=== PATIENT | male | born 1960 | race Caucasian/White ===

== ENCOUNTER 2017-12-05 09:55 | Observation (INO) | payer MEDICARE, OTHER ==
[~2017-12-05] VITALS: Ht 185.4 cm; Wt 103.1 kg
[2017-12-05] VITALS (13 sets, daily range): BP systolic 114–177; BP diastolic 70–93; PULSE 75–93; RESP 16–22; TEMP 97.1–98.8; O2SAT 94–100
[~2017-12-05 09:55] MED LIST: ALL220TA PO; AMLO5 PO; ASCO500C PO; ATOR40TA49 PO; AZAT50 PO; CALC600T34 PO; COMMODE 3:1; COPAXONE; ESZO3 PO; LISI-360 PO; LOSA50TA PO; MAGN400 PO; METF500 PO; OXYB5 PO
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
[2017-12-05] MEDS ORDERED: SODIUM CHLORIDE 0.9% FLUSH 10 ML FLUSH IVF PRN (10:45)
[2017-12-05 10:48] LABS: BASOPHIL # 0.1 TH/MM3 (0-0.2); BASOPHIL % 1.5 % (0.0-2.0); EOSINOPHIL # 0.1 TH/MM3 (0-0.4); EOSINOPHIL % 2.1 % (0.0-4.0); HEMOGLOBIN 7.5 GM/DL (13.0-17.0); LYMPH % 12.7 % (9.0-44.0); LYMPHOCYTE # 0.8 TH/MM3 (1.0-4.8); MEAN CELL VOLUME 61.2 FL (80.0-100.0); MEAN CORPUSCULAR HEMOGLOBIN 18.4 PG (27.0-34.0); MEAN PLATELET VOLUME 6.7 FL (7.0-11.0); MONO % 6.6 % (0.0-8.0); MONOCYTE # 0.4 TH/MM3 (0-0.9); NEUT % 77.1 % (16.0-70.0); PLATELET COUNT 438 TH/MM3 (150-450); RED BLOOD COUNT 4.08 MIL/MM3 (4.50-5.90); RED CELL DISTRIBUTION WIDTH 15.6 % (11.6-17.2); WHITE BLOOD COUNT 6.4 TH/MM3 (4.0-11.0)
[2017-12-05 11:04] LABS: CALCIUM 8.5 MG/DL (8.5-10.1)
[2017-12-05 11:05] LABS: BICARBONATE 26.1 MEQ/L (21.0-32.0)
[2017-12-05 11:08] LABS: CREATININE 1.2 MG/DL (0.60-1.30)
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
[2017-12-05 11:51] LABS: BILIRUBIN, URINE NEG (NEG); BLOOD, URINE NEG (NEG); GLUCOSE,URINE 500 mg/dL (NEG); KETONE, URINE TRACE mg/dL (NEG); NITRITE,URINE NEG (NEG); PH, URINE 5.5 (5.0-8.5); URINE COLOR YELLOW (YELLW/STRAW); URINE LEUKOCYTE ESTERASE NEG (NEG)
[2017-12-05 11:57] LABS: AMORPHOUS SEDIMENT, URINE FEW; RBC, URINE 0-3 /hpf (0-3); SQUAMOUS EPITHELIAL CELL URINE 0-5 /hpf (0-5)
[2017-12-05] MEDS ORDERED: SODIUM CHLOR 0.9% 250 ML INJ 250 ML IV ONE (12:30)
[2017-12-05] MEDS ORDERED: methylPREDNISolone SOD SUCC 125 MG/2 ML VIAL IV PUSH ONE (12:30)
[2017-12-05] MEDS ORDERED: INSULIN HUMAN REGULAR 1,000 UNITS/10 ML VIAL SQ ONE (12:45)
[2017-12-05 13:09] LABS: PROTHROMBIN TIME - PATIENT 9.9 SEC (9.8-11.6)
[2017-12-05] MEDS ORDERED: SODIUM CHLORIDE 0.9% FLUSH 10 ML FLUSH IV FLUSH PRN (13:15)
[2017-12-05] MEDS ORDERED: NALOXONE HCL 0.4 MG/ML AMP IV PUSH PRN (13:15)
[2017-12-05] MEDS ORDERED: MAGNESIUM HYDROXIDE SUSP 30 ML CUP PO PRN (14:00)
[2017-12-05] MEDS: methylPREDNISolone SOD SUCC 125 MG/2 ML VIAL IV SCH (18:03)
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
[2017-12-06] VITALS: BP 153/81; PULSE 88; RESP 20; TEMP 96.4; O2SAT 96
[2017-12-06] MEDS: SODIUM CHLORIDE 0.9% FLUSH 10 ML FLUSH IV FLUSH SCH ×3 (00:57→21:00)
[2017-12-06] MEDS: methylPREDNISolone SOD SUCC 125 MG/2 ML VIAL IV SCH ×4 (00:57→18:50)
[2017-12-06 06:42] LABS: HEMATOCRIT 30.3 % (39.0-51.0); HEMOGLOBIN 9.1 GM/DL (13.0-17.0); MEAN CELL VOLUME 66.1 FL (80.0-100.0); MEAN CORPUSCULAR HEMOGLOBIN 19.9 PG (27.0-34.0); MEAN CORPUSCULAR HGB CONC 30.1 % (32.0-36.0); NEUT % 91.7 % (16.0-70.0); PLATELET COUNT 394 TH/MM3 (150-450); RED BLOOD COUNT 4.59 MIL/MM3 (4.50-5.90); RED CELL DISTRIBUTION WIDTH 21.3 % (11.6-17.2); WHITE BLOOD COUNT 8.9 TH/MM3 (4.0-11.0)
[2017-12-06 06:43] LABS: AUTOMATED NEUTROPHIL # 8.1 TH/MM3 (1.8-7.7); BASOPHIL % 0.1 % (0.0-2.0); EOSINOPHIL % 0.1 % (0.0-4.0); LYMPH % 7.5 % (9.0-44.0); LYMPHOCYTE # 0.7 TH/MM3 (1.0-4.8); MONO % 0.6 % (0.0-8.0); MONOCYTE # 0.1 TH/MM3 (0-0.9)
[2017-12-06 06:46] LABS: CHLORIDE 106 MEQ/L (98-107); SODIUM (NA) 139 MEQ/L (136-145)
[2017-12-06 06:54] LABS: ALBUMIN 3.3 GM/DL (3.4-5.0); BICARBONATE 21.4 MEQ/L (21.0-32.0); BLOOD UREA NITROGEN 28 MG/DL (7-18); CALCIUM 8.5 MG/DL (8.5-10.1); GLUCOSE,RANDOM 317 MG/DL (74-106)
[2017-12-06 06:55] LABS: ALT (GPT) 36 U/L (12-78); AST (GOT) 15 U/L (15-37)
[2017-12-06 06:57] LABS: GLOMERULAR FILTRATION RATE 57 ML/MIN (>89); TOTAL BILIRUBIN ADULT 1.4 MG/DL (0.2-1.0); TOTAL PROTEIN 6.9 GM/DL (6.4-8.2)
[2017-12-06 06:58] LABS: ALKALINE PHOSPHATASE 106 U/L (45-117)
[2017-12-06 07:34] LABS: OVALOCYTES 1+ (NORMAL)
[2017-12-06 08:00] VITALS: BP 154/79; PULSE 88; RESP 18; TEMP 97.3; O2SAT 94
--- NOTE | 2017-12-06 08:34 | MB ---
cc: Noah Shafer MD, PhD DATE: 12/05/2017 REASON FOR CONSULTATION: Multiple sclerosis exacerbation. HISTORY OF PRESENT ILLNESS: Mr. 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 He takes Tecfidera for that. He now presents with urinary incontinence, increasing right leg weakness as well. He was also found to be very anemic in the ER with low hemoglobin of 7.5. He denies any blood loss. Denies any blood in the stool or dark tarry stools. PAST MEDICAL HISTORY: He has a history of multiple sclerosis as noted above. PHYSICAL EXAMINATION: NEUROLOGIC: He is alert and oriented. Speech is normal. Cranial nerves, he has got bilateral Is and Os with dissociated nystagmus. Motor exam, 5/5 in all groups in both upper extremities. He is weak in the right leg at 4/5 proximally and distally. Normal strength left leg. Reflexes are 2+ symmetric. IMAGING: CT of the brain, no acute change. LABORATORY DATA: White count 6400, hemoglobin 7.5, hematocrit 25%, platelet count 438,000. The PT is 9.9, INR 1.0. Sodium is 141, potassium 4.6, chloride 108, CO2 is 26.1, the BUN is 23, creatinine 1.2, GFR 62, glucose 260. Urinalysis, the pH is 5.5, specific gravity is 1.030. IMPRESSION AND PLAN: 1. Multiple sclerosis exacerbation. Recommend Solu-Medrol 250 mg IV every 6 hours for 3-5 days. 2. Anemia, rule out gastrointestinal blood loss, rule out other cause of anemia. Rule out effect of Tecfidera. Noah Shafer MD, PhD SELENE/JONATHON , 08:17 PM , 08:44 PM
--- NOTE | 2017-12-06 11:50 | HHI.PR ---
Subjective Remarks MS exacerbation appears improved. Patient is continent overnight. Anemia improved status post transfusion. Either a bowel movement for stool study of blood versus documentation of stable or improve in hemoglobin will be needed prior to consideration for discharge. In regards to his MS exacerbation he may be ready for discharge soon, neurology evaluation pending. Objective Vital Signs Date Time Temp Pulse Resp B/P (MAP) Pulse Ox O2 Delivery O2 Flow Rate FiO2 12/06/17 08:00 97.3 88 18 154/79 (104) 94 12/06/17 00:00 96.4 88 20 153/81 (105) 96 12/05/17 20:26 98.5 85 16 158/87 (110) 98 12/05/17 20:00 97.1 90 22 158/77 (104) 94 12/05/17 18:44 98.8 88 18 164/87 98 12/05/17 18:31 98.4 90 18 177/87 98 12/05/17 18:26 89 18 168/93 (118) 99 Room Air 12/05/17 17:51 98.1 87 19 158/87 100 12/05/17 16:46 98.2 89 18 161/87 99 12/05/17 16:31 98.0 93 18 157/80 98 12/05/17 15:00 Room Air 12/05/17 15:00 99 Room Air 12/05/17 13:10 75 18 146/78 (100) 100 Room Air I/O 12/05/17 12/05/17 12/05/17 12/06/17 12/06/17 12/06/17 07:00 15:00 23:00 07:00 15:00 23:00 Intake Total 240 ml 1600 ml 420 ml Output Total 350 ml 250 ml Balance -110 ml 1350 ml 420 ml Intake Oral 240 ml 400 ml 420 ml Packed Cells 800 ml Blood Product IV Normal Saline Flush 400 ml Output Urine Total 350 ml 250 ml # Voids 2 1 3 1 # Bowel Movements 0 Result Diagram: 12/06/1755412/06/17 0555 Objective Remarks GENERAL: NAD, A&Ox3, chronic slurred speech. HEAD: Normocephalic. NECK: Supple, trachea midline. No lymphadenopathy. EYES: No scleral icterus. No injection or drainage. CARDIOVASCULAR: Regular rate and rhythm without murmurs, gallops, or rubs. RESPIRATORY: Breath sounds equal bilaterally. No accessory muscle use. GASTROINTESTINAL: Abdomen soft, non-tender, nondistended. MUSCULOSKELETAL: No cyanosis, or edema. SKIN: Warm and dry. NEURO: No focal neurological deficitis. Chronic slurred speech and motor neuro deficits due to MS. A/P Problem List: (1) Multiple sclerosis exacerbation ICD Code: G35 - Multiple sclerosis Status: Acute (2) Multiple sclerosis ICD Code: G35 - Multiple sclerosis Status: Acute (3) Symptomatic anemia ICD Code: D64.9 - Anemia, unspecified Status: Acute (4) Anemia ICD Code: D64.9 - Anemia, unspecified Assessment and Plan 57-year-old male admitted secondary to multiple sclerosis exacerbation with finding of symptomatic anemia Multiple sclerosis exacerbation Improving on present treatment Continue steroids Neurology following Solu-Medrol 250 mg IV every 6 hours for total 3-5 days, per neurology Monitor for improvement in symptoms Symptomatic anemia Transfuse 1 unit packed red blood cells today Test stool for blood GI workup if stool testing is positive for blood Hematology workup if stool testing is negative for blood Follow hemoglobin levels Continue workup Diabetes mellitus type 2 Follow blood sugars Insulin sliding scale Diabetic diet DVT prophylaxis Live Ba MD Dec 06, 2017 11:50
[2017-12-06 12:00] VITALS: BP 138/71; PULSE 103; RESP 18; TEMP 98; O2SAT 95
[2017-12-06 15:28] LABS: HEMATOCRIT 33.5 % (39.0-51.0); HEMOGLOBIN 9.9 GM/DL (13.0-17.0)
[2017-12-06 16:00] VITALS: BP 144/70; PULSE 72; RESP 16; TEMP 97.6; O2SAT 95
[2017-12-06 20:00] VITALS: BP 163/98; PULSE 98; RESP 20; TEMP 99.4; O2SAT 93
[2017-12-07] VITALS: BP 166/93; PULSE 109; RESP 20; TEMP 97.6; O2SAT 92
[2017-12-07] MEDS: methylPREDNISolone SOD SUCC 125 MG/2 ML VIAL IV SCH ×3 (00:04→12:24)
[2017-12-07] MEDS: ONDANSETRON HCL 4 MG/2 ML VIAL IVP PRN ×2 (06:13→12:21)
[2017-12-07] MEDS ORDERED: ENALAPRILAT 1.25 MG/ML VIAL IV PUSH PRN (07:30)
[2017-12-07] MEDS ORDERED: cloNIDine HCL 0.1 MG TAB PO PRN (07:30)
[2017-12-07] MEDS ORDERED: DEXTROSE 50% IN WATER 50 ML VIAL(D50) IV PUSH PRN (07:30)
[2017-12-07] MEDS ORDERED: GLUCAGON 1 MG/ML VIAL OTHER PRN (07:30)
[2017-12-07 08:00] VITALS: BP 185/95; PULSE 99; RESP 18; TEMP 98.4; O2SAT 96
[2017-12-07] MEDS: INSULIN ASPART SUPPLEMENTAL SCALE SQ SCH ×2 (08:08→11:47)
[2017-12-07] MEDS: SODIUM CHLORIDE 0.9% FLUSH 10 ML FLUSH IV FLUSH SCH (08:09)
[2017-12-07 08:52] LABS: AUTOMATED NEUTROPHIL # 13.8 TH/MM3 (1.8-7.7); BASOPHIL % 0.2 % (0.0-2.0); EOSINOPHIL % 0.1 % (0.0-4.0); HEMATOCRIT 34.4 % (39.0-51.0); HEMOGLOBIN 10.6 GM/DL (13.0-17.0); LYMPHOCYTE # 0.6 TH/MM3 (1.0-4.8); MEAN CORPUSCULAR HEMOGLOBIN 20.6 PG (27.0-34.0); MEAN CORPUSCULAR HGB CONC 30.7 % (32.0-36.0); MONO % 1.6 % (0.0-8.0); MONOCYTE # 0.2 TH/MM3 (0-0.9); NEUT % 94.1 % (16.0-70.0); PLATELET COUNT 449 TH/MM3 (150-450); RED BLOOD COUNT 5.13 MIL/MM3 (4.50-5.90); RED CELL DISTRIBUTION WIDTH 21.7 % (11.6-17.2); WHITE BLOOD COUNT 14.6 TH/MM3 (4.0-11.0)
[2017-12-07 09:10] LABS: CHLORIDE 104 MEQ/L (98-107); SODIUM (NA) 140 MEQ/L (136-145)
[2017-12-07 09:14] LABS: CALCIUM 8.8 MG/DL (8.5-10.1)
[2017-12-07 09:15] LABS: ALBUMIN 3.6 GM/DL (3.4-5.0); BICARBONATE 24.6 MEQ/L (21.0-32.0)
[2017-12-07 09:41] LABS: OVALOCYTES 1+ (NORMAL)
[2017-12-07 09:46] LABS: ALKALINE PHOSPHATASE 112 U/L (45-117); ALT (GPT) 53 U/L (12-78); AST (GOT) 23 U/L (15-37); BLOOD UREA NITROGEN 49 MG/DL (7-18); GLOMERULAR FILTRATION RATE 45 ML/MIN (>89); TOTAL BILIRUBIN ADULT 0.7 MG/DL (0.2-1.0); TOTAL PROTEIN 7.4 GM/DL (6.4-8.2)
[2017-12-07 10:19] LABS: GLUCOSE,RANDOM 485 MG/DL (74-106)
[2017-12-07 11:02] LABS: % SATURATION IRON PROFILE 4.9 % (20-50); FERRITIN 62 NG/ML (26-388); IRON (FE) 24 MCG/DL (65-175); TOTAL IRON BINDING CAPACITY 487 MCG/DL (250-450)
[2017-12-07 12:00] VITALS: BP 149/76; PULSE 103; RESP 18; TEMP 97.3; O2SAT 96
[2017-12-07] MEDS ORDERED: SOLU1INJ IV (13:57)
--- NOTE | 2017-12-07 13:59 | HHI.FF ---
Face to Face Verification Diagnosis: (1) Multiple sclerosis exacerbation (2) Symptomatic anemia Home Health Nursing Order: Medical education Signs/symptoms of disease process IV medication administration Instructions: One time IV solumedrol dosing, on 12/08/17. Stool collection, to be sent to lab. Hgb&Hct blood draw in 3-5 days. Follow for MS exacerbation symptoms ( neurological decline from baseline). I have seen patient Chris Wilkes on 12/07/17. My clinical findings support the need for the requested home health care services because: Ltd mobility - disease progression Deconditioned w/ increased weakness Limited ability to care for self High risk of falls Injectable med education/admin I certify that my clinical findings support that this patient is homebound because: Unsteady gait/balance Unsafe to leave home unassisted [id number] bed/chair Unable to use public transportation Live Melissa MD Dec 07, 2017 13:59
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
--- NOTE | 2017-12-07 19:37 | HHI.PR ---
Review/Management Diagnosis multiple sclerosis exacerbation Plan ok to dc home with outpatient solumedrol one more day, then prednisone taper-- 60 ,g daily to reduce by 10 mg every two days until off RTO my office 1 week Diagnosis/Plan: Subjective Subjective Comments No acute events reported No headache reports some improvement but still very weak Allergies Allergies Coded Allergies No Known Allergies (Verified Allergy, Unknown, 12/05/17) Exam I&O / VS 12/07/17 12/07/17 12/08/17 15:00 23:00 07:00 Intake Total 480 ml Balance 480 ml Intake Oral 480 ml # Voids 4 Vital Signs Date Time Temp Pulse Resp B/P (MAP) Pulse Ox O2 Delivery O2 Flow Rate FiO2 12/07/17 12:00 97.3 103 18 149/76 (100) 96 12/07/17 08:00 98.4 99 18 185/95 (125) 96 12/07/17 00:00 97.6 109 20 166/93 (117) 92 12/06/17 20:00 99.4 98 20 163/98 (119) 93 Respiratory: Lungs CTA, Non-labored respirations, BS equal, Symmetrical expansion Cardiology: Normal rate Musculoskeletal: ROM Exam Comments alert, speech normal CN intact MOTOR 4/5 BUE and BLE Objective Micro and Labs Laboratory Tests Test 12/07/17 08:13 White Blood Count 14.6 Red Blood Count 5.13 Hemoglobin 10.6 Hematocrit 34.4 Mean Corpuscular Volume 67.0 Mean Corpuscular Hemoglobin 20.6 Mean Corpuscular Hemoglobin Concent 30.7 Red Cell Distribution Width 21.7 Platelet Count 449 Mean Platelet Volume 7.0 Neutrophils (%) (Auto) 94.1 Lymphocytes (%) (Auto) 4.0 Monocytes (%) (Auto) 1.6 Eosinophils (%) (Auto) 0.1 Basophils (%) (Auto) 0.2 Neutrophils # (Auto) 13.8 Lymphocytes # (Auto) 0.6 Monocytes # (Auto) 0.2 Eosinophils # (Auto) 0.0 Basophils # (Auto) 0.0 CBC Comment AUTO DIFF Differential Comment AUTO DIFF CONFIRMED Ovalocytes 1+ Blood Urea Nitrogen 49 Creatinine 1.60 Random Glucose 485 Total Protein 7.4 Albumin 3.6 Calcium Level 8.8 Alkaline Phosphatase 112 Aspartate Amino Transf (AST/SGOT) 23 Alanine Aminotransferase (ALT/SGPT) 53 Total Bilirubin 0.7 Sodium Level 140 Potassium Level 4.5 Chloride Level 104 Carbon Dioxide Level 24.6 Anion Gap 11 Estimat Glomerular Filtration Rate 45 Iron Level 24 Total Iron Binding Capacity 487 Percent Iron Saturation 4.9 Ferritin 62 Vitamin B12 Level 273 Noah Shafer MD PhD Dec 07, 2017 19:37
== END 2017-12-07 17:34 | disposition home or self-care (01) ==
LOC: PHED 09:55 → PHEDA 12:51 → INTOOBSV 12:51 → PH3B 20:20
PROVIDERS: ADMIT Hospitalist; ATTEND Hospitalist
DX: G35 Multiple sclerosis (principal); E11.65 Type 2 diabetes mellitus with hyperglycemia; D64.9 Anemia, unspecified; R32 Unspecified urinary incontinence; R81 Glycosuria; I10 Essential (primary) hypertension; E78.00 Pure hypercholesterolemia, unspecified; Z79.899 Other long term (current) drug therapy; Z82.49 Family history of ischemic heart disease and other diseases of the circulatory system
CPT/HCPCS: 36430; 70450; 80048; 80053; 81001; 82607; 82728; 82948; 83036; 83540; 83550; 85014; 85018; 85025; 85610; 86850; 86900; 86901; 86920; 96361; 96372; 96374; 96376; 99291; G0378; J1815; J2405; J2930; J7050; P9016

== ENCOUNTER 2017-12-17 14:27 | Inpatient (IN) | payer MEDICARE, OTHER ==
[~2017-12-17] VITALS: Ht 185.4 cm; Wt 116.7 kg
[~2017-12-17 14:27] MED LIST changes: -ALL220TA PO; -COMMODE 3:1; +SOLU1INJ IV
[2017-12-17 15:23] VITALS: BP 121/79; PULSE 66; RESP 20; TEMP 98.3; O2SAT 100
[2017-12-17 15:24] VITALS: O2SAT 99
[2017-12-17] MEDS ORDERED: PANTOPRAZOLE SODIUM 40 MG VIAL IV PUSH ONE (15:30)
[2017-12-17] MEDS ORDERED: SODIUM CHLORIDE 0.9% FLUSH 10 ML FLUSH IVF PRN (15:30)
[2017-12-17] MEDS ORDERED: SODIUM CHLORID 0.9% 500 ML INJ 500 ML IV ONE (15:30)
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
[2017-12-17 15:45] LABS: AUTOMATED NEUTROPHIL # 16.3 TH/MM3 (1.8-7.7); BASOPHIL # 0.1 TH/MM3 (0-0.2); BASOPHIL % 0.3 % (0.0-2.0); EOSINOPHIL # 0.1 TH/MM3 (0-0.4); EOSINOPHIL % 0.5 % (0.0-4.0); HEMATOCRIT 31.8 % (39.0-51.0); HEMOGLOBIN 9.7 GM/DL (13.0-17.0); LYMPH % 7.7 % (9.0-44.0); LYMPHOCYTE # 1.5 TH/MM3 (1.0-4.8); MEAN CELL VOLUME 68.7 FL (80.0-100.0); MEAN CORPUSCULAR HEMOGLOBIN 20.9 PG (27.0-34.0); MEAN CORPUSCULAR HGB CONC 30.5 % (32.0-36.0); MEAN PLATELET VOLUME 7.2 FL (7.0-11.0); MONO % 4.5 % (0.0-8.0); MONOCYTE # 0.8 TH/MM3 (0-0.9); PLATELET COUNT 407 TH/MM3 (150-450); RED BLOOD COUNT 4.63 MIL/MM3 (4.50-5.90); RED CELL DISTRIBUTION WIDTH 26.5 % (11.6-17.2); WHITE BLOOD COUNT 18.7 TH/MM3 (4.0-11.0)
[2017-12-17 15:55] LABS: BILIRUBIN, URINE NEG (NEG); BLOOD, URINE NEG (NEG); GLUCOSE,URINE 1000 mg/dL (NEG); KETONE, URINE NEG (NEG); MUCUS URINE FEW /lpf (OCC); NITRITE,URINE NEG (NEG); SQUAMOUS EPITHELIAL CELL URINE <1 /hpf (0-5); URIC ACID CRYSTALS, URINE OCC /hpf; URINE COLOR YELLOW (YELLW/STRAW); URINE LEUKOCYTE ESTERASE NEG (NEG)
[2017-12-17 16:14] LABS: AST (GOT) 19 U/L (15-37); BICARBONATE 25.1 MEQ/L (21.0-32.0); BLOOD UREA NITROGEN 30 MG/DL (7-18); CALCIUM 8.5 MG/DL (8.5-10.1); CHLORIDE 100 MEQ/L (98-107); CREATININE 1.21 MG/DL (0.60-1.30); GLOMERULAR FILTRATION RATE 62 ML/MIN (>89); GLUCOSE,RANDOM 301 MG/DL (74-106); MAGNESIUM 2.3 MG/DL (1.5-2.5); SODIUM (NA) 136 MEQ/L (136-145)
[2017-12-17 16:15] LABS: ALT (GPT) 53 U/L (12-78)
[2017-12-17 16:17] LABS: OVALOCYTES 2+ (NORMAL)
[2017-12-17 16:19] LABS: ALKALINE PHOSPHATASE 93 U/L (45-117); TOTAL BILIRUBIN ADULT 0.4 MG/DL (0.2-1.0); TOTAL PROTEIN 6.3 GM/DL (6.4-8.2); TROPONIN I LESS THAN 0.02 NG/ML (0.02-0.05)
[2017-12-17 16:30] VITALS: BP 137/87; PULSE 64; RESP 18; O2SAT 100
[2017-12-17] MEDS ORDERED: INSULIN HUMAN REGULAR 1,000 UNITS/10 ML VIAL IV PUSH ONE (16:30)
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
[2017-12-17 17:30] VITALS: BP 139/84; PULSE 72; RESP 18; O2SAT 100
[2017-12-17] MEDS ORDERED: GLIP5TAB8 PO (17:49)
[2017-12-17] MEDS ORDERED: DIME240C PO (17:49)
[2017-12-17] MEDS ORDERED: PROP40TA3 PO (17:49)
[2017-12-17] MEDS ORDERED: CHOL10008 PO (17:49)
[2017-12-17] MEDS ORDERED: LOSA50TA PO (17:49)
[2017-12-17] MEDS ORDERED: CALCTAB98 PO (17:49)
[2017-12-17] MEDS ORDERED: MAGN500T2 PO (17:49)
[2017-12-17] MEDS ORDERED: OXYB5TAB8 PO ×2 (17:49)
[2017-12-17] MEDS ORDERED: VITA250T3 PO (17:49)
[2017-12-17] MEDS ORDERED: METF1000 PO (17:49)
[2017-12-17] MEDS ORDERED: ATOR40TA16 PO (17:49)
[2017-12-17 17:52] VITALS: BP 145/87; PULSE 83; RESP 14; O2SAT 100
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
[2017-12-17] MEDS ORDERED: SODIUM CHLORIDE 0.9% FLUSH 10 ML FLUSH IV FLUSH PRN (18:30)
[2017-12-17] MEDS ORDERED: GLUCAGON 1 MG/ML VIAL OTHER PRN (18:30)
[2017-12-17] MEDS ORDERED: NALOXONE HCL 0.4 MG/ML AMP IV PUSH PRN (18:30)
[2017-12-17] MEDS ORDERED: DEXTROSE 50% IN WATER 50 ML VIAL(D50) IV PUSH PRN (18:30)
[2017-12-17] MEDS ORDERED: ACETAMINOPHEN 325 MG TAB PO PRN (18:30)
[2017-12-17] MEDS ORDERED: BISACODYL 10 MG SUPP RECTAL PRN (18:30)
[2017-12-17 19:50] VITALS: BP 116/65; PULSE 77; RESP 17; TEMP 98.4; O2SAT 99
[2017-12-17] MEDS: SODIUM CHLOR 0.45% 1000 ML INJ 1,000 ML IV SCH (19:52)
[2017-12-17] MEDS: SODIUM CHLORIDE 0.9% FLUSH 10 ML FLUSH IV FLUSH SCH (19:53)
[2017-12-17] MEDS: PANTOPRAZOLE SODIUM 40 MG VIAL IV PUSH SCH (19:53)
[2017-12-17] MEDS ORDERED: ATORVASTATIN 40 MG TAB PO SCH (21:00)
[2017-12-17] MEDS ORDERED: DOCUSATE SODIUM 50 MG/SENNA 8.6 MG TAB PO SCH (21:00)
[2017-12-17] MEDS: INSULIN ASPART SUPPLEMENTAL SCALE SQ SCH (21:00)
[2017-12-17] MEDS ORDERED: PROPRANOLOL HCL 40 MG TAB PO SCH (21:00)
[2017-12-17] MEDS ORDERED: OXYBUTYNIN CHLORIDE 5 MG TAB PO SCH (21:00)
[2017-12-17] MEDS ORDERED: MAGNESIUM OXIDE 400 MG TAB PO SCH (21:00)
[2017-12-17] MEDS: ATORVASTATIN 40 MG PO SCH (22:56)
[2017-12-17] MEDS: ASCORBIC ACID 500 MG TAB PO SCH (22:57)
[2017-12-17] MEDS: OXYBUTYNIN 5 MG PO SCH (22:57)
[2017-12-17] MEDS: DIMETHYL FUMARATE 240 MG PO SCH (22:57)
[2017-12-18] VITALS: BP 121/78; PULSE 81; RESP 17; TEMP 97.4; O2SAT 98
[2017-12-18 00:46] LABS: HEMATOCRIT 29.2 % (39.0-51.0); HEMOGLOBIN 9.1 GM/DL (13.0-17.0)
[2017-12-18 04:00] VITALS: BP 140/80; PULSE 85; RESP 17; TEMP 97.8; O2SAT 98
[2017-12-18] MEDS: PROPRANOLOL 20 MG PO SCH ×4 (05:36→18:20)
[2017-12-18] MEDS ORDERED: PROPRANOLOL HCL 40 MG TAB PO SCH (06:00)
[2017-12-18 07:03] LABS: BASOPHIL % 0.4 % (0.0-2.0); EOSINOPHIL # 0.2 TH/MM3 (0-0.4); HEMOGLOBIN 9.3 GM/DL (13.0-17.0); LYMPH % 9.9 % (9.0-44.0); LYMPHOCYTE # 1.1 TH/MM3 (1.0-4.8); MEAN CELL VOLUME 67.9 FL (80.0-100.0); MEAN PLATELET VOLUME 8.1 FL (7.0-11.0); MONO % 4.4 % (0.0-8.0); MONOCYTE # 0.5 TH/MM3 (0-0.9); NEUT % 83.3 % (16.0-70.0); PLATELET COUNT 318 TH/MM3 (150-450); RED BLOOD COUNT 4.42 MIL/MM3 (4.50-5.90); RED CELL DISTRIBUTION WIDTH 26.2 % (11.6-17.2); WHITE BLOOD COUNT 10.8 TH/MM3 (4.0-11.0)
[2017-12-18 07:45] LABS: BLOOD UREA NITROGEN 22 MG/DL (7-18); CALCIUM 7.9 MG/DL (8.5-10.1); CHLORIDE 102 MEQ/L (98-107); CREATININE 1.01 MG/DL (0.60-1.30); GLOMERULAR FILTRATION RATE 76 ML/MIN (>89); GLUCOSE,RANDOM 273 MG/DL (74-106); SODIUM (NA) 135 MEQ/L (136-145)
[2017-12-18 07:47] LABS: IRON (FE) 28 MCG/DL (65-175)
[2017-12-18 07:50] LABS: % SATURATION IRON PROFILE 9.3 % (20-50); FERRITIN 26 NG/ML (26-388); TOTAL IRON BINDING CAPACITY 301 MCG/DL (250-450)
[2017-12-18 08:00] VITALS: BP 118/73; PULSE 74; RESP 17; TEMP 98.2; O2SAT 97
[2017-12-18] MEDS ORDERED: glipiZIDE 5 MG TAB PO SCH (08:00)
[2017-12-18] MEDS: SODIUM CHLOR 0.45% 1000 ML INJ 1,000 ML IV SCH (08:14)
[2017-12-18] MEDS: INSULIN ASPART SUPPLEMENTAL SCALE SQ SCH ×4 (08:14→21:00)
[2017-12-18] MEDS: MAGNESIUM OXIDE 400 MG PO SCH (08:17)
[2017-12-18 08:21] LABS: OVALOCYTES 1+ (NORMAL)
[2017-12-18] MEDS: OXYBUTYNIN 5 MG PO SCH ×2 (08:21→21:35)
[2017-12-18] MEDS: DIMETHYL FUMARATE 240 MG PO SCH ×2 (08:22→21:35)
[2017-12-18] MEDS: LOSARTAN POTASSIUM 50 MG PO SCH (08:23)
[2017-12-18] MEDS: PANTOPRAZOLE SODIUM 40 MG VIAL IV PUSH SCH ×2 (08:24→21:34)
[2017-12-18] MEDS: CHOLECALCIFEROL (VIT D3) 1000 UNIT TAB PO SCH (08:24)
[2017-12-18] MEDS: SODIUM CHLORIDE 0.9% FLUSH 10 ML FLUSH IV FLUSH SCH ×2 (08:28→21:00)
--- NOTE | 2017-12-18 08:44 | HHI.PR ---
Subjective Remarks 57 year old male with primary progressive multiple sclerosis presenting with increasing weakness, confusion, and inability to care for himself. He is accompanied by his who provides most of the history. He was hospitalized from 12/05-12/07 for MS exacerbation and treated with IV Solumedrol and sent home on a tapering course of prednisone that he is still taking. His is very concerned because before he was able to at least help transfer himself (i.e. to and from his wheelchair) but now he is completely dependent and she has been having an increasingly difficult time taking care of him. Currently he is getting three hours a day of [facility] which is all they can afford. She describes him as " weight." He was having lower extremity weakness prior to his last hospitalization and states he had mild improvement on the steroids but feels that it is worsening once more. He also endorses bilateral leg pain. Prior to the last hospitalization he was taking Aleve regularly; he was found to have a hemoglobin around 7 and was transfused a unit but had negative Hemoccult. He was told to discontinue the Aleve. He has been on Zantac while on the tapering prednisone but today he had a large, black, liquid bowel movement. He had no associated nausea, vomiting, fever, chills, chest pain, or abdominal pain. He has never had a colonoscopy. 12/18: Seen in his bedroom discussed with nurse Miss Gomez patient stable, already consulted by GI specialist, the patient is Wheelchair bound, Hemoglobin 9.3 recommended for EGD and Colonoscopy he is DNR, continue PPIs, continue Vitamin D, Seen by Neurology specialist with diagnosis of Multiple sclerosis, thinking in IV plasma exchange , the patient has uncontrolled Diabetes Mellitus type II. asked for hemoglobin A1C. no nausea, vomit or diarrhea. Objective Vital Signs Date Time Temp Pulse Resp B/P (MAP) Pulse Ox O2 Delivery O2 Flow Rate FiO2 12/18/17 08:00 98.2 74 17 118/73 (88) 97 12/18/17 04:00 97.8 85 17 140/80 (100) 98 12/18/17 00:00 97.4 81 17 121/78 (92) 98 12/17/17 19:50 98.4 77 17 116/65 (82) 99 12/17/17 19:39 4/7/18 19:01 12/17/17 17:52 83 14 145/87 (106) 100 Room Air 12/17/17 17:30 72 18 139/84 (102) 100 Room Air 12/17/17 16:30 64 18 137/87 (104) 100 Room Air 12/17/17 15:24 99 Room Air 12/17/17 15:23 98.3 66 20 121/79 (93) 100 Room Air I/O 12/17/17 12/17/17 12/17/17 12/18/17 12/18/17 12/18/17 07:00 15:00 23:00 07:00 15:00 23:00 Intake Total 500 ml 965 ml Output Total 100 ml 250 ml Balance 400 ml 715 ml Intake Oral 360 ml IV Total 500 ml 605 ml Output Urine Total 100 ml 250 ml # Voids 1 # Bowel Movements 0 Result Diagram: 12/18/17 0515 12/18/17 0515 Imaging Last Impressions Chest X-Ray 12/17/17 1519 Signed Impressions: Service Date/Time: Sunday, December 17, 2017 15:23 - CONCLUSION: Cardiomegaly. Daren Escamilla MD Procedures None Other Results Laboratory Tests Test 12/17/17 15:20 12/17/17 18:28 12/18/17 05:15 Platelet Estimate HIGH Platelet Morphology Comment NORMAL Urine Color YELLOW Urine Turbidity CLEAR Urine pH 5.0 Urine Specific [place] 1.030 Urine Protein TRACE mg/dL Urine Glucose (UA) 1000 mg/dL Urine Ketones NEG mg/dL Urine Occult Blood NEG Urine Nitrite NEG Urine Bilirubin NEG Urine Urobilinogen LESS THAN 2.0 MG/DL Urine Leukocyte Esterase NEG Urine RBC LESS THAN 1 /hpf Urine WBC 1 /hpf Urine Squamous Epithelial Cells <1 /hpf Urine Uric Acid Crystals OCC /hpf Urine Mucus FEW /lpf Microscopic Urinalysis Comment CULT NOT INDICATED Blood Urea Nitrogen 30 MG/DL 22 MG/DL Creatinine 1.21 MG/DL 1.01 MG/DL Random Glucose 301 MG/DL 273 MG/DL Total Protein 6.3 GM/DL Albumin 3.0 GM/DL Calcium Level 8.5 MG/DL 7.9 MG/DL Magnesium Level 2.3 MG/DL Alkaline Phosphatase 93 U/L Aspartate Amino Transf (AST/SGOT) 19 U/L Alanine Aminotransferase (ALT/SGPT) 53 U/L Total Bilirubin 0.4 MG/DL Sodium Level 136 MEQ/L 135 MEQ/L Potassium Level 4.3 MEQ/L 3.5 MEQ/L Chloride Level 100 MEQ/L 102 MEQ/L Carbon Dioxide Level 25.1 MEQ/L 23.0 MEQ/L Total Creatine Kinase 39 U/L Troponin I LESS THAN 0.02 NG/ML B-Hydroxybutyrate 0.13 MMOL/L Prothrombin Time 10.0 SEC Prothromb Time International Ratio 1.0 RATIO Activated Partial Thromboplast Time 18.2 SEC White Blood Count 10.8 TH/MM3 Red Blood Count 4.42 MIL/MM3 Hemoglobin 9.3 GM/DL Hematocrit 30.0 % Mean Corpuscular Volume 67.9 FL Mean Corpuscular Hemoglobin 21.0 PG Mean Corpuscular Hemoglobin Concent 31.0 % Red Cell Distribution Width 26.2 % Platelet Count 318 TH/MM3 Mean Platelet Volume 8.1 FL Neutrophils (%) (Auto) 83.3 % Lymphocytes (%) (Auto) 9.9 % Monocytes (%) (Auto) 4.4 % Eosinophils (%) (Auto) 2.0 % Basophils (%) (Auto) 0.4 % Neutrophils # (Auto) 9.0 TH/MM3 Lymphocytes # (Auto) 1.1 TH/MM3 Monocytes # (Auto) 0.5 TH/MM3 Eosinophils # (Auto) 0.2 TH/MM3 Basophils # (Auto) 0.0 TH/MM3 CBC Comment AUTO DIFF Differential Comment AUTO DIFF CONFIRMED Ovalocytes 1+ Anion Gap 10 MEQ/L Estimat Glomerular Filtration Rate 76 ML/MIN Iron Level 28 MCG/DL Total Iron Binding Capacity 301 MCG/DL Percent Iron Saturation 9.3 % Ferritin 26 NG/ML Objective Remarks GENERAL: Well-nourished, no acute distress. SKIN: No rashes, ecchymoses or lesions. Cool and dry. HEENT: Atraumatic. Normocephalic. NECK: Trachea midline. No JVD or lymphadenopathy. Supple. CARDIOVASCULAR: Regular rate and rhythm without murmurs. RESPIRATORY: Clear to auscultation. Breath sounds equal bilaterally. No wheezes , rales, or rhonchi. GASTROINTESTINAL: Abdomen soft, nontender, nondistended. No hepatosplenomegaly or palpable masses. No guarding. MUSCULOSKELETAL: Extremities without clubbing, cyanosis, or edema. NEUROLOGICAL: Awake and alert. Medications and IVs Current Medications Medications (Trade) Dose Ordered Sig/Karina Route Start Time Stop Time Status Last Admin (D50w (Vial) Inj) 50 ml UNSCH PRN IV PUSH 12/17/17 18:30 (Glucagon Inj) 1 mg UNSCH PRN OTHER 12/17/17 18:30 (NovoLOG SUPPLEMENTAL SCALE) 1 ACHS SLIDING SCALE SQ 12/17/17 21:00 12/18/17 08:14 Sodium Chloride 1,000 ml @ 75 mls/hr [id number] IV 12/17/17 18:23 12/18/17 08:14 (NS Flush) 2 ml UNSCH PRN IV FLUSH 12/17/17 18:30 (NS Flush) 2 ml BID IV FLUSH 12/17/17 21:00 (Tylenol) 650 mg Q4H PRN PO 12/17/17 18:30 (Zofran Inj) 4 mg Q6H PRN IVP 12/17/17 18:30 (Narcan Inj) 0.4 mg UNSCH PRN IV PUSH 12/17/17 18:30 (Milk Of Magnesia Liq) 30 ml Q12H PRN PO 12/17/17 18:30 (Senokot) 17.2 mg Q12H PRN PO 12/17/17 18:30 (Dulcolax Supp) 10 mg DAILY PRN RECTAL 12/17/17 18:30 (Lactulose Liq) 30 ml DAILY PRN PO 12/17/17 18:30 (Protonix Inj) 40 mg Q12H IV PUSH 12/17/17 20:00 12/18/17 08:24 (Vitamin D3) 500 units DAILY PO 12/18/17 09:00 12/18/17 08:24 (Vitamin C) 500 mg HS PO 12/17/17 21:00 12/17/17 22:57 Patient Own Medication PT OWN MED:(Dimethyl Fumar... BID PO 12/17/17 21:00 12/18/17 08:22 Patient Own Medication PT OWN MED: OXYBUTY... HS PO 12/17/17 21:00 12/17/17 22:57 Patient Own Medication PT OWN MED: OXYBUTY... DAILY PO 12/18/17 09:00 12/18/17 08:21 Patient Own Medication PT OWN MED: PROPRANO... BID@0600,1200 PO 12/18/17 06:00 12/18/17 05:36 Patient Own Medication PT OWN MED: PROPRANO... DAILY@1800 PO 12/18/17 18:00 Patient Own Medication PT OWN MED: LOSAR... DAILY PO 12/18/17 09:00 12/18/17 08:23 Patient Own Medication PT OWN MED: MAGNES... DAILY PO 12/18/17 09:00 12/18/17 08:17 Patient Own Medication PT OWN MED: ATORVASTATIN 40 MG PO HS HS PO 12/17/17 22:00 12/17/17 22:56 (Glucophage) 1,000 mg BIDPC PO 12/18/17 09:00 Future Hold (Glucotrol) 2.5 mg DAILY@0800,1700 PO 12/18/17 08:00 Future Hold A/P Assessment and Plan 57 YOWM with primary progressive MS, DM, and HLD presenting with increasing lower extremity weakness and dependence on his who feels she can no longer provide for him. He had an episode of melena today and was found to have a positive Hemoccult in the ED with associated anemia. 1. GI bleed, recommended by GI specialist to get EGD, and Colonoscopy for tomorrow, continue PPIs 2. Generalized Weakness, asked for PT, as per Neurology specialist, the patient is wheelchair bound he is DNR and with diagnosis of Multiple Sclerosis thinking in Plasma exchange will follow Neurology specialist further recommendations 3. Anemia Microcytosis suggestive of chronic anemia, Hemoglobin 9.3. blood transfusion as needed for Hemoglobin less than 7 4. Leukocytosis likely secondary to Steroid use. 5. Multiple Sclerosis as per Neurology for possible Plasma exchange 6. DM II following Hemoglobin A1C, continue sliding scale, hold Metformin and Glipizide, Sliding scale to Medium dose. Hemoglobin 8.3 7. Hyperlipidemia to continue Statins 8. Hypertension to continue Losartan and Propranolol. 9. Hypokalemia replaced DVT prophylaxis: hold chemical anticoagulation for possible bleed, b/l SCDs Code Status FULL Discussed Condition With Patient and Nurse Miss Gomez. Discharge Planning Once cleared by Specialists Endy Rocha MD Dec 18, 2017 08:44
[2017-12-18] MEDS ORDERED: OXYBUTYNIN CHLORIDE 5 MG TAB PO SCH (09:00)
[2017-12-18] MEDS ORDERED: INSULIN DETEMIR 100 UNITS/ML VIAL SQ ONE (09:00)
[2017-12-18] MEDS ORDERED: MAGNESIUM OXIDE 400 MG PO SCH (09:00)
[2017-12-18] MEDS ORDERED: metFORMIN HCL 500 MG TAB PO SCH (09:00)
[2017-12-18] MEDS ORDERED: LOSARTAN 50 MG TAB PO SCH (09:00)
[2017-12-18] MEDS ORDERED: POTASSIUM CHLORIDE 20 MEQ CONTROLLED RELEASE TAB PO ONE (10:00)
[2017-12-18 10:15] VITALS: O2SAT 96
--- NOTE | 2017-12-18 10:33 | MB ---
cc: Ishan Abraham MD DATE: 12/18/2017 HISTORY OF PRESENT ILLNESS: The patient is a 57-year-old right-handed man with hypertension, hypercholesterolemia and about 7 years of MS. He sees Dr. Shafer. He has been on Tecfidera. Dr. Shafer last saw him on 12/05/2017 here. He has a history of secondary progressive MS mainly ataxia. Had some history of urinary incontinence, increased right leg weakness as well. He was very anemic. He was found to be about a 4/5 weak in the right leg proximally and distally, normal in the left leg. He gave Solu-Medrol high dose. He gave the steroids for several days, then he gave an oral steroid. He thought he was still very weak, but had some slight improvement. I am now asked to see him for MS. The patient was readmitted on the having some dark diarrhea. MEDICATIONS AT HOME: Tecfidera 240 b.i.d., losartan, Propranolol, Ditropan, metformin, glipizide, magnesium, vitamin D, atorvastatin. ALLERGIES: HE HAS NO KNOWN DRUG ALLERGIES. PAST MEDICAL HISTORY: He notes hypertension, hypercholesterolemia and the MS. REVIEW OF SYSTEMS: He denied any diabetes, OR, stent, angioplasty, AFib, Coumadin, renal, hepatic or pulmonary disease, thyroid disease, lupus, ulcer, cancer, seizure or stroke. He denied any headache. SOCIAL HISTORY: Not a smoker or drinker, lives with his . FAMILY HISTORY: Negative for cancer, seizure. Positive for stroke in his mother. EKG: Shows sinus rhythm. He was still anemic. His sugar was 400, though he denied any diabetes. Evidently, he has continued to get weaker in that right leg and thus brought him to the hospital and admitted along with the dark stools. PHYSICAL EXAMINATION: VITAL SIGNS: He is afebrile, 74, 17, 118/73. NECK: No carotid bruits. HEART: Regular rhythm. I did not detect a murmur. NEUROLOGIC: Pupils are equal. Visual am are full. Extraocular movements intact without nystagmus. Face is symmetric with normal sensation. Tongue was midline. There is no drift. He has normal strength in bilateral triceps and finger extensors. The left iliopsoas was a 5-/5, tibialis anterior 5/5. The right iliopsoas is about a 3/5 and tibialis anterior a 2/5. Toes were downgoing bilaterally. DTRs are trace throughout. Pinprick was intact in all 4 extremities and face. LABORATORY DATA: His CBC shows hematocrit of 30. His hemoglobin is 9.3, platelet count is normal. Sedimentation rate was normal back in 2005. ISH, RPR, Lyme titer, FTA-ABS all been negative. His UA is negative here except for glucose. Basic metabolic profile shows a glucose of 273. LFTs were normal. Troponins negative. B12 is 273, LDL cholesterol in 2001 was elevated. Coags are normal. Sats are normal, blood gasses in the past. He had a CAT scan of his brain on 12/05/2017 and was negative. ASSESSMENT AND PLAN: MS with an exacerbation, although Dr. Shafer has noticed it more of a secondary progressive. Certainly, this looks like an exacerbation with increased right lower extremity weakness evidently worse than it was before. We could try IV plasma exchange. In addition, I will check an MRI of his brain and his spine. He has significant ataxia that appears to be his main problem, but now the right lower extremity is a lot weaker than it was before. He tells me he is mainly in a wheelchair. He also has some cognitive deficiencies with some memory problems. Certainly his sugars need to be treated. He is not currently aware that he may have diabetes. MD MIYA Phillips/WILLIAN , 09:52 AM , 10:32 AM
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
[2017-12-18 11:40] VITALS: BP 122/66; PULSE 68; RESP 18; TEMP 98; O2SAT 99
[2017-12-18] MEDS: MAGNESIUM CITRATE SOLN 300 ML BTL PO SCH ×2 (11:40→18:19)
[2017-12-18] MEDS: INSULIN ASPART 1,000 UNITS/10 ML VIAL SQ SCH ×2 (12:21→17:17)
[2017-12-18 13:23] LABS: HEMOGLOBIN A1C 8.3 % (4.3-6.0)
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
[2017-12-18] MEDS ORDERED: IRON SUCROSE INJ 100 MG in SODIUM CHLORIDE 0.9% INJ 100 ML IV ONE (14:00)
[2017-12-18] MEDS ORDERED: diphenhydrAMINE HCL 50 MG/ML VIAL IV PUSH PRN (15:30)
[2017-12-18] MEDS ORDERED: HEPARIN SODIUM - 1000 UNITS/ML 10 ML VIAL IV FLUSH PRN (15:30)
[2017-12-18] MEDS ORDERED: GADODIAMIDE PF 287 MG/ML 20 ML VIAL (for RAD MRI) IVCONTRAST ONE (16:08)
--- NOTE | 2017-12-18 16:28 | RADRPT ---
EXAM DATE/TIME: 12/18/2017 15:16 [facility] COMPARISON: No previous studies available for comparison. INDICATIONS : Inability to ambulate. CONTRAST: 20 cc Omniscan (gadodiamide) IV MEDICAL HISTORY : Multiple sclerosis. Hypertension. Diabetes mellitus type 2. Anemia. SURGICAL HISTORY : Inguinal hernia repair. ENCOUNTER: Initial ACUITY: 1 day PAIN SCORE: 0/10 LOCATION: [facility] TECHNIQUE: Multiplanar multisequence MRI of the thoracic spine was performed. FINDINGS: VERTEBRA: 2.1 cm hemangioma seen of T9. There is mild loss of height of the superior endplates of T3, T12 and L 1 that appears chronic. No acute fracture is demonstrated. There is no retropulsion or fracture-assoc iated foraminal or spinal stenosis. ALIGNMENT: Normal. CORD: Normal position and configuration. POST CONTRAST: No abnormal areas of contrast enhancement seen. There is mild bilateral costovertebral and facet osteoarthritis at essentially all levels. T1-T2: Normal. T2-T3: The thecal sac has a normal diameter. No evidence of disc bulge or protrusion. T3-T4: The thecal sac has a normal diameter. No evidence of disc bulge or protrusion. T4-T5: The thecal sac has a normal diameter. No evidence of disc bulge or protrusion. T5-T6: The thecal sac has a normal diameter. No evidence of disc bulge or protrusion. T6-T7: The thecal sac has a normal diameter. No evidence of disc bulge or protrusion. T7-T8: The thecal sac has a normal diameter. No evidence of disc bulge or protrusion. T8-T9: The thecal sac has a normal diameter. No evidence of disc bulge or protrusion. T9-T10: The thecal sac has a normal diameter. No evidence of disc bulge or protrusion. T10-T11: The thecal sac has a normal diameter. No evidence of disc bulge or protrusion. T11-T12: The thecal sac has a normal diameter. No evidence of disc bulge or protrusion. T12-L1: The thecal sac has a normal diameter. No evidence of disc bulge or protrusion. CONCLUSION: 1. The thoracic cord has normal signal and morphology throughout. 2. Mild, nonacute appearing superior endplate compression fractures of T3, T12 and L1. 3. No foraminal or spinal stenosis. 4. T9 vertebral body hemangioma. Daren Farr MD on December 18, 2017 at 16:22 Board Certified Radiologist. This report was verified electronically.
--- NOTE | 2017-12-18 16:44 | RADRPT ---
EXAM DATE/TIME: 12/18/2017 15:16 [facility] COMPARISON: No previous studies available for comparison. INDICATIONS : Inability to ambulate. CONTRAST: 20 cc Omniscan (gadodiamide) IV MEDICAL HISTORY : Multiple sclerosis. Hypertension. Diabetes mellitus type 2. Anemia. SURGICAL HISTORY : Inguinal hernia repair. ENCOUNTER: Initial ACUITY: 1 day PAIN SCORE: 0/10 LOCATION: Paraspinal TECHNIQUE: Multiplanar, multisequence MRI examination of the cervical spine was performed. FINDINGS: VERTEBRAE: Normal vertebral body height. Homogeneous marrow signal. ALIGNMENT: No evidence of subluxation. CORD: Faint T2 signal abnormality seen within the central portions of the thoracic cord from the medulla to C5/C6. There is no associated abnormal enhancement. POST FOSSA: The cerebellar tonsils are normal in position. POST-CONTRAST: No abnormal areas of enhancement are seen. Incidentally seen 1.9 cm sebaceous cyst posterior to C5. C2-C3: The disc is desiccated but otherwise normal. No foraminal or spinal stenosis. C3-C4: The disc is desiccated but otherwise normal. No foraminal or spinal stenosis. C4-C5: The disc is desiccated but otherwise normal. There is mild bilateral uncovertebral and facet osteoart hritis. Slight foraminal encroachment, mostly on the right. C5-C6: The disc is desiccated and has slight loss of height. There is bulging of the disc annulus and mild r ight, mild to moderate left uncovertebral and facet osteoarthritis. There is mild right and mild-to-m oderate left foraminal stenosis. No significant spinal stenosis. C6-C7: Mild annular bulging and mild bilateral uncovertebral and facet osteoarthritis. No associated foramin al or spinal stenosis. C7-T1: Normal appearing disc. Very mild bilateral facet osteoarthritis. No foraminal or spinal stenosis. CONCLUSION: 1. Faint, chronic appearing T2 signal abnormality throughout most of the central cervical cord. No ab normal enhancement or other evidence of an active/acute lesion. 2. Mild degenerative changes as above. There is no foraminal or spinal stenosis. Daren Farr MD on December 18, 2017 at 16:38 Board Certified Radiologist. This report was verified electronically.
--- NOTE | 2017-12-18 17:03 | RADRPT ---
EXAM DATE/TIME: 12/18/2017 15:16 [facility] COMPARISON: No previous studies available for comparison. INDICATIONS : Inability to ambulate. CONTRAST: 20 cc Omniscan (gadodiamide) IV MEDICAL HISTORY : Hypertension. Diabetes mellitus type 2. Multiple sclerosis. Anemia. SURGICAL HISTORY : Inguinal hernia repair. ENCOUNTER: Initial ACUITY: 1 day PAIN SCORE: 0/10 LOCATION: cranial TECHNIQUE: Multiplanar, multisequence MRI of the brain was performed both prior to and following the administrat ion of paramagnetic contrast. FINDINGS: CEREBRUM: The ventricles are normal for age. No evidence of midline shift, mass lesion, hemorrhage or acute in farction. No extraaxial fluid collections are seen. The pituitary gland and suprasellar cistern are normal in configuration. WHITE MATTER: Moderate signal abnormalities are seen in the white matter. POSTERIOR FOSSA: The cerebellum and brainstem are intact. The 4th ventricle is midline. The cerebellopontine angle is unremarkable. The cerebellar tonsils are normal in position. DIFFUSION IMAGING: No focal areas of restricted diffusion are seen. No evidence of acute infarction. EXTRACRANIAL: The visualized portions of the orbits and paranasal sinuses are unremarkable. POST-CONTRAST: No abnormal areas of parenchymal or dural enhancement. No evidence of blood-brain barrier breakdown. CONCLUSION: Moderate signal abnormality in the periventricular white matter with involvement of the corpus callos um in a pattern characteristic of multiple sclerosis. No recent infarct. No abnormal enhancement. Gilbert Turcios MD on December 18, 2017 at 16:48 Board Certified Radiologist. This report was verified electronically.
[2017-12-18 20:00] VITALS: BP 124/72; PULSE 70; RESP 17; TEMP 97.7; O2SAT 100
[2017-12-18] MEDS: ASCORBIC ACID 500 MG TAB PO SCH (21:33)
[2017-12-18] MEDS: ATORVASTATIN 40 MG PO SCH (21:35)
[2017-12-19] VITALS: BP 126/66; PULSE 65; RESP 16; TEMP 97.9; O2SAT 96
[2017-12-19 04:00] VITALS: BP 125/97; PULSE 69; RESP 16; TEMP 97.8; O2SAT 96
[2017-12-19] MEDS: PROPRANOLOL 20 MG PO SCH ×3 (05:23→17:58)
[2017-12-19] MEDS: MAGNESIUM CITRATE SOLN 300 ML BTL PO SCH (05:24)
[2017-12-19 07:20] VITALS: BP 114/67; PULSE 80; RESP 18; TEMP 97.5; O2SAT 96
--- NOTE | 2017-12-19 07:50 | HHI.PR ---
Objective Vital Signs Date Time Temp Pulse Resp B/P (MAP) Pulse Ox O2 Delivery O2 Flow Rate FiO2 12/19/17 07:38 Room Air 12/19/17 07:20 97.5 80 18 114/67 (83) 96 12/19/17 04:00 97.8 69 16 125/97 (106) 96 12/19/17 00:00 97.9 65 16 126/66 (86) 96 12/18/17 20:00 97.7 70 17 124/72 (89) 100 12/18/17 19:35 21 12/18/17 11:40 98.0 68 18 122/66 (84) 99 12/18/17 10:15 96 12/18/17 08:00 98.2 74 17 118/73 (88) 97 I/O 12/18/17 12/18/17 12/18/17 12/19/17 12/19/17 12/19/17 07:00 15:00 23:00 07:00 15:00 23:00 Intake Total 965 ml 450 ml Output Total 250 ml Balance 715 ml 450 ml Intake Oral 360 ml 450 ml IV Total 605 ml Output Urine Total 250 ml # Voids 3 # Bowel Movements 0 0 Result Diagram: 12/18/17 0515 12/18/17 0515 Procedures None Objective Remarks r ip 4+-5- today r foot drop 3- some inc tone there Assessment and Plan Assessment and Plan imp pex egd some steroids with pex i reviewed films brain chronic cw ms c5 faint change in cord t spine neg DM i think med team on case Ishan Abraham MD Dec 19, 2017 07:50
[2017-12-19] MEDS: INSULIN ASPART 1,000 UNITS/10 ML VIAL SQ SCH ×3 (08:00→17:00)
--- NOTE | 2017-12-19 08:42 | HHI.PR ---
Subjective Remarks Pt seen and examined this morning. AFVSS no acute events overnight. Reports he is feeling well. He states he cannot tell if his weakness is better or worse since he's been laying in bed. Denies any current pain in his legs. Denies CP, SOB, abdominal pain, N/V, dizziness, or headache. NPO for EGD/colonoscopy this morning. Objective Vital Signs Date Time Temp Pulse Resp B/P (MAP) Pulse Ox O2 Delivery O2 Flow Rate FiO2 12/19/17 07:38 Room Air 12/19/17 07:20 97.5 80 18 114/67 (83) 96 12/19/17 04:00 97.8 69 16 125/97 (106) 96 12/19/17 00:00 97.9 65 16 126/66 (86) 96 12/18/17 20:00 97.7 70 17 124/72 (89) 100 12/18/17 19:35 21 12/18/17 11:40 98.0 68 18 122/66 (84) 99 12/18/17 10:15 96 I/O 12/18/17 12/18/17 12/18/17 12/19/17 12/19/17 12/19/17 07:00 15:00 23:00 07:00 15:00 23:00 Intake Total 965 ml 450 ml 1500 ml Output Total 250 ml 5 ml Balance 715 ml 450 ml 1495 ml Intake Oral 360 ml 450 ml 1500 ml IV Total 605 ml Output Urine Total 250 ml 5 ml # Voids 3 # Bowel Movements 0 0 12 Result Diagram: 12/18/17 0515 12/18/17 0515 Imaging Thoracic Spine MRI 12/18/17 0950 Signed Impressions: Service Date/Time: Monday, December 18, 2017 15:16 - CONCLUSION: 1. The thoracic cord has normal signal and morphology throughout. 2. Mild, nonacute appearing superior endplate compression fractures of T3, T12 and L1. 3. No foraminal or spinal stenosis. 4. T9 vertebral body hemangioma. Daren Farr MD Cervical Spine MRI 12/18/17 0914 Signed Impressions: Service Date/Time: Monday, December 18, 2017 15:16 - CONCLUSION: 1. Faint, chronic appearing T2 signal abnormality throughout most of the central cervical cord. No abnormal enhancement or other evidence of an active/acute lesion. 2. Mild degenerative changes as above. There is no foraminal or spinal stenosis. Daren Farr MD Brain MRI 12/18/17 0950 Signed Impressions: Service Date/Time: Monday, December 18, 2017 15:16 - CONCLUSION: Moderate signal abnormality in the periventricular white matter with involvement of the corpus callosum in a pattern characteristic of multiple sclerosis. No recent infarct. No abnormal enhancement. Gilbert Turcios MD Chest X-Ray 12/17/17 1519 Signed Impressions: Service Date/Time: Sunday, December 17, 2017 15:23 - CONCLUSION: Cardiomegaly. Daren Escamilla MD Objective Remarks GENERAL: WN, WD male sitting up comfortably in bed in NAD. SKIN: Warm and dry. HEENT: Pupils equal and round. MMM. NECK: Supple no tender LAD or JVD. HEART: RRR with 2/6 DINAH heard best over RSB. LUNGS: CTAB without wheezes or crackles. ABDOMEN: Soft, NT, ND. EXTREMITIES: No LE edema or calf tenderness. RLE weaker than LLE especially with dorsiflexion of the foot. NEURO: Awake and alert. A/P Problem List: (1) Multiple sclerosis exacerbation ICD Code: G35 - Multiple sclerosis Status: Acute (2) GI bleed ICD Code: K92.2 - Gastrointestinal hemorrhage, unspecified Status: Acute (3) Anemia ICD Code: D64.9 - Anemia, unspecified Status: Acute (4) Impaired mobility and activities of daily living ICD Code: Z74.09 - Other reduced mobility Status: Chronic (5) DM (diabetes mellitus) ICD Code: E11.9 - Type 2 diabetes mellitus without complications Status: Chronic (6) Hypertension ICD Code: I10 - Essential (primary) hypertension Status: Chronic (7) Hyperlipidemia ICD Code: E78.5 - Hyperlipidemia, unspecified Status: Chronic Assessment and Plan 57 YOWM with MS, DM, and HLD presented with increasing lower extremity weakness and dependence on his who feels she can no longer provide for him. He also had episode of melena and was found to have a positive Hemoccult in the ED with associated anemia. 1. Melena - + bedside Hemoccult performed in the ED - Hemoglobin remains stable - Hemodynamically stable - Possible gastritis vs. ulcer secondary to steroid use - Protonix IV BID - GI consulted and planning for EGD/colonoscopy this AM 2. MS exacerbation - Pt recently completed a course of IV steroids within the last couple weeks - Neuro consulted, appreciate reccs - MRI brain with chronic enhancement consistent with MS - T spine negative and cervical spine with faint enhancement - Heme was consulted for plasmapheresis which is tentatively planned for tomorrow - IR consulted for Vas-Cath placement 3. Generalized weakness and debility - PT consulted - Case management consulted for d/c needs 4. Anemia - Microcytosis suggestive of chronic anemia with a possible acute component given melena - Iron studies c/w iron deficiency - Transfuse if Hb <7 - EGD/colonoscopy today 5. DM - Pt's states he has never formally been diagnosed with DM yet he is on metformin and glipizide - A1c elevated at 8.3 - Expect difficulty controlling blood sugars with steroids - Novolog 5 units TID AC and SSI per protocol - Accuchecks improving, can always add a long-acting insulin if needed 6. HLD - Continue home statin 7. HTN - BPs stable - Continue home Losartan and propranolol DVT prophylaxis: hold chemical anticoagulation for possible bleed, b/l SCDs Marti Petty MD Dec 19, 2017 08:42
[2017-12-19] MEDS: PANTOPRAZOLE SODIUM 40 MG VIAL IV PUSH SCH ×2 (08:49→20:48)
[2017-12-19] MEDS: INSULIN ASPART SUPPLEMENTAL SCALE SQ SCH ×4 (08:49→20:58)
[2017-12-19] MEDS ORDERED: SODIUM CHLOR 0.9% 1000 ML IV ONE (09:00)
[2017-12-19] MEDS: ANTICOAGULANT CITRATE DEXTROSE SOLN-A 1L OTHER SCH (09:00)
[2017-12-19] MEDS ORDERED: CALCIUM GLUCONATE INJ 1 GM in SODIUM CHLORIDE 0.9% INJ 50 ML IV SCH (09:00)
[2017-12-19] MEDS: LOSARTAN POTASSIUM 50 MG PO SCH (09:00)
[2017-12-19] MEDS: FAMOTIDINE 20 MG/2 ML VIAL IV PUSH SCH (09:00)
[2017-12-19] MEDS: DIMETHYL FUMARATE 240 MG PO SCH ×2 (09:00→20:48)
[2017-12-19] MEDS ORDERED: CALCIUM CARBONATE 1.25 GM (CA 500 MG) TAB PO PRN (09:00)
[2017-12-19] MEDS: ALBUMIN 5% INJ 3,500 ML IV SCH (09:00)
[2017-12-19] MEDS: OXYBUTYNIN 5 MG PO SCH ×2 (09:00→20:49)
[2017-12-19] MEDS: CHOLECALCIFEROL (VIT D3) 1000 UNIT TAB PO SCH (09:00)
[2017-12-19] MEDS: MAGNESIUM OXIDE 400 MG PO SCH (09:00)
--- NOTE | 2017-12-19 09:37 | EKG ---
Date Performed: 12/17/2017 Time Performed: 15:31:02 PTAGE: 57 years EKG: Sinus rhythm NONSPECIFIC T-WAVE ABNORMALITY BORDERLINE ECG PREVIOUS TRACING 09/10/15 Since previous tracing, no significant change. DOCTOR: Zeke Talley Interpretating Date/Time 12/19/2017 09:37:02
[2017-12-19] MEDS: SODIUM CHLOR 0.45% 1000 ML INJ 1,000 ML IV SCH ×2 (10:23→23:43)
[2017-12-19] MEDS ORDERED: LIDOCAINE HCL 1% PF 5 ML SYRINGE OTHER ONE (12:00)
[2017-12-19] MEDS ORDERED: PROPOFOL 200 MG/20 ML AMP IV ONE (12:00)
[2017-12-19] MEDS ORDERED: DO NOT ADM ANY ANTICOAGULANT DRUGS PRN (12:10)
--- NOTE | 2017-12-19 12:17 | PD.PROCEDR ---
GI Procedure PROCEDURE PERFORMED Upper endoscopy with biopsy, colonoscopy with biopsy and snare polypectomy INDICATION FOR PROCEDURE Anemia PROCEDURE: The procedure, risks and benefits were discussed with Mr. Wilkes and informed consent was obtained. Anesthesia sedated him with Diprivan. He was placed in the left lateral decubitus position. EGD: The Pentax videoscope was introduced through the oropharynx and advanced to the second portion of the duodenum under direct visualization. Retroflexion was performed in the stomach. Biopsy from the distal esophagus, biopsy from the antrum Colonoscopy: The Pentax videoscope was introduced through the rectum and advanced to junction of cecum and ascending colon. Retroflexion was performed in the rectum. Colonic prep was fair Polyp removed in the transverse colon, biopsy from the mass in the junction of the cecum and ascending colon ESTIMATED BLOOD LOSS: None SPECIMENS REMOVED: Distal esophagus, antrum, colon mass in the ascending colon COMPLICATIONS: None IMPRESSION: Significant esophagitis grade D with small ulcer in the EG junction biopsy was done Gastritis biopsy was done to rule out H. pylori Duodenal ulcer in the bulb Large circumferential mass in the junction of the cecum to the ascending colon consistent with cancer biopsy was done Polyp in the transverse colon removed by snare Internal hemorrhoids No active bleeding PLAN: Await biopsy results CEA CT of the abdomen and pelvis with IV and by mouth contrast No NSAIDs Protonix 40 mg daily Colonoscopy in 1 year Surgical consult for colon resection Heidi Harding MD Dec 19, 2017 12:17
--- NOTE | 2017-12-19 12:19 | HHI.GIFU ---
Subjective Remarks Patient laying in bed comfortably, tolerated prep, no sign of active bleeding Objective Vitals I&O Vital Signs Date Time Temp Pulse Resp B/P (MAP) Pulse Ox O2 Delivery O2 Flow Rate FiO2 12/19/17 07:38 Room Air 12/19/17 07:20 97.5 80 18 114/67 (83) 96 12/19/17 04:00 97.8 69 16 125/97 (106) 96 12/19/17 00:00 97.9 65 16 126/66 (86) 96 12/18/17 20:00 97.7 70 17 124/72 (89) 100 12/18/17 19:35 21 I/O 12/18/17 12/18/17 12/18/17 12/19/17 12/19/17 12/19/17 07:00 15:00 23:00 07:00 15:00 23:00 Intake Total 965 ml 450 ml 1500 ml 300 ml Output Total 250 ml 5 ml Balance 715 ml 450 ml 1495 ml 300 ml Intake Oral 360 ml 450 ml 1500 ml IV Total 605 ml Other 300 ml Output Urine Total 250 ml 5 ml # Voids 3 # Bowel Movements 0 0 12 Physical Exam HEENT: Pupils round and reactive to light; normocephalic; atraumatic; no jaundice. Throat is clear. NECK: Neck is supple, no JVD, no lymphadenopathy. CHEST: Chest is clear to auscultation and percussion. CARDIAC: Regular rate and rhythm with no murmur gallop or rubs. ABDOMEN: Soft, nondistended, nontender; no hepatosplenomegaly; bowel sounds are present in all four quadrants. EXTREMITIES: No clubbing, cyanosis, or edema. SKIN: Normal; no rash; no jaundice. FISHER TROLL LINE: No focal deficits; alert and oriented times three. Assessment and Plan Assessment: (1) GI bleed ICD Codes: K92.2 - Gastrointestinal hemorrhage, unspecified Status: Acute (2) Anemia ICD Codes: D64.9 - Anemia, unspecified Status: Acute Plan Weakness and malaise approximately 2 weeks worsened to the point that he is total care for his . Hemoccult-positive this admission. Last hospitalization noted hemoglobin at 7 transfused 1 unit/, negative Hemoccult.. History of NSAID use. Current hemoglobin 9.3, labs show iron deficiency anemia. She denies any dizziness, no nausea, vomiting, diarrhea, or constipation. No history of EGD or colonoscopy in the past MS diagnosed 7 years ago, according to the record patient is no code DO NOT RESUSCITATE secondary to this diagnosis. 12/19/2017 patient is 57-year-old presented with anemia, colonoscopy and endoscopy was done IMPRESSION: Significant esophagitis grade D with small ulcer in the EG junction biopsy was done Gastritis biopsy was done to rule out H. pylori Duodenal ulcer in the bulb Large circumferential mass in the junction of the cecum to the ascending colon consistent with cancer biopsy was done Polyp in the transverse colon removed by snare Internal hemorrhoids No active bleeding PLAN: Await biopsy results CEA CT of the abdomen and pelvis with IV and by mouth contrast No NSAIDs Protonix 40 mg daily Colonoscopy in 1 year Surgical consult for colon resection Heidi Harding MD Dec 19, 2017 12:19
[2017-12-19] MEDS ORDERED: DIATRIZOATE MEGLUM/DIATRIZOATE SOD 9 ML CUP PO ONE (13:15)
--- NOTE | 2017-12-19 14:12 | PD.RAD ---
Post Procedure Progress Note Pre Procedure Diagnosis: (1) Multiple sclerosis exacerbation Post Procedure Diagnosis: (1) Multiple sclerosis exacerbation Procedure Date: Dec 19, 2017 Supervising Radiologist: Natanael Pino Proceduralist/Assist: Damari Heller RT(R), RT Bryan(R)(CV) Anesthesia: Local Plan of Activity Patient to Unit: Nursing Unit Patient Condition: Good See PACS Report for procedural detail/treatment Natanael Pino MD Dec 19, 2017 14:12
--- NOTE | 2017-12-19 14:19 | PD.ONC.PN ---
Subjective Subjective Remarks Afebrile overnight. patient on stretcher waiting to go downstairs for vas-cath placement. he complains of continued weakness in his legs and persistent dysphagia. otherwise without complaints. states he has had plasma exchange previously for similar symptoms, and the symptoms improved after just one treatment. Objective Data Date Time Temp Pulse Resp B/P (MAP) Pulse Ox O2 Delivery O2 Flow Rate FiO2 12/19/17 12:40 68 15 99 Room Air 12/19/17 12:30 97.8 69 15 111/66 (81) 99 Room Air 12/19/17 12:21 21 12/19/17 12:15 75 15 118/72 (87) 98 Room Air 12/19/17 12:10 97.8 74 14 121/73 (89) 98 Room Air 12/19/17 07:38 Room Air 12/19/17 07:20 97.5 80 18 114/67 (83) 96 12/19/17 04:00 97.8 69 16 125/97 (106) 96 12/19/17 00:00 97.9 65 16 126/66 (86) 96 12/18/17 20:00 97.7 70 17 124/72 (89) 100 12/18/17 19:35 21 12/19/17 12/19/17 12/19/17 07:00 15:00 23:00 Intake Total 1500 ml 300 ml Output Total 5 ml Balance 1495 ml 300 ml Result Diagram: 12/18/17 0515 12/18/17 0515 Administered Medications Medications (Trade) Dose Ordered Sig/Karina Route PRN Reason Start Time Stop Time Status Last Admin Dose Admin Sodium Chloride 1,000 ml @ 75 mls/hr [id number] IV 12/17/17 18:23 12/18/17 08:14 Sodium Chloride (NS Flush) 2 ml BID IV FLUSH 12/17/17 21:00 12/18/17 21:00 Pantoprazole Sodium (Protonix Inj) 40 mg Q12H IV PUSH 12/17/17 20:00 12/19/17 08:49 Cholecalciferol (Vitamin D3) 500 units DAILY PO 12/18/17 09:00 12/18/17 08:24 Ascorbic Acid (Vitamin C) 500 mg HS PO 12/17/17 21:00 12/18/17 21:33 Patient Own Medication PT OWN MED:(Dimethyl Fumar... BID PO 12/17/17 21:00 12/18/17 21:35 Patient Own Medication PT OWN MED: OXYBUTY... HS PO 12/17/17 21:00 12/18/17 21:35 Patient Own Medication PT OWN MED: OXYBUTY... DAILY PO 12/18/17 09:00 12/18/17 08:21 Patient Own Medication PT OWN MED: PROPRANO... BID@0600,1200 PO 12/18/17 06:00 12/19/17 05:23 Patient Own Medication PT OWN MED: PROPRANO... DAILY@1800 PO 12/18/17 18:00 12/18/17 18:00 Patient Own Medication PT OWN MED: LOSAR... DAILY PO 12/18/17 09:00 12/18/17 08:23 Patient Own Medication PT OWN MED: MAGNES... DAILY PO 12/18/17 09:00 12/18/17 08:17 Patient Own Medication PT OWN MED: ATORVASTATIN 40 MG PO HS HS PO 12/17/17 22:00 12/18/17 21:35 Insulin Aspart (NovoLOG SUPPLEMENTAL SCALE) 1 ACHS SLIDING SCALE SQ 12/18/17 12:00 12/19/17 08:49 Insulin Aspart (NovoLOG INJ) 5 units TIDAC SQ 12/18/17 12:00 12/18/17 17:17 Objective Remarks GENERAL: Middle aged male, lying on stretcher in [facility]. SKIN: Warm and dry. HEAD: Normocephalic. EYES: No injection or drainage. NECK: Supple, trachea midline. CARDIOVASCULAR: Regular rate and rhythm RESPIRATORY: Breath sounds equal bilaterally. No accessory muscle use. GASTROINTESTINAL: Abdomen soft, non-tender, nondistended. EXTREMITIES: No cyanosis NEUROLOGICAL: awake and alert. normal speech. Assessment/Plan Problem List: (1) Colonic mass ICD Codes: K63.9 - Disease of intestine, unspecified Plan: --colon mass seen during colonoscopy on 12/19, biopsy pathology is pending. ==Large circumferential mass in the junction of the cecum to the ascending colon consistent with cancer biopsy was done (2) Multiple sclerosis exacerbation ICD Codes: G35 - Multiple sclerosis Status: Acute Plan: --hematology consulted to coordinate plasma exchange. will place on hold until decision is made in terms of colectomy, now with new colon mass. Assessment 57y/o male with MS exacerbation. Hematology consulted for plasma exchange. h/o Hyperglycemia/borderline diabetes. Hypertension. Hyperlipidemia. Iron deficiency anemia. Suspected gastrointestinal bleed. Plan 1. monitor CBC, coags 2. continue supportive care 3. await general surgery consult. Hamida Cueva Dec 19, 2017 14:19
--- NOTE | 2017-12-19 14:57 | RADRPT ---
EXAM DATE/TIME: 12/19/2017 13:50 [place] [facility] September 10, 2015, 15:08. INDICATIONS : Patient with hx of MS. Inneed of phoresis. MEDICAL HISTORY : 1. HTN 2. DM 3. MS 4. hyperlipidemia SURGICAL HISTORY : 1. Hernia repair ENCOUNTER: Initial ACUITY: 3 days PAIN SCORE: 0/10 FLUORO TIME: 0.2 minutes IMAGE SERIES: 1 ACCESS: Right internal jugular vein DEVICE(S): 1.) 14 Swazi dual lumen 15 cm Schon catheter PROCEDURE : 1. Ultrasound guided venipuncture. 2. Fluoroscopic guidance. 3. Central line placement. The risks, benefits and alternatives to the procedure were explained and verbal and written consent w as obtained. The site was prepped in sterile fashion. Full sterile technique was used, including ca p, mask, sterile gloves and gown and a large sterile sheet. Hand hygiene and 2% chlorhexidine prep w as utilized per protocol for cutaneous antisepsis with appropriate dry time for site. Sterile gel an d sterile probe cover were utilized for ultrasound guidance. The skin and subcutaneous tissues were infiltrated with local anesthetic solution. A suitable site a melissa the vein was selected with ultrasound and fluoroscopic guidance. A small incision was made. Th e vein was accessed under direct ultrasound visualization using the micropuncture technique. The henri ropuncture set was exchanged for a 0.035 wire. The tract was dilated. The catheter was advanced int o position under direct fluoroscopic visualization. The catheter was fixed in place with suture and a sterile dressing was applied. The patient tolerated the procedure well and there were no complications. CONCLUSION: Uncomplicated line placement as above. Natanael Pino MD on December 19, 2017 at 14:54 Board Certified Radiologist. This report was verified electronically.
[2017-12-19] MEDS: SODIUM CHLOR 0.9% IV SCH (15:00)
[2017-12-19] MEDS: CALCIUM GLUCONATE IV SCH (15:00)
[2017-12-19 15:34] VITALS: BP 151/75; PULSE 85; RESP 18; TEMP 97.8; O2SAT 100
--- NOTE | 2017-12-19 16:20 | PD.CONS ---
cc: Wu Lamb MD [facility] Service General Surgery Consult Requested By Dr. Egan Reason for Consult s/p colonoscopy ---large circumferential mass in the junction of the cecum to the ascending colon Primary Care Physician Cinthia Meade MD History of Present Illness This is a 57 year old male with a past medical history of multiple sclerosis and dyslipidemia. He came to the ED with complaints of increased weakness, confusion and dysphagia. Of note, the patient was recently admitted to [facility] with anemia. He was transfused and sent home. He has never had an EGD or colonoscopy. The patient's hemoglobin on admission was 9.3. He does report dark stools at home. A colonoscopy was done today where a large circumferential mass in the junction of the cecum to the ascending colon was biopsied and the results are currently pending. The patient is scheduled to go for a CT of the abdomen/pelvis today. Of note, the patient has a VasCath placed today in preparation of plasma exchange. A General Surgery consultation has been requested. Review of Systems Constitutional: DENIES: Fatigue, Weight loss, Chills, Change in appetite Endocrine: DENIES: Polydipsia, Polyuria, Polyphagia Eyes: DENIES: Diplopia Ears, nose, mouth, throat: DENIES: Hearing loss Respiratory: DENIES: Apneas Cardiovascular: DENIES: Chest pain Gastrointestinal: COMPLAINS OF: Black stools, DENIES: Abdominal pain, Nausea, Vomiting Genitourinary: DENIES: Urinary frequency Musculoskeletal: DENIES: Joint pain Integumentary: DENIES: Abnormal pigmentation Hematologic/lymphatic: DENIES: Bruising Immunologic/allergic: DENIES: Eczema Neurologic: COMPLAINS OF: Localized weakness, DENIES: Headache Psychiatric: DENIES: Mood changes, Depression, Hallucinations Past Family Social History Past Medical History Multiple sclerosis Dyslipidemia Past Surgical History Umbilical hernia repair Reported Medications Atorvastatin Propranolol Losartan Magnesium oxide Metformin Glipizide Ditropan Vitamin C Vitamin D Tecfidera Calcium Allergies: Coded Allergies: No Known Allergies (Verified Allergy, Unknown, 12/17/17) Active Ordered Medications Current Medications Medications (Trade) Dose Ordered Sig/Karina Route Start Time Stop Time Status Last Admin (D50w (Vial) Inj) 50 ml UNSCH PRN IV PUSH 12/17/17 18:30 (Glucagon Inj) 1 mg UNSCH PRN OTHER 12/17/17 18:30 Sodium Chloride 1,000 ml @ 75 mls/hr [id number] IV 12/17/17 18:23 12/18/17 08:14 (NS Flush) 2 ml UNSCH PRN IV FLUSH 12/17/17 18:30 (NS Flush) 2 ml BID IV FLUSH 12/17/17 21:00 12/18/17 21:00 (Tylenol) 650 mg Q4H PRN PO 12/17/17 18:30 (Zofran Inj) 4 mg Q6H PRN IVP 12/17/17 18:30 (Narcan Inj) 0.4 mg UNSCH PRN IV PUSH 12/17/17 18:30 (Milk Of Magnesia Liq) 30 ml Q12H PRN PO 12/17/17 18:30 (Senokot) 17.2 mg Q12H PRN PO 12/17/17 18:30 (Dulcolax Supp) 10 mg DAILY PRN RECTAL 12/17/17 18:30 (Lactulose Liq) 30 ml DAILY PRN PO 12/17/17 18:30 (Protonix Inj) 40 mg Q12H IV PUSH 12/17/17 20:00 12/19/17 08:49 (Vitamin D3) 500 units DAILY PO 12/18/17 09:00 12/18/17 08:24 (Vitamin C) 500 mg HS PO 12/17/17 21:00 12/18/17 21:33 Patient Own Medication PT OWN MED:(Dimethyl Fumar... BID PO 12/17/17 21:00 12/18/17 21:35 Patient Own Medication PT OWN MED: OXYBUTY... HS PO 12/17/17 21:00 12/18/17 21:35 Patient Own Medication PT OWN MED: OXYBUTY... DAILY PO 12/18/17 09:00 12/18/17 08:21 Patient Own Medication PT OWN MED: PROPRANO... BID@0600,1200 PO 12/18/17 06:00 12/19/17 05:23 Patient Own Medication PT OWN MED: PROPRANO... DAILY@1800 PO 12/18/17 18:00 12/18/17 18:00 Patient Own Medication PT OWN MED: LOSAR... DAILY PO 12/18/17 09:00 12/18/17 08:23 Patient Own Medication PT OWN MED: MAGNES... DAILY PO 12/18/17 09:00 12/18/17 08:17 Patient Own Medication PT OWN MED: ATORVASTATIN 40 MG PO HS HS PO 12/17/17 22:00 12/18/17 21:35 (Glucotrol) 2.5 mg DAILY@0800,1700 PO 12/18/17 08:00 Future Hold (NovoLOG SUPPLEMENTAL SCALE) 1 ACHS SLIDING SCALE SQ 12/18/17 12:00 12/19/17 08:49 (NovoLOG INJ) 5 units TIDAC SQ 12/18/17 12:00 12/18/17 17:17 Albumin Human 3,500 ml @ 250 mls/hr EVERY OTHER DAY IV 12/19/17 09:00 12/31/17 22:59 (SoluMEDROL INJ) 125 mg EVERY OTHER DAY IV PUSH 12/19/17 09:00 12/31/17 09:01 (Pepcid Inj) 20 mg EVERY OTHER DAY IV PUSH 12/19/17 09:00 12/31/17 09:01 (Benadryl Inj) 25 mg UNSCH PRN IV PUSH 12/18/17 15:30 12/31/17 23:59 (Acd Formula Inj) 1,000 ml EVERY OTHER DAY OTHER 12/19/17 09:00 12/31/17 09:01 (Heparin Inj) 1,000 units UNSCH PRN IV FLUSH 12/18/17 15:30 12/31/17 23:59 (Oscal) 500 mg UNSCH PRN PO 12/19/17 09:00 12/31/17 23:59 Miscellaneous Information ALL NURSING DEPARTME... UNSCH PRN .XX 12/19/17 12:10 12/20/17 12:09 Calcium Gluconate 3.5 gm/Sodium Chloride 235 ml @ 235 mls/hr EVERY OTHER DAY IV 12/19/17 15:00 12/31/17 09:59 Family History Father of heart disease Mother is 89 and alive and healthy No family history of esophagus, stomach, colon or rectal cancers. Social History Denies tobacco use Denies ETOH use Denies illicit drug use Lives with at home in [place]. Physical Exam Vital Signs Vital Signs Date Time Temp Pulse Resp B/P (MAP) Pulse Ox O2 Delivery O2 Flow Rate FiO2 12/19/17 15:34 97.8 85 18 151/75 (100) 100 12/19/17 12:40 68 15 99 Room Air 12/19/17 12:30 97.8 69 15 111/66 (81) 99 Room Air 12/19/17 12:21 21 12/19/17 12:15 75 15 118/72 (87) 98 Room Air 12/19/17 12:10 97.8 74 14 121/73 (89) 98 Room Air 12/19/17 07:38 Room Air 12/19/17 07:20 97.5 80 18 114/67 (83) 96 12/19/17 04:00 97.8 69 16 125/97 (106) 96 12/19/17 00:00 97.9 65 16 126/66 (86) 96 12/18/17 20:00 97.7 70 17 124/72 (89) 100 12/18/17 19:35 21 Physical Exam GENERAL: Very pleasant 57 year old male resting in bed who is hungry. SKIN: Warm and dry. HEAD: Atraumatic. Normocephalic. EYES: Pupils equal and round. No scleral icterus. No injection or drainage. ENT: No nasal bleeding or discharge. Mucous membranes pink and moist. NECK: Trachea midline. CARDIOVASCULAR: Regular rate and rhythm. RESPIRATORY: No accessory muscle use. Clear to auscultation. Breath sounds equal bilaterally. GASTROINTESTINAL: Abdomen soft, non-tender, nondistended. MUSCULOSKELETAL: Extremities without clubbing, cyanosis, or edema. No obvious deformities. NEUROLOGICAL: Awake and alert. No obvious cranial nerve deficits. Normal speech. PSYCHIATRIC: Appropriate mood and affect; insight and judgment normal. Result Diagram: 12/18/17 0515 12/18/17 0515 Imaging Last 48 hours Impressions Catheter Placement X-Ray 12/19/17 1302 Signed Impressions: Service Date/Time: Tuesday, December 19, 2017 13:50 - CONCLUSION: Uncomplicated line placement as above. Natanael Pino MD Thoracic Spine MRI [id number] Signed Impressions: Service Date/Time: Monday, December 18, 2017 15:16 - CONCLUSION: 1. The thoracic cord has normal signal and morphology throughout. 2. Mild, nonacute appearing superior endplate compression fractures of T3, T12 and L1. 3. No foraminal or spinal stenosis. 4. T9 vertebral body hemangioma. Daren Farr MD Cervical Spine MRI 12/18/17949 Signed Impressions: Service Date/Time: Monday, December 18, 2017 15:16 - CONCLUSION: 1. Faint, chronic appearing T2 signal abnormality throughout most of the central cervical cord. No abnormal enhancement or other evidence of an active/acute lesion. 2. Mild degenerative changes as above. There is no foraminal or spinal stenosis. Daren Farr MD Brain MRI 12/18/17949 Signed Impressions: Service Date/Time: Monday, December 18, 2017 15:16 - CONCLUSION: Moderate signal abnormality in the periventricular white matter with involvement of the corpus callosum in a pattern characteristic of multiple sclerosis. No recent infarct. No abnormal enhancement. Gilbert Turcios MD Assessment and Plan Assessment and Plan 57 year old male with anemia; weakness; new finding of a large circumferential mass in the junction of the cecum to the ascending colon on colonoscopy -Will follow up on biopsy results -Will follow up on CT abdomen/pelvis results -Monitor Hmg -Will likely need laparoscopic assisted colectomy ---will plan for this week -Okay for regular diet from GS standpoint -Continue to hold anticoagulation -Thank you for this consult; We will continue to follow Discussed Condition With Dr. Lamb Mr. and Mrs. Chung Castro RN Attending Statement The exam, history, and the medical decision-making described in the above note were completed with the assistance of the mid-level provider. I reviewed and agree with the findings presented. I attest that I had a [id number] encounter with the patient on the same day, and personally performed and documented my assessment and findings in the medical record. Patient with multiple medical comorbidities, MS exacerbation has lower GI bleed 2/2 right colonic mass, likely carcinoma recommend lap assisted right hemicolectomy, possible open long discussion with at bedside about surgery, R/B/A discussed, all questions answered to her satisfaction, surgery possibly later this week Jolene PelayoP/Juvenile Detention Officer PERFORATOR Dec 19, 2017 16:20 Wu Lamb MD Dec 27, 2017 10:48
[2017-12-19] MEDS: SODIUM CHLORIDE 0.9% FLUSH 10 ML FLUSH IV FLUSH SCH ×2 (17:58→20:47)
[2017-12-19 19:40] VITALS: BP 133/73; PULSE 91; RESP 18; TEMP 98.2; O2SAT 100
[2017-12-19] MEDS: ASCORBIC ACID 500 MG TAB PO SCH (20:47)
[2017-12-19] MEDS: ATORVASTATIN 40 MG PO SCH (20:50)
[2017-12-19 21:38] LABS: AUTOMATED NEUTROPHIL # 8.2 TH/MM3 (1.8-7.7); BASOPHIL % 0.4 % (0.0-2.0); EOSINOPHIL # 0.2 TH/MM3 (0-0.4); EOSINOPHIL % 1.6 % (0.0-4.0); HEMATOCRIT 32.3 % (39.0-51.0); HEMOGLOBIN 10.1 GM/DL (13.0-17.0); MEAN CELL VOLUME 68.2 FL (80.0-100.0); MEAN CORPUSCULAR HEMOGLOBIN 21.3 PG (27.0-34.0); MEAN CORPUSCULAR HGB CONC 31.2 % (32.0-36.0); MEAN PLATELET VOLUME 7.5 FL (7.0-11.0); MONOCYTE # 0.5 TH/MM3 (0-0.9); PLATELET COUNT 372 TH/MM3 (150-450); RED BLOOD COUNT 4.74 MIL/MM3 (4.50-5.90); RED CELL DISTRIBUTION WIDTH 26.7 % (11.6-17.2); WHITE BLOOD COUNT 9.9 TH/MM3 (4.0-11.0)
[2017-12-19] MEDS ORDERED: IOHEXOL 350 MG/ML 10 ML VIAL (for RAD DIAG) IVCONTRAST ONE ×2 (21:52→21:57)
[2017-12-19 22:03] LABS: PROTHROMBIN TIME - PATIENT 9.7 SEC (9.8-11.6)
[2017-12-19 22:13] LABS: OVALOCYTES 2+ (NORMAL)
--- NOTE | 2017-12-19 22:30 | RADRPT ---
EXAM DATE/TIME: 12/19/2017 21:45 [place] COMPARISON: No previous studies available for comparison. INDICATIONS : Abdominal pain, evaluate for mass. IV CONTRAST: 95 cc Omnipaque 350 (iohexol) IV ORAL CONTRAST: Prescribed oral contrast ingested. RADIATION DOSE: 25.67 CTDIvol (mGy) MEDICAL HISTORY : Cardiovascular disease. Hypertension. Hernia, hiatal.MS SURGICAL HISTORY : None. ENCOUNTER: Initial ACUITY: 1 day PAIN SCALE: 4/10 LOCATION: abdomen TECHNIQUE: Volumetric scanning of the abdomen and pelvis was performed. Using automated exposure control and ad justment of the mA and/or kV according to patient size, radiation dose was kept as low as reasonably achievable to obtain optimal diagnostic quality images. DICOM format image data is available electro nically for review and comparison. FINDINGS: Lung bases are clear except for minimal scarring. There is fatty infiltration of the liver. Spleen, adrenals, kidneys and pancreas are unremarkable, ex cept small right sided renal cysts.. No calcified gallstones or biliary ductal dilatation. There is no free fluid. No bowel obstruction. No adenopathy. Small hiatal hernia. CONCLUSION: 1. No acute findings on abdomen and pelvic CT. The bladder is mildly this ended with mild bladder wal l thickening. Fatty liver. Small hiatal hernia. Gilbert Turcios MD on December 19, 2017 at 22:21 Board Certified Radiologist. This report was verified electronically.
[2017-12-19 23:00] VITALS: BP 115/72; PULSE 108; RESP 18; TEMP 98.2; O2SAT 95
[2017-12-20 03:00] VITALS: BP 113/72; PULSE 115; RESP 18; TEMP 97.9; O2SAT 94
[2017-12-20] MEDS: PROPRANOLOL 20 MG PO SCH ×3 (04:12→17:29)
[2017-12-20 05:08] LABS: AUTOMATED NEUTROPHIL # 9.3 TH/MM3 (1.8-7.7); BASOPHIL % 0.4 % (0.0-2.0); EOSINOPHIL # 0.1 TH/MM3 (0-0.4); EOSINOPHIL % 0.9 % (0.0-4.0); HEMATOCRIT 30.9 % (39.0-51.0); HEMOGLOBIN 9.6 GM/DL (13.0-17.0); MEAN CORPUSCULAR HEMOGLOBIN 20.9 PG (27.0-34.0); MEAN CORPUSCULAR HGB CONC 31.2 % (32.0-36.0); MEAN PLATELET VOLUME 7.3 FL (7.0-11.0); MONO % 4.9 % (0.0-8.0); MONOCYTE # 0.5 TH/MM3 (0-0.9); NEUT % 84.8 % (16.0-70.0); PLATELET COUNT 372 TH/MM3 (150-450); RED BLOOD COUNT 4.61 MIL/MM3 (4.50-5.90); RED CELL DISTRIBUTION WIDTH 26.7 % (11.6-17.2)
[2017-12-20 05:29] LABS: BICARBONATE 24.2 MEQ/L (21.0-32.0); CALCIUM 7.9 MG/DL (8.5-10.1); CREATININE 1.06 MG/DL (0.60-1.30)
[2017-12-20 06:58] LABS: OVALOCYTES 1+ (NORMAL); TEARDROP RBCS 1+ (NORMAL)
[2017-12-20 07:38] VITALS: BP 111/67; PULSE 88; RESP 19; TEMP 98.3; O2SAT 96
[2017-12-20] MEDS: INSULIN ASPART SUPPLEMENTAL SCALE SQ SCH ×4 (08:00→20:41)
[2017-12-20] MEDS: INSULIN ASPART 1,000 UNITS/10 ML VIAL SQ SCH ×3 (08:00→17:29)
[2017-12-20] MEDS: PANTOPRAZOLE SODIUM 40 MG VIAL IV PUSH SCH ×2 (08:14→20:25)
[2017-12-20] MEDS: CHOLECALCIFEROL (VIT D3) 1000 UNIT TAB PO SCH (08:14)
[2017-12-20] MEDS: SODIUM CHLORIDE 0.9% FLUSH 10 ML FLUSH IV FLUSH SCH ×2 (08:14→20:26)
[2017-12-20] MEDS: OXYBUTYNIN 5 MG PO SCH ×2 (08:15→20:33)
[2017-12-20] MEDS: MAGNESIUM OXIDE 400 MG PO SCH (08:15)
[2017-12-20] MEDS: LOSARTAN POTASSIUM 50 MG PO SCH (08:15)
--- NOTE | 2017-12-20 08:36 | HHI.PR ---
Subjective Remarks Follow-up for colonic mass No abdominal pain, no melena. No nausea or vomiting. Objective Vitals Vital Signs Date Time Temp Pulse Resp B/P (MAP) Pulse Ox O2 Delivery O2 Flow Rate FiO2 12/20/17 07:38 98.3 88 19 111/67 (82) 96 12/20/17 07:16 Room Air 12/20/17 03:00 97.9 115 18 113/72 (86) 94 12/19/17 23:00 98.2 108 18 115/72 (86) 95 12/19/17 19:40 98.2 91 18 133/73 (93) 100 12/19/17 15:34 97.8 85 18 151/75 (100) 100 12/19/17 12:40 68 15 99 Room Air 12/19/17 12:30 97.8 69 15 111/66 (81) 99 Room Air 12/19/17 12:21 21 12/19/17 12:15 75 15 118/72 (87) 98 Room Air 12/19/17 12:10 97.8 74 14 121/73 (89) 98 Room Air I/O 12/19/17 12/19/17 12/19/17 12/20/17 12/20/17 12/20/17 07:00 15:00 23:00 07:00 15:00 23:00 Intake Total 1500 ml 300 ml 480 ml Output Total 5 ml Balance 1495 ml 300 ml 480 ml Intake Oral 1500 ml 480 ml Other 300 ml Output Urine Total 5 ml # Voids 5 # Bowel Movements 12 1 Result Diagram: 12/20/17 0325 12/20/17 0325 Objective Remarks None distress Regular rate and rhythm Clear breath sounds Abdomen soft, nontender No edema Alert awake and oriented, no focal deficits. Bilateral lower extremity weakness , upper extremities about 4/5 bilaterally. A/P Assessment and Plan 57 YOWM with MS, DM, and HLD presented with increasing lower extremity weakness and dependence on his who feels she can no longer provide for him. He also had episode of melena and was found to have a positive Hemoccult in the ED with associated anemia. Microcytic anemia secondary to likely GI bleed from cecal mass - Status post GI and hematology consultation, status post EGD and colonoscopy 12/19/2017. Showed significant esophagitis with small ulcer in the e.g. junction , duodenal ulcer , secondary to steroid use. Also found to have a large circumferential mass in the cecum to the ascending colon, follow-up biopsy results. No active bleeding, f/u CEA, no NSAIDS, continue protonix Colonic mass-status post colonoscopy, showed large circumferential mass in the cecum to the ascending colon, CT scan of the abdomen reviewed, benign. General surgery consulted, for endoscopic resection on Tuesday. Multiple sclerosis exacerbation - Pt recently completed a course of IV steroids within the last couple weeks, neurology following, MRI brain with chronic enhancement consistent with MS, T spine negative and cervical spine with faint enhancement, Heme was consulted for plasmapheresis which is tentatively planned after surgery, IR consulted for Vas-Cath placement Generalized weakness and debility - PT consulted - Case management consulted for d/c needs DM - Pt's states he has never formally been diagnosed with DM yet he is on metformin and glipizide - A1c elevated at 8.3, on steroids, continue NovoLog 5 units 3 times daily before meals and SSI, BG's 160s-220s. Add long-acting insulin if needed. HLD - Continue home statin HTN - BPs stable - Continue home Losartan and propranolol DVT prophylaxis: hold chemical anticoagulation for possible bleed, b/l SCDs Discharge Planning Discharge to [place] once cleared by hematology and general surgery Renato Beltran MD Dec 20, 2017 08:35
[2017-12-20] MEDS: DIMETHYL FUMARATE 240 MG PO SCH ×2 (09:00→20:33)
--- NOTE | 2017-12-20 11:45 | PD.ONC.PN ---
Subjective Subjective Remarks Afebrile overnight. patient resting in bed in nad. worried about his recent finding of colon mass. still having leg weakness. Objective Data Date Time Temp Pulse Resp B/P (MAP) Pulse Ox O2 Delivery O2 Flow Rate FiO2 12/20/17 07:38 98.3 88 19 111/67 (82) 96 12/20/17 07:16 Room Air 12/20/17 03:00 97.9 115 18 113/72 (86) 94 12/19/17 23:00 98.2 108 18 115/72 (86) 95 12/19/17 19:40 98.2 91 18 133/73 (93) 100 12/19/17 15:34 97.8 85 18 151/75 (100) 100 12/19/17 12:40 68 15 99 Room Air 12/19/17 12:30 97.8 69 15 111/66 (81) 99 Room Air 12/19/17 12:21 21 12/19/17 12:15 75 15 118/72 (87) 98 Room Air 12/19/17 12:10 97.8 74 14 121/73 (89) 98 Room Air 12/20/17 12/20/17 12/20/17 07:00 15:00 23:00 Intake Total 480 ml Balance 480 ml Result Diagram: 12/20/17 0325 12/20/17 0325 Laboratory Results Laboratory Tests Test 12/19/17 19:58 12/20/17 03:25 White Blood Count 9.9 TH/MM3 11.0 TH/MM3 Red Blood Count 4.74 MIL/MM3 4.61 MIL/MM3 Hemoglobin 10.1 GM/DL 9.6 GM/DL Hematocrit 32.3 % 30.9 % Mean Corpuscular Volume 68.2 FL 67.0 FL Mean Corpuscular Hemoglobin 21.3 PG 20.9 PG Mean Corpuscular Hemoglobin Concent 31.2 % 31.2 % Red Cell Distribution Width 26.7 % 26.7 % Platelet Count 372 TH/MM3 372 TH/MM3 Mean Platelet Volume 7.5 FL 7.3 FL Neutrophils (%) (Auto) 83.0 % 84.8 % Lymphocytes (%) (Auto) 10.0 % 9.0 % Monocytes (%) (Auto) 5.0 % 4.9 % Eosinophils (%) (Auto) 1.6 % 0.9 % Basophils (%) (Auto) 0.4 % 0.4 % Neutrophils # (Auto) 8.2 TH/MM3 9.3 TH/MM3 Lymphocytes # (Auto) 1.0 TH/MM3 1.0 TH/MM3 Monocytes # (Auto) 0.5 TH/MM3 0.5 TH/MM3 Eosinophils # (Auto) 0.2 TH/MM3 0.1 TH/MM3 Basophils # (Auto) 0.0 TH/MM3 0.0 TH/MM3 CBC Comment AUTO DIFF AUTO DIFF Differential Comment AUTO DIFF CONFIRMED AUTO DIFF CONFIRMED Ovalocytes 2+ 1+ Prothrombin Time 9.7 SEC Prothromb Time International Ratio 1.0 RATIO Activated Partial Thromboplast Time 21.0 SEC Fibrinogen 361 mg/dL Carcinoembryonic Antigen 8.1 NG/ML Platelet Estimate NORMAL Platelet Morphology Comment NORMAL Tear Drop Cells 1+ Blood Urea Nitrogen 12 MG/DL Creatinine 1.06 MG/DL Random Glucose 176 MG/DL Calcium Level 7.9 MG/DL Sodium Level 139 MEQ/L Potassium Level 3.6 MEQ/L Chloride Level 105 MEQ/L Carbon Dioxide Level 24.2 MEQ/L Anion Gap 10 MEQ/L Estimat Glomerular Filtration Rate 72 ML/MIN Imaging Studies Last 24 hours Impressions Catheter Placement X-Ray 12/19/17 1302 Signed Impressions: Service Date/Time: Tuesday, December 19, 2017 13:50 - CONCLUSION: Uncomplicated line placement as above. Natanael Pino MD Administered Medications Medications (Trade) Dose Ordered Sig/Karina Route PRN Reason Start Time Stop Time Status Last Admin Dose Admin Sodium Chloride 1,000 ml @ 75 mls/hr [id number] IV 12/17/17 18:23 12/18/17 08:14 Sodium Chloride (NS Flush) 2 ml BID IV FLUSH 12/17/17 21:00 12/20/17 08:14 Pantoprazole Sodium (Protonix Inj) 40 mg Q12H IV PUSH 12/17/17 20:00 12/20/17 08:14 Cholecalciferol (Vitamin D3) 500 units DAILY PO 12/18/17 09:00 12/20/17 08:14 Ascorbic Acid (Vitamin C) 500 mg HS PO 12/17/17 21:00 12/19/17 20:47 Patient Own Medication PT OWN MED:(Dimethyl Fumar... BID PO 12/17/17 21:00 4/10/18 09:00 Patient Own Medication PT OWN MED: OXYBUTY... HS PO 12/17/17 21:00 12/19/17 20:49 Patient Own Medication PT OWN MED: OXYBUTY... DAILY PO 12/18/17 09:00 12/20/17 08:15 Patient Own Medication PT OWN MED: PROPRANO... BID@0600,1200 PO 12/18/17 06:00 12/20/17 04:12 Patient Own Medication PT OWN MED: PROPRANO... DAILY@1800 PO 12/18/17 18:00 12/19/17 17:58 Patient Own Medication PT OWN MED: LOSAR... DAILY PO 12/18/17 09:00 12/20/17 08:15 Patient Own Medication PT OWN MED: MAGNES... DAILY PO 12/18/17 09:00 12/20/17 08:15 Patient Own Medication PT OWN MED: ATORVASTATIN 40 MG PO HS HS PO 12/17/17 22:00 12/19/17 20:50 Insulin Aspart (NovoLOG SUPPLEMENTAL SCALE) 1 ACHS SLIDING SCALE SQ 12/18/17 12:00 12/20/17 08:00 Insulin Aspart (NovoLOG INJ) 5 units TIDAC SQ 12/18/17 12:00 12/20/17 08:00 Objective Remarks GENERAL: Middle aged male supine in bed SKIN: Warm and dry. HEAD: Normocephalic. EYES: No injection or drainage. NECK: Supple, trachea midline. CARDIOVASCULAR: Regular rate and rhythm RESPIRATORY: anterior ma clear GASTROINTESTINAL: Abdomen soft, non-tender, nondistended. EXTREMITIES: No cyanosis NEUROLOGICAL: awake, normal speech. Assessment/Plan Problem List: (1) Colonic mass ICD Codes: K63.9 - Disease of intestine, unspecified Plan: --colon mass seen during colonoscopy on 12/19, biopsy pathology is pending. --Large circumferential mass in the junction of the cecum to the ascending colon consistent with cancer biopsy was done (2) Multiple sclerosis exacerbation ICD Codes: G35 - Multiple sclerosis Status: Acute Plan: --hematology consulted to coordinate plasma exchange. --will place on hold until decision is made in terms of colectomy, now with new colon mass. Assessment 57y/o male with MS exacerbation. Hematology consulted for plasma exchange. h/o Hyperglycemia/borderline diabetes. Hypertension. Hyperlipidemia. Iron deficiency anemia. Suspected gastrointestinal bleed. Plan 1. monitor CBC, coags 2. discussed with patient that we will delay plasma exchange until after his surgery and after he is cleared by general surgery. Attending Statement The exam, history, and the medical decision-making described in the above note were completed with the assistance of the mid-level provider. I reviewed and agree with the findings presented. I attest that I had a [id number] encounter with the patient on the same day, and personally performed and documented my assessment and findings in the medical record. Hold further plasma exchange treatments Large colon mass concerning for colon carcinoma planned surgery for this tuesday further recs once biopsy results are available microcytic anemia obtain iron studies B12/folate likely iron deficient will consider iron infusions Hamida Cueva Dec 20, 2017 11:45 Santi Mitchell MD Dec 20, 2017 19:25
[2017-12-20 11:48] VITALS: BP 106/57; PULSE 76; RESP 19; TEMP 97.7; O2SAT 99
[2017-12-20] MEDS: SODIUM CHLOR 0.45% 1000 ML INJ 1,000 ML IV SCH (13:03)
--- NOTE | 2017-12-20 14:15 | HHI.PR ---
cc: Wu Lamb MD Subjective Subjective Notes Resting in bed So thankful to be able to eat lunch Visiting with and friends at bedside In good spirits Mr. Wilkes and very complementary of CRISPIN Castro Objective Vitals/I&O Vital Signs Date Time Temp Pulse Resp B/P (MAP) Pulse Ox O2 Delivery O2 Flow Rate FiO2 12/20/17 11:48 97.7 76 19 106/57 (73) 99 12/20/17 07:16 Room Air 12/19/17 12:21 21 Labs Laboratory Tests Test 12/19/17 19:58 12/20/17 03:25 White Blood Count 9.9 11.0 Red Blood Count 4.74 4.61 Hemoglobin 10.1 9.6 Hematocrit 32.3 30.9 Mean Corpuscular Volume 68.2 67.0 Mean Corpuscular Hemoglobin 21.3 20.9 Mean Corpuscular Hemoglobin Concent 31.2 31.2 Red Cell Distribution Width 26.7 26.7 Platelet Count 372 372 Mean Platelet Volume 7.5 7.3 Neutrophils (%) (Auto) 83.0 84.8 Lymphocytes (%) (Auto) 10.0 9.0 Monocytes (%) (Auto) 5.0 4.9 Eosinophils (%) (Auto) 1.6 0.9 Basophils (%) (Auto) 0.4 0.4 Neutrophils # (Auto) 8.2 9.3 Lymphocytes # (Auto) 1.0 1.0 Monocytes # (Auto) 0.5 0.5 Eosinophils # (Auto) 0.2 0.1 Basophils # (Auto) 0.0 0.0 CBC Comment AUTO DIFF AUTO DIFF Differential Comment AUTO DIFF CONFIRMED AUTO DIFF CONFIRMED Ovalocytes 2+ 1+ Prothrombin Time 9.7 Prothromb Time International Ratio 1.0 Activated Partial Thromboplast Time 21.0 Fibrinogen 361 Carcinoembryonic Antigen 8.1 Platelet Estimate NORMAL Platelet Morphology Comment NORMAL Tear Drop Cells 1+ Blood Urea Nitrogen 12 Creatinine 1.06 Random Glucose 176 Calcium Level 7.9 Sodium Level 139 Potassium Level 3.6 Chloride Level 105 Carbon Dioxide Level 24.2 Anion Gap 10 Estimat Glomerular Filtration Rate 72 Radiology Last 48 hours Impressions Catheter Placement X-Ray 12/19/17 1302 Signed Impressions: Service Date/Time: Tuesday, December 19, 2017 13:50 - CONCLUSION: Uncomplicated line placement as above. Natanael Pino MD Thoracic Spine MRI 12/18/17 [id number] Signed Impressions: Service Date/Time: Monday, December 18, 2017 15:16 - CONCLUSION: 1. The thoracic cord has normal signal and morphology throughout. 2. Mild, nonacute appearing superior endplate compression fractures of T3, T12 and L1. 3. No foraminal or spinal stenosis. 4. T9 vertebral body hemangioma. Daren Farr MD Cervical Spine MRI 12/18/1788 Signed Impressions: Service Date/Time: Monday, December 18, 2017 15:16 - CONCLUSION: 1. Faint, chronic appearing T2 signal abnormality throughout most of the central cervical cord. No abnormal enhancement or other evidence of an active/acute lesion. 2. Mild degenerative changes as above. There is no foraminal or spinal stenosis. Daren Farr MD Brain MRI 12/18/17 5950 Signed Impressions: Service Date/Time: Monday, December 18, 2017 15:16 - CONCLUSION: Moderate signal abnormality in the periventricular white matter with involvement of the corpus callosum in a pattern characteristic of multiple sclerosis. No recent infarct. No abnormal enhancement. Gilbert Turcios MD Cardiovascular: Regular Lungs: Clear Abdomen: Non-distended, Non-tender Extremities: No edema A/P Assessment and Plan 57 year old male with anemia; weakness; new finding of a large circumferential mass in the junction of the cecum to the ascending colon on colonoscopy -Will follow up on biopsy results---still pending -Monitor Hmg -Will likely need laparoscopic assisted colectomy ---plan for Tuesday -Regular diet -Continue to hold anticoagulation -Discussed timing of surgery with Ismael MEHTA Gloria at bedside; family very happy with her care Jolene Pelayo/Physician'S Aide ARNP Dec 20, 2017 14:15
--- NOTE | 2017-12-20 14:41 | HHI.GIFU ---
Subjective Remarks Pt resting in bed, visiting with family. Going for lap assisted colectomy . No GI complaints. (Eugenia Keenan) Objective Vitals I&O Vital Signs Date Time Temp Pulse Resp B/P (MAP) Pulse Ox O2 Delivery O2 Flow Rate FiO2 12/20/17 11:48 97.7 76 19 106/57 (73) 99 12/20/17 07:38 98.3 88 19 111/67 (82) 96 12/20/17 07:16 Room Air 12/20/17 03:00 97.9 115 18 113/72 (86) 94 12/19/17 23:00 98.2 108 18 115/72 (86) 95 12/19/17 19:40 98.2 91 18 133/73 (93) 100 12/19/17 15:34 97.8 85 18 151/75 (100) 100 I/O 12/19/17 12/19/17 12/19/17 12/20/17 12/20/17 12/20/17 07:00 15:00 23:00 07:00 15:00 23:00 Intake Total 1500 ml 300 ml 480 ml 850 ml Output Total 5 ml 200 ml Balance 1495 ml 300 ml 480 ml 650 ml Intake Oral 1500 ml 480 ml 850 ml Other 300 ml Output Urine Total 5 ml 200 ml # Voids 5 2 # Bowel Movements 12 1 Laboratory Laboratory Tests Test 12/19/17 19:58 12/20/17 03:25 White Blood Count 9.9 11.0 Red Blood Count 4.74 4.61 Hemoglobin 10.1 9.6 Hematocrit 32.3 30.9 Mean Corpuscular Volume 68.2 67.0 Mean Corpuscular Hemoglobin 21.3 20.9 Mean Corpuscular Hemoglobin Concent 31.2 31.2 Red Cell Distribution Width 26.7 26.7 Platelet Count 372 372 Mean Platelet Volume 7.5 7.3 Neutrophils (%) (Auto) 83.0 84.8 Lymphocytes (%) (Auto) 10.0 9.0 Monocytes (%) (Auto) 5.0 4.9 Eosinophils (%) (Auto) 1.6 0.9 Basophils (%) (Auto) 0.4 0.4 Neutrophils # (Auto) 8.2 9.3 Lymphocytes # (Auto) 1.0 1.0 Monocytes # (Auto) 0.5 0.5 Eosinophils # (Auto) 0.2 0.1 Basophils # (Auto) 0.0 0.0 CBC Comment AUTO DIFF AUTO DIFF Differential Comment AUTO DIFF CONFIRMED AUTO DIFF CONFIRMED Ovalocytes 2+ 1+ Prothrombin Time 9.7 Prothromb Time International Ratio 1.0 Activated Partial Thromboplast Time 21.0 Fibrinogen 361 Carcinoembryonic Antigen 8.1 Platelet Estimate NORMAL Platelet Morphology Comment NORMAL Tear Drop Cells 1+ Blood Urea Nitrogen 12 Creatinine 1.06 Random Glucose 176 Calcium Level 7.9 Sodium Level 139 Potassium Level 3.6 Chloride Level 105 Carbon Dioxide Level 24.2 Anion Gap 10 Estimat Glomerular Filtration Rate 72 Imaging Last Impressions Catheter Placement X-Ray 12/19/17 1302 Signed Impressions: Service Date/Time: Tuesday, December 19, 2017 13:50 - CONCLUSION: Uncomplicated line placement as above. Natanael Pino MD Abdomen/Pelvis CT 12/19/17 0000 Signed Impressions: Service Date/Time: Tuesday, December 19, 2017 21:45 - CONCLUSION: 1. No acute findings on abdomen and pelvic CT. The bladder is mildly this ended with mild bladder wall thickening. Fatty liver. Small hiatal hernia. Gilbert Turcios MD Thoracic Spine MRI 12/18/17 0950 Signed Impressions: Service Date/Time: Monday, December 18, 2017 15:16 - CONCLUSION: 1. The thoracic cord has normal signal and morphology throughout. 2. Mild, nonacute appearing superior endplate compression fractures of T3, T12 and L1. 3. No foraminal or spinal stenosis. 4. T9 vertebral body hemangioma. Daren Farr MD Cervical Spine MRI 12/18/17 0950 Signed Impressions: Service Date/Time: Monday, December 18, 2017 15:16 - CONCLUSION: 1. Faint, chronic appearing T2 signal abnormality throughout most of the central cervical cord. No abnormal enhancement or other evidence of an active/acute lesion. 2. Mild degenerative changes as above. There is no foraminal or spinal stenosis. Daren Farr MD Brain MRI 12/18/17 0950 Signed Impressions: Service Date/Time: Monday, December 18, 2017 15:16 - CONCLUSION: Moderate signal abnormality in the periventricular white matter with involvement of the corpus callosum in a pattern characteristic of multiple sclerosis. No recent infarct. No abnormal enhancement. Gilbert Turcios MD Chest X-Ray 12/17/17 1519 Signed Impressions: Service Date/Time: Sunday, December 17, 2017 15:23 - CONCLUSION: Cardiomegaly. Daren Escamilla MD Physical Exam HEENT: PERRL; normocephalic; atraumatic; no jaundice. CHEST: CTA CARDIAC: RRR ABDOMEN: Soft, protuberant, nontender; no hepatosplenomegaly; bowel sounds are present in all four quadrants. EXTREMITIES: No clubbing, cyanosis, or edema. SKIN: Normal; no rash; no jaundice. DOLPHIN RESEARCHER: No focal deficits; alert and oriented times three. (Eugenia Keenan) Assessment and Plan Assessment: (1) GI bleed ICD Codes: K92.2 - Gastrointestinal hemorrhage, unspecified Status: Acute (2) Anemia ICD Codes: D64.9 - Anemia, unspecified Status: Acute Plan Weakness and malaise approximately 2 weeks worsened to the point that he is total care for his . Hemoccult-positive this admission. Last hospitalization noted hemoglobin at 7 transfused 1 unit/, negative Hemoccult.. History of NSAID use. Current hemoglobin 9.3, labs show iron deficiency anemia. She denies any dizziness, no nausea, vomiting, diarrhea, or constipation. No history of EGD or colonoscopy in the past MS diagnosed 7 years ago, according to the record patient is no code DO NOT RESUSCITATE secondary to this diagnosis. 12/19/2017 patient is 57-year-old presented with anemia, colonoscopy and endoscopy was done IMPRESSION: Significant esophagitis grade D with small ulcer in the EG junction biopsy was done Gastritis biopsy was done to rule out H. pylori Duodenal ulcer in the bulb Large circumferential mass in the junction of the cecum to the ascending colon consistent with cancer biopsy was done Polyp in the transverse colon removed by snare Internal hemorrhoids No active bleeding 12/20/17 goign for lap assisted colectomy . colon bx still pending. NO GI complaints. had vascath. hem/onc following CEA elevated 8.1 CT no acute findings. PLAN: Await biopsy results No NSAIDs Protonix 40 mg daily Colonoscopy in 1 year await surgery pt seen by myself and Dr Harding and this note is on his behalf (Eugenia Keenan) Plan Patient was seen and examined, and pathology is back STOMACH, ANTRUM, BIOPSY: - MILD CHRONIC ACTIVE GASTRITIS. - NEGATIVE FOR HELICOBACTER PYLORI (STEWART STAIN). #2- ESOPHAGUS, DISTAL, BIOPSY: - SEVERE ACUTE ULCERATIVE ESOPHAGITIS (SEE COMMENT). #3- COLON, TRANSVERSE, POLYP, BIOPSY: - ADENOMATOUS POLYP. #4- COLON, JUNCTION OF CECUM AND ASCENDING COLON MASS, BIOPSY: - INVASIVE, MODERATELY DIFFERENTIATED ADENOCARCINOMA. Colon cancer in the cecum junction with the ascending colon, patient is going to have surgery on Tuesday, we will sign off at this time (Heidi Harding MD) Eugenia Keenan Dec 20, 2017 14:41 Heidi Harding MD Dec 20, 2017 19:27
[2017-12-20 15:32] VITALS: BP 112/60; PULSE 77; RESP 19; TEMP 98.7; O2SAT 98
[2017-12-20 19:00] VITALS: BP 112/64; PULSE 67; RESP 17; TEMP 98; O2SAT 98
[2017-12-20] MEDS: IRON SUCROSE INJ 200 MG in SODIUM CHLORIDE 0.9% INJ 100 ML IV SCH (20:19)
[2017-12-20] MEDS: ATORVASTATIN 40 MG PO SCH (20:32)
[2017-12-20] MEDS: ASCORBIC ACID 500 MG TAB PO SCH (20:37)
--- NOTE | 2017-12-20 22:31 | HHI.PR ---
Review/Management Diagnosis Multiple sclerosis Colon Ca Plan I agree with holding plasmapheresis due to CA colon and surgery planned for Tuesday Diagnosis/Plan: Subjective Subjective Comments No acute events reported no new neurologic sx. Active Medications Current Medications Medications (Trade) Dose Ordered Sig/Karina Route Start Time Stop Time Status Last Admin (D50w (Vial) Inj) 50 ml UNSCH PRN IV PUSH 12/17/17 18:30 (Glucagon Inj) 1 mg UNSCH PRN OTHER 12/17/17 18:30 Sodium Chloride 1,000 ml @ 75 mls/hr [id number] IV 12/17/17 18:23 12/18/17 08:14 (NS Flush) 2 ml UNSCH PRN IV FLUSH 12/17/17 18:30 (NS Flush) 2 ml BID IV FLUSH 12/17/17 21:00 12/20/17 20:26 (Tylenol) 650 mg Q4H PRN PO 12/17/17 18:30 (Zofran Inj) 4 mg Q6H PRN IVP 12/17/17 18:30 (Narcan Inj) 0.4 mg UNSCH PRN IV PUSH 12/17/17 18:30 (Milk Of Magnesia Liq) 30 ml Q12H PRN PO 12/17/17 18:30 (Senokot) 17.2 mg Q12H PRN PO 12/17/17 18:30 (Dulcolax Supp) 10 mg DAILY PRN RECTAL 12/17/17 18:30 (Lactulose Liq) 30 ml DAILY PRN PO 12/17/17 18:30 (Protonix Inj) 40 mg Q12H IV PUSH 12/17/17 20:00 12/20/17 20:25 (Vitamin D3) 500 units DAILY PO 12/18/17 09:00 12/20/17 08:14 (Vitamin C) 500 mg HS PO 12/17/17 21:00 12/20/17 20:37 Patient Own Medication PT OWN MED:(Dimethyl Fumar... BID PO 12/17/17 21:00 12/20/17 20:33 Patient Own Medication PT OWN MED: OXYBUTY... HS PO 12/17/17 21:00 12/20/17 20:33 Patient Own Medication PT OWN MED: OXYBUTY... DAILY PO 12/18/17 09:00 12/20/17 08:15 Patient Own Medication PT OWN MED: PROPRANO... BID@0600,1200 PO 12/18/17 06:00 12/20/17 12:14 Patient Own Medication PT OWN MED: PROPRANO... DAILY@1800 PO 12/18/17 18:00 12/20/17 17:29 Patient Own Medication PT OWN MED: LOSAR... DAILY PO 12/18/17 09:00 12/20/17 08:15 Patient Own Medication PT OWN MED: MAGNES... DAILY PO 12/18/17 09:00 12/20/17 08:15 Patient Own Medication PT OWN MED: ATORVASTATIN 40 MG PO HS HS PO 12/17/17 22:00 12/20/17 20:32 (Glucotrol) 2.5 mg DAILY@0800,1700 PO 12/18/17 08:00 Future Hold (NovoLOG SUPPLEMENTAL SCALE) 1 ACHS SLIDING SCALE SQ 12/18/17 12:00 12/20/17 20:41 (NovoLOG INJ) 5 units TIDAC SQ 12/18/17 12:00 12/20/17 17:29 Albumin Human 3,500 ml @ 250 mls/hr EVERY OTHER DAY IV 12/19/17 09:00 12/31/17 22:59 (SoluMEDROL INJ) 125 mg EVERY OTHER DAY IV PUSH 12/19/17 09:00 12/31/17 09:01 (Pepcid Inj) 20 mg EVERY OTHER DAY IV PUSH 12/19/17 09:00 12/31/17 09:01 (Benadryl Inj) 25 mg UNSCH PRN IV PUSH 12/18/17 15:30 12/31/17 23:59 (Acd Formula Inj) 1,000 ml EVERY OTHER DAY OTHER 12/19/17 09:00 12/31/17 09:01 (Heparin Inj) 1,000 units UNSCH PRN IV FLUSH 12/18/17 15:30 12/31/17 23:59 (Oscal) 500 mg UNSCH PRN PO 12/19/17 09:00 12/31/17 23:59 Calcium Gluconate 3.5 gm/Sodium Chloride 235 ml @ 235 mls/hr EVERY OTHER DAY IV 12/19/17 15:00 12/31/17 09:59 Iron Sucrose 200 mg/Sodium Chloride 110 ml @ 110 mls/hr DAILY IV 12/20/17 19:30 12/22/17 09:59 12/20/17 20:19 Allergies Allergies Coded Allergies No Known Allergies (Verified Allergy, Unknown, 12/17/17) Exam I&O / VS 12/20/17 12/20/17 12/21/17 15:00 23:00 07:00 Intake Total 850 ml Output Total 200 ml Balance 650 ml Intake Oral 850 ml Output Urine Total 200 ml # Voids 2 Vital Signs Date Time Temp Pulse Resp B/P (MAP) Pulse Ox O2 Delivery O2 Flow Rate FiO2 12/20/17 19:00 98.0 67 17 112/64 (80) 98 12/20/17 15:32 98.7 77 19 112/60 (77) 98 12/20/17 11:48 97.7 76 19 106/57 (73) 99 12/20/17 07:38 98.3 88 19 111/67 (82) 96 12/20/17 07:16 Room Air 12/20/17 03:00 97.9 115 18 113/72 (86) 94 12/19/17 23:00 98.2 108 18 115/72 (86) 95 Respiratory: Lungs CTA, Non-labored respirations, BS equal, Symmetrical expansion Cardiology: Normal rate Musculoskeletal: ROM Exam Comments alert CN--bilateral ESEQUIEL MOTOR 4/5 BUE, 3/5 BLE Objective Micro and Labs Laboratory Tests Test 12/20/17 03:25 White Blood Count 11.0 Red Blood Count 4.61 Hemoglobin 9.6 Hematocrit 30.9 Mean Corpuscular Volume 67.0 Mean Corpuscular Hemoglobin 20.9 Mean Corpuscular Hemoglobin Concent 31.2 Red Cell Distribution Width 26.7 Platelet Count 372 Mean Platelet Volume 7.3 Neutrophils (%) (Auto) 84.8 Lymphocytes (%) (Auto) 9.0 Monocytes (%) (Auto) 4.9 Eosinophils (%) (Auto) 0.9 Basophils (%) (Auto) 0.4 Neutrophils # (Auto) 9.3 Lymphocytes # (Auto) 1.0 Monocytes # (Auto) 0.5 Eosinophils # (Auto) 0.1 Basophils # (Auto) 0.0 CBC Comment AUTO DIFF Differential Comment AUTO DIFF CONFIRMED Platelet Estimate NORMAL Platelet Morphology Comment NORMAL Tear Drop Cells 1+ Ovalocytes 1+ Blood Urea Nitrogen 12 Creatinine 1.06 Random Glucose 176 Calcium Level 7.9 Sodium Level 139 Potassium Level 3.6 Chloride Level 105 Carbon Dioxide Level 24.2 Anion Gap 10 Estimat Glomerular Filtration Rate 72 Noah Shafer MD PhD Dec 20, 2017 22:31
[2017-12-20 23:58] VITALS: BP 124/68; PULSE 69; RESP 18; TEMP 97.4; O2SAT 95
[2017-12-21] MEDS: SODIUM CHLOR 0.45% 1000 ML INJ 1,000 ML IV SCH ×3 (02:23→21:07)
[2017-12-21] MEDS: PROPRANOLOL 20 MG PO SCH ×3 (05:24→12:00)
[2017-12-21 05:27] VITALS: BP 127/56; PULSE 99; RESP 17; TEMP 97.9; O2SAT 94
[2017-12-21 08:00] VITALS: BP 122/65; PULSE 84; RESP 16; TEMP 98.4; O2SAT 93
[2017-12-21] MEDS: INSULIN ASPART 1,000 UNITS/10 ML VIAL SQ SCH ×3 (08:46→17:33)
[2017-12-21] MEDS: INSULIN ASPART SUPPLEMENTAL SCALE SQ SCH ×4 (08:47→21:15)
[2017-12-21] MEDS: PANTOPRAZOLE SODIUM 40 MG VIAL IV PUSH SCH ×2 (08:55→21:15)
[2017-12-21] MEDS: CHOLECALCIFEROL (VIT D3) 1000 UNIT TAB PO SCH (08:56)
[2017-12-21] MEDS: SODIUM CHLORIDE 0.9% FLUSH 10 ML FLUSH IV FLUSH SCH ×2 (08:56→21:16)
[2017-12-21] MEDS: CALCIUM GLUCONATE IV SCH (09:00)
[2017-12-21] MEDS: ANTICOAGULANT CITRATE DEXTROSE SOLN-A 1L OTHER SCH (09:00)
[2017-12-21] MEDS: SODIUM CHLOR 0.9% IV SCH (09:00)
[2017-12-21] MEDS: ALBUMIN 5% INJ 3,500 ML IV SCH (09:00)
[2017-12-21] MEDS: FAMOTIDINE 20 MG/2 ML VIAL IV PUSH SCH ×2 (09:00→10:53)
--- NOTE | 2017-12-21 09:16 | HHI.PR ---
Subjective Remarks In the chair appears not acute distress at this time. Denies having any abdominal pain no nausea or vomiting no diarrhea or constipation. No rectal bleeding. Feels tired. Some shortness of breath however satting well on room air at this time. Objective Vitals Vital Signs Date Time Temp Pulse Resp B/P (MAP) Pulse Ox O2 Delivery O2 Flow Rate FiO2 12/21/17 08:00 98.4 84 16 122/65 (84) 93 12/21/17 05:27 97.9 99 17 127/56 (79) 94 12/20/17 23:58 97.4 69 18 124/68 (86) 95 12/20/17 19:00 98.0 67 17 112/64 (80) 98 12/20/17 15:32 98.7 77 19 112/60 (77) 98 12/20/17 11:48 97.7 76 19 106/57 (73) 99 I/O 12/20/17 12/20/17 12/20/17 12/21/17 12/21/17 12/21/17 07:00 15:00 23:00 07:00 15:00 23:00 Intake Total 480 ml 850 ml 720 ml Output Total 200 ml Balance 480 ml 650 ml 720 ml Intake Oral 480 ml 850 ml 720 ml Output Urine Total 200 ml # Voids 5 2 6 # Bowel Movements 1 0 Result Diagram: 12/20/17 0325 12/20/17 0325 Imaging Last Impressions Catheter Placement X-Ray 12/19/17 1302 Signed Impressions: Service Date/Time: Tuesday, December 19, 2017 13:50 - CONCLUSION: Uncomplicated line placement as above. Natanael Pino MD Abdomen/Pelvis CT 12/19/17 0000 Signed Impressions: Service Date/Time: Tuesday, December 19, 2017 21:45 - CONCLUSION: 1. No acute findings on abdomen and pelvic CT. The bladder is mildly this ended with mild bladder wall thickening. Fatty liver. Small hiatal hernia. Gilbert Turcios MD Thoracic Spine MRI 12/18/17 0950 Signed Impressions: Service Date/Time: Monday, December 18, 2017 15:16 - CONCLUSION: 1. The thoracic cord has normal signal and morphology throughout. 2. Mild, nonacute appearing superior endplate compression fractures of T3, T12 and L1. 3. No foraminal or spinal stenosis. 4. T9 vertebral body hemangioma. Daren Farr MD Cervical Spine MRI 12/18/17 3135 Signed Impressions: Service Date/Time: Monday, December 18, 2017 15:16 - CONCLUSION: 1. Faint, chronic appearing T2 signal abnormality throughout most of the central cervical cord. No abnormal enhancement or other evidence of an active/acute lesion. 2. Mild degenerative changes as above. There is no foraminal or spinal stenosis. Daren Farr MD Brain MRI 12/18/17 1051 Signed Impressions: Service Date/Time: Monday, December 18, 2017 15:16 - CONCLUSION: Moderate signal abnormality in the periventricular white matter with involvement of the corpus callosum in a pattern characteristic of multiple sclerosis. No recent infarct. No abnormal enhancement. Gilbert Turcios MD Chest X-Ray 12/17/17 1259 Signed Impressions: Service Date/Time: Sunday, December 17, 2017 15:23 - CONCLUSION: Cardiomegaly. Daren Escamilla MD Objective Remarks GENERAL: 57 yo male, in the chair appears in nad. CARDIOVASCULAR: Regular rate and rhythm. RESPIRATORY: No accessory muscle use. Clear to auscultation. Breath sounds equal bilaterally. GASTROINTESTINAL: Abdomen soft, non-tender, nondistended. Hepatic and splenic margins not palpable. MUSCULOSKELETAL: Extremities without clubbing, cyanosis, or edema. No obvious deformities. NEUROLOGICAL: Awake and alert. No obvious cranial nerve deficits. Motor grossly within normal limits. Five out of 5 muscle strength in the arms and legs. Normal speech. PSYCHIATRIC: Appropriate mood and affect; insight and judgment normal. A/P Assessment and Plan 57 YOWM with MS, DM, and HLD presented with increasing lower extremity weakness and dependence on his who feels she can no longer provide for him. He also had episode of melena and was found to have a positive Hemoccult in the ED with associated anemia. Microcytic anemia secondary to likely GI bleed from cecal mass Status post GI and hematology consultation, status post EGD and colonoscopy 12/19. Showed significant esophagitis with small ulcer in the e.g. junction, duodenal ulcer , secondary to steroid use. Also found to have a large circumferential mass in the cecum to the ascending colon, follow-up biopsy results. No active bleeding, f/u CEA, no NSAIDS, continue protonix Colonic mass-status post colonoscopy, showed large circumferential mass in the cecum to the ascending colon. CT scan of the abdomen reviewed, benign. General surgery consulted, for endoscopic resection on Tuesday. Multiple sclerosis exacerbation - Pt recently completed a course of IV steroids within the last couple weeks, neurology following, MRI brain with chronic enhancement consistent with MS, T spine negative and cervical spine with faint enhancement, Heme was consulted for plasmapheresis which is tentatively planned after surgery, IR consulted for Vas-Cath placement Generalized weakness and debility PT consulted Case management consulted for d/c needs DM 2 Pt's states he has never formally been diagnosed with DM yet he is on metformin and glipizide A1c elevated at 8.3, on steroids, continue NovoLog 5 units 3 times daily before meals and SSI, BG's 160s-220s. Add long-acting insulin if needed. HLD Continue home statin HTN BPs stable Continue home Losartan and propranolol DVT prophylaxis: hold chemical anticoagulation for possible bleed, b/l SCDs Discharge Planning Discharge to [facility] once cleared by hematology and general surgery Jeannine Chavez MD Dec 21, 2017 09:16
[2017-12-21] MEDS: methylPREDNISolone SOD SUCC 125 MG/2 ML VIAL IV PUSH SCH ×2 (10:50→10:54)
--- NOTE | 2017-12-21 10:58 | PD.ONC.PN ---
Subjective Subjective Remarks Afebrile overnight. Patient resting in bed. No complaints. denies abdominal pain. Objective Data Date Time Temp Pulse Resp B/P (MAP) Pulse Ox O2 Delivery O2 Flow Rate FiO2 12/21/17 08:00 98.4 84 16 122/65 (84) 93 12/21/17 05:27 97.9 99 17 127/56 (79) 94 12/20/17 23:58 97.4 69 18 124/68 (86) 95 12/20/17 19:00 98.0 67 17 112/64 (80) 98 12/20/17 15:32 98.7 77 19 112/60 (77) 98 12/20/17 11:48 97.7 76 19 106/57 (73) 99 12/21/17 12/21/17 12/21/17 07:00 15:00 23:00 Intake Total 720 ml Balance 720 ml Result Diagram: 12/20/17 0325 12/20/17 0325 Laboratory Results Laboratory Tests Test 12/21/17 08:56 Vitamin B12 Level 321 PG/ML Administered Medications Medications (Trade) Dose Ordered Sig/Karina Route PRN Reason Start Time Stop Time Status Last Admin Dose Admin Sodium Chloride 1,000 ml @ 75 mls/hr [id number] IV 12/17/17 18:23 12/18/17 08:14 Sodium Chloride (NS Flush) 2 ml BID IV FLUSH 12/17/17 21:00 12/21/17 08:56 Pantoprazole Sodium (Protonix Inj) 40 mg Q12H IV PUSH 12/17/17 20:00 12/21/17 08:55 Cholecalciferol (Vitamin D3) 500 units DAILY PO 12/18/17 09:00 12/21/17 08:56 Ascorbic Acid (Vitamin C) 500 mg HS PO 12/17/17 21:00 12/20/17 20:37 Patient Own Medication PT OWN MED:(Dimethyl Fumar... BID PO 12/17/17 21:00 12/20/17 20:33 Patient Own Medication PT OWN MED: OXYBUTY... HS PO 12/17/17 21:00 12/20/17 20:33 Patient Own Medication PT OWN MED: OXYBUTY... DAILY PO 12/18/17 09:00 12/20/17 08:15 Patient Own Medication PT OWN MED: PROPRANO... BID@0600,1200 PO 12/18/17 06:00 12/21/17 05:24 Patient Own Medication PT OWN MED: PROPRANO... DAILY@1800 PO 12/18/17 18:00 12/20/17 17:29 Patient Own Medication PT OWN MED: LOSAR... DAILY PO 12/18/17 09:00 12/20/17 08:15 Patient Own Medication PT OWN MED: MAGNES... DAILY PO 12/18/17 09:00 12/20/17 08:15 Patient Own Medication PT OWN MED: ATORVASTATIN 40 MG PO HS HS PO 12/17/17 22:00 12/20/17 20:32 Insulin Aspart (NovoLOG SUPPLEMENTAL SCALE) 1 ACHS SLIDING SCALE SQ 12/18/17 12:00 12/21/17 08:47 Insulin Aspart (NovoLOG INJ) 5 units TIDAC SQ 12/18/17 12:00 12/21/17 08:46 Iron Sucrose 200 mg/Sodium Chloride 110 ml @ 110 mls/hr DAILY IV 12/20/17 19:30 12/22/17 09:59 12/20/17 20:19 Objective Remarks GENERAL: Middle aged male sitting in bed in nad SKIN: Warm and dry. HEAD: Normocephalic. EYES: No injection or drainage. NECK: Supple, trachea midline. CARDIOVASCULAR: Regular rate and rhythm RESPIRATORY: anterior ma clear GASTROINTESTINAL: Abdomen soft, non-tender, nondistended. EXTREMITIES: No cyanosis NEUROLOGICAL: awake, normal speech. bilateral leg weakness. Assessment/Plan Problem List: (1) Colonic mass ICD Codes: K63.9 - Disease of intestine, unspecified Plan: --colon mass seen during colonoscopy on 12/19, biopsy pathology shows adenocarcinoma. --Large circumferential mass in the junction of the cecum to the ascending colon consistent with cancer biopsy was done (2) Multiple sclerosis exacerbation ICD Codes: G35 - Multiple sclerosis Status: Acute Plan: --hematology consulted to coordinate plasma exchange. --will place on hold until decision is made in terms of colectomy, now with new colon mass. Assessment 57y/o male with MS exacerbation. Hematology consulted for plasma exchange. h/o Hyperglycemia/borderline diabetes. Hypertension. Hyperlipidemia. Iron deficiency anemia. Suspected gastrointestinal bleed. Plan 1. monitor CBC, coags 2. discuss pathology with patient and . discuss plan for surgery or tuesday. Hamida Cueva Dec 21, 2017 10:58
[2017-12-21] MEDS: IRON SUCROSE INJ 200 MG in SODIUM CHLORIDE 0.9% INJ 100 ML IV SCH (11:11)
[2017-12-21] MEDS: LOSARTAN POTASSIUM 50 MG PO SCH (11:13)
--- NOTE | 2017-12-21 11:14 | HHI.PR ---
cc: Wu Lamb MD Subjective Subjective Notes Resting in bed No complaints Objective Vitals/I&O Vital Signs Date Time Temp Pulse Resp B/P (MAP) Pulse Ox O2 Delivery O2 Flow Rate FiO2 12/21/17 08:00 98.4 84 16 122/65 (84) 93 12/20/17 07:16 Room Air 12/19/17 12:21 21 Labs Laboratory Tests Test 12/21/17 08:56 Vitamin B12 Level 321 Radiology Last 48 hours Impressions Catheter Placement X-Ray 12/19/17 1302 Signed Impressions: Service Date/Time: Tuesday, December 19, 2017 13:50 - CONCLUSION: Uncomplicated line placement as above. Natanael Pino MD Thoracic Spine MRI 12/18/17949 Signed Impressions: Service Date/Time: Monday, December 18, 2017 15:16 - CONCLUSION: 1. The thoracic cord has normal signal and morphology throughout. 2. Mild, nonacute appearing superior endplate compression fractures of T3, T12 and L1. 3. No foraminal or spinal stenosis. 4. T9 vertebral body hemangioma. Daren Farr MD Cervical Spine MRI 12/18/1750 Signed Impressions: Service Date/Time: Monday, December 18, 2017 15:16 - CONCLUSION: 1. Faint, chronic appearing T2 signal abnormality throughout most of the central cervical cord. No abnormal enhancement or other evidence of an active/acute lesion. 2. Mild degenerative changes as above. There is no foraminal or spinal stenosis. Daren Farr MD Brain MRI 12/18/1778 Signed Impressions: Service Date/Time: Monday, December 18, 2017 15:16 - CONCLUSION: Moderate signal abnormality in the periventricular white matter with involvement of the corpus callosum in a pattern characteristic of multiple sclerosis. No recent infarct. No abnormal enhancement. Gilbert Turcios MD Cardiovascular: Regular Lungs: Clear Abdomen: Non-distended, Non-tender Extremities: No edema A/P Assessment and Plan 57 year old male with anemia; weakness; new finding of a large circumferential mass in the junction of the cecum to the ascending colon on colonoscopy -Will follow up on biopsy results---still pending -Monitor Hmg -Will likely need laparoscopic assisted colectomy ---plan for Tuesday -Regular diet -Continue to hold anticoagulation Jolene Pelayo/First Renetta FAGAN Dec 21, 2017 11:14
[2017-12-21] MEDS: OXYBUTYNIN 5 MG PO SCH ×2 (11:16→21:00)
[2017-12-21] MEDS: MAGNESIUM OXIDE 400 MG PO SCH (11:20)
[2017-12-21] MEDS: DIMETHYL FUMARATE 240 MG PO SCH ×2 (11:21→21:00)
[2017-12-21 12:00] VITALS: BP 106/62; PULSE 80; RESP 16; TEMP 97.8; O2SAT 96
[2017-12-21 12:54] LABS: BASOPHIL # 0.1 TH/MM3 (0-0.2); BASOPHIL % 0.6 % (0.0-2.0); EOSINOPHIL # 0.1 TH/MM3 (0-0.4); EOSINOPHIL % 1.2 % (0.0-4.0); HEMATOCRIT 29.8 % (39.0-51.0); HEMOGLOBIN 9.3 GM/DL (13.0-17.0); LYMPH % 5.4 % (9.0-44.0); LYMPHOCYTE # 0.5 TH/MM3 (1.0-4.8); MEAN CELL VOLUME 67.9 FL (80.0-100.0); MEAN CORPUSCULAR HEMOGLOBIN 21.2 PG (27.0-34.0); MEAN CORPUSCULAR HGB CONC 31.2 % (32.0-36.0); MEAN PLATELET VOLUME 6.8 FL (7.0-11.0); MONO % 1.9 % (0.0-8.0); MONOCYTE # 0.2 TH/MM3 (0-0.9); NEUT % 90.9 % (16.0-70.0); PLATELET COUNT 314 TH/MM3 (150-450); RED BLOOD COUNT 4.39 MIL/MM3 (4.50-5.90); RED CELL DISTRIBUTION WIDTH 27.2 % (11.6-17.2); WHITE BLOOD COUNT 8.9 TH/MM3 (4.0-11.0)
[2017-12-21 13:38] LABS: BICARBONATE 24.6 MEQ/L (21.0-32.0); CALCIUM 7.7 MG/DL (8.5-10.1); CREATININE 1.2 MG/DL (0.60-1.30)
[2017-12-21 15:44] LABS: OVALOCYTES 1+ (NORMAL)
[2017-12-21 16:00] VITALS: BP 110/66; PULSE 78; RESP 16; TEMP 97.9; O2SAT 96
[2017-12-21 20:00] VITALS: BP 119/66; PULSE 100; RESP 18; TEMP 99.2; O2SAT 95
[2017-12-21] MEDS: ATORVASTATIN 40 MG PO SCH (21:00)
[2017-12-21] MEDS: MAGNESIUM HYDROXIDE SUSP 30 ML CUP PO PRN (21:15)
[2017-12-21] MEDS: ASCORBIC ACID 500 MG TAB PO SCH (21:15)
[2017-12-21 23:45] VITALS: BP 114/72; PULSE 102; RESP 18; TEMP 97.7; O2SAT 95
[2017-12-22] MEDS: PROPRANOLOL 20 MG PO SCH ×3 (05:30→18:26)
[2017-12-22 07:26] VITALS: BP 122/73; PULSE 92; RESP 18; TEMP 98.1; O2SAT 95
[2017-12-22] MEDS: FAMOTIDINE 20 MG/2 ML VIAL IV PUSH SCH (08:22)
[2017-12-22] MEDS: methylPREDNISolone SOD SUCC 125 MG/2 ML VIAL IV PUSH SCH (08:23)
[2017-12-22] MEDS: PANTOPRAZOLE SODIUM 40 MG VIAL IV PUSH SCH ×2 (08:28→20:31)
[2017-12-22] MEDS: INSULIN ASPART 1,000 UNITS/10 ML VIAL SQ SCH ×3 (08:31→18:26)
[2017-12-22] MEDS: INSULIN ASPART SUPPLEMENTAL SCALE SQ SCH ×4 (08:31→21:14)
[2017-12-22] MEDS: IRON SUCROSE INJ 200 MG in SODIUM CHLORIDE 0.9% INJ 100 ML IV SCH (08:31)
[2017-12-22] MEDS: SODIUM CHLORIDE 0.9% FLUSH 10 ML FLUSH IV FLUSH SCH ×2 (08:32→20:31)
[2017-12-22] MEDS: CHOLECALCIFEROL (VIT D3) 1000 UNIT TAB PO SCH (08:33)
[2017-12-22] MEDS: CYANOCOBALAMIN 1,000 MCG TAB PO SCH (08:34)
[2017-12-22] MEDS: DIMETHYL FUMARATE 240 MG PO SCH ×2 (08:34→21:18)
[2017-12-22] MEDS: OXYBUTYNIN 5 MG PO SCH ×2 (08:36→21:17)
[2017-12-22] MEDS: LOSARTAN POTASSIUM 50 MG PO SCH (08:37)
[2017-12-22] MEDS: MAGNESIUM OXIDE 400 MG PO SCH (08:42)
[2017-12-22 09:19] LABS: AUTOMATED NEUTROPHIL # 9.9 TH/MM3 (1.8-7.7); BASOPHIL % 0.2 % (0.0-2.0); EOSINOPHIL % 0.1 % (0.0-4.0); HEMATOCRIT 27.5 % (39.0-51.0); HEMOGLOBIN 8.6 GM/DL (13.0-17.0); LYMPH % 10.6 % (9.0-44.0); LYMPHOCYTE # 1.3 TH/MM3 (1.0-4.8); MEAN CELL VOLUME 68.6 FL (80.0-100.0); MEAN CORPUSCULAR HEMOGLOBIN 21.4 PG (27.0-34.0); MEAN CORPUSCULAR HGB CONC 31.2 % (32.0-36.0); MONO % 5.6 % (0.0-8.0); MONOCYTE # 0.7 TH/MM3 (0-0.9); NEUT % 83.5 % (16.0-70.0); PLATELET COUNT 313 TH/MM3 (150-450); RED BLOOD COUNT 4.01 MIL/MM3 (4.50-5.90); RED CELL DISTRIBUTION WIDTH 27.1 % (11.6-17.2); WHITE BLOOD COUNT 11.9 TH/MM3 (4.0-11.0)
[2017-12-22 09:56] LABS: BICARBONATE 25.6 MEQ/L (21.0-32.0); CALCIUM 8.2 MG/DL (8.5-10.1); CREATININE 1.16 MG/DL (0.60-1.30)
[2017-12-22 10:17] LABS: OVALOCYTES 1+ (NORMAL)
[2017-12-22 11:30] VITALS: BP 119/66; PULSE 94; RESP 18; TEMP 97.8; O2SAT 94
--- NOTE | 2017-12-22 13:09 | HHI.PR ---
cc: Wu Lamb MD Subjective Subjective Notes In good spirits Sister in law visiting Objective Vitals/I&O Vital Signs Date Time Temp Pulse Resp B/P (MAP) Pulse Ox O2 Delivery O2 Flow Rate FiO2 12/22/17 11:30 97.8 94 18 119/66 (83) 94 12/22/17 07:00 Room Air 12/19/17 12:21 21 Labs Laboratory Tests Test 12/22/17 08:49 White Blood Count 11.9 Red Blood Count 4.01 Hemoglobin 8.6 Hematocrit 27.5 Mean Corpuscular Volume 68.6 Mean Corpuscular Hemoglobin 21.4 Mean Corpuscular Hemoglobin Concent 31.2 Red Cell Distribution Width 27.1 Platelet Count 313 Mean Platelet Volume 7.0 Neutrophils (%) (Auto) 83.5 Lymphocytes (%) (Auto) 10.6 Monocytes (%) (Auto) 5.6 Eosinophils (%) (Auto) 0.1 Basophils (%) (Auto) 0.2 Neutrophils # (Auto) 9.9 Lymphocytes # (Auto) 1.3 Monocytes # (Auto) 0.7 Eosinophils # (Auto) 0.0 Basophils # (Auto) 0.0 CBC Comment AUTO DIFF Differential Comment AUTO DIFF CONFIRMED Ovalocytes 1+ Blood Urea Nitrogen 17 Creatinine 1.16 Random Glucose 249 Calcium Level 8.2 Sodium Level 139 Potassium Level 3.9 Chloride Level 104 Carbon Dioxide Level 25.6 Anion Gap 9 Estimat Glomerular Filtration Rate 65 Radiology Last 48 hours Impressions Catheter Placement X-Ray 12/19/17 1302 Signed Impressions: Service Date/Time: Tuesday, December 19, 2017 13:50 - CONCLUSION: Uncomplicated line placement as above. Natanael Pino MD Thoracic Spine MRI 12/18/17 0932 Signed Impressions: Service Date/Time: Monday, December 18, 2017 15:16 - CONCLUSION: 1. The thoracic cord has normal signal and morphology throughout. 2. Mild, nonacute appearing superior endplate compression fractures of T3, T12 and L1. 3. No foraminal or spinal stenosis. 4. T9 vertebral body hemangioma. Daren Farr MD Cervical Spine MRI 12/18/17 0950 Signed Impressions: Service Date/Time: Monday, December 18, 2017 15:16 - CONCLUSION: 1. Faint, chronic appearing T2 signal abnormality throughout most of the central cervical cord. No abnormal enhancement or other evidence of an active/acute lesion. 2. Mild degenerative changes as above. There is no foraminal or spinal stenosis. Daren Farr MD Brain MRI 12/18/17 0950 Signed Impressions: Service Date/Time: Monday, December 18, 2017 15:16 - CONCLUSION: Moderate signal abnormality in the periventricular white matter with involvement of the corpus callosum in a pattern characteristic of multiple sclerosis. No recent infarct. No abnormal enhancement. Gilbert Turcios MD Cardiovascular: Regular Lungs: Clear Abdomen: Non-distended, Non-tender Extremities: No edema A/P Assessment and Plan 57 year old male with anemia; weakness; new finding of a large circumferential mass in the junction of the cecum to the ascending colon on colonoscopy -Pathology confirms adenocarcinoma -Monitor Hmg -Plan for lap assisted colectomy tomorrow -Obtain consents -Clear liquids; NPO after MN -Continue to hold anticoagulation Attending Statement The exam, history, and the medical decision-making described in the above note were completed with the assistance of the mid-level provider. I reviewed and agree with the findings presented. I attest that I had a [id number] encounter with the patient on the same day, and personally performed and documented my assessment and findings in the medical record. Patient with lower GI bleed, will need lap assisted right hemicolectomy, possible open AF, VSS Abdomen soft, non-tender plan for surgery later this week Jolene Pelayo/Salesperson [employer] Dec 22, 2017 13:09 Wu Lamb MD Dec 27, 2017 10:38
[2017-12-22 15:40] VITALS: BP 100/61; PULSE 65; RESP 18; TEMP 97.6; O2SAT 95
--- NOTE | 2017-12-22 15:53 | HHI.PR ---
Subjective Remarks Patient is in bed denies having any pain in his belly. Denies any nausea or vomiting no diarrhea or constipation. Denies chest pain or shortness of breath. Plan for surgery tomorrow morning. Objective Vitals Vital Signs Date Time Temp Pulse Resp B/P (MAP) Pulse Ox O2 Delivery O2 Flow Rate FiO2 12/22/17 15:40 97.6 65 18 100/61 (74) 95 12/22/17 11:30 97.8 94 18 119/66 (83) 94 12/22/17 07:26 98.1 92 18 122/73 (89) 95 12/22/17 07:00 Room Air 12/21/17 23:45 97.7 102 18 114/72 (86) 95 12/21/17 20:00 99.2 100 18 119/66 (83) 95 12/21/17 16:00 97.9 78 16 110/66 (81) 96 I/O 12/21/17 12/21/17 12/21/17 12/22/17 12/22/17 12/22/17 06:59 14:59 22:59 06:59 14:59 22:59 Intake Total 720 ml 600 ml 640 ml 970 ml Output Total 600 ml Balance 720 ml 600 ml 40 ml 970 ml Intake Oral 720 ml 600 ml 640 ml 970 ml Output Urine Total 600 ml # Voids 6 3 2 3 # Bowel Movements 0 0 0 Result Diagram: 12/22/17 0849 12/22/17 0849 Objective Remarks GENERAL: 57 yo male, in the chair appears in nad. CARDIOVASCULAR: Regular rate and rhythm. RESPIRATORY: No accessory muscle use. Clear to auscultation. Breath sounds equal bilaterally. GASTROINTESTINAL: Abdomen soft, non-tender, nondistended. Hepatic and splenic margins not palpable. MUSCULOSKELETAL: Extremities without clubbing, cyanosis, or edema. No obvious deformities. NEUROLOGICAL: Awake and alert. No obvious cranial nerve deficits. Motor grossly within normal limits. Five out of 5 muscle strength in the arms and legs. Normal speech. PSYCHIATRIC: Appropriate mood and affect; insight and judgment normal. A/P Assessment and Plan 57 YOWM with MS, DM, and HLD presented with increasing lower extremity weakness and dependence on his who feels she can no longer provide for him. He also had episode of melena and was found to have a positive Hemoccult in the ED with associated anemia. Microcytic anemia secondary to likely GI bleed from cecal mass Status post GI and hematology consultation, status post EGD and colonoscopy 12/19. Showed significant esophagitis with small ulcer in the e.g. junction, duodenal ulcer , secondary to steroid use. Also found to have a large circumferential mass in the cecum to the ascending colon, follow-up biopsy results. No active bleeding, f/u CEA, no NSAIDS, continue protonix Colonic mass-status post colonoscopy, showed large circumferential mass in the cecum to the ascending colon. CT scan of the abdomen reviewed, benign. General surgery consulted, for endoscopic resection on Tuesday. Multiple sclerosis exacerbation - Pt recently completed a course of IV steroids within the last couple weeks, neurology following, MRI brain with chronic enhancement consistent with MS, T spine negative and cervical spine with faint enhancement, Heme was consulted for plasmapheresis which is tentatively planned after surgery, IR consulted for Vas-Cath placement Generalized weakness and debility PT consulted Case management consulted for d/c needs DM 2 Pt's states he has never formally been diagnosed with DM yet he is on metformin and glipizide A1c elevated at 8.3, on steroids, continue NovoLog 5 units 3 times daily before meals and SSI, BG's 160s-220s. Add long-acting insulin if needed. HLD Continue home statin HTN BPs stable Continue home Losartan and propranolol DVT prophylaxis: hold chemical anticoagulation for possible bleed, b/l SCDs Discharge Planning Discharge to [place] once cleared by hematology and general surgery Plan for surgery 12/23/17 Jeannine Chavez MD Dec 22, 2017 15:53
[2017-12-22] MEDS: SODIUM CHLOR 0.45% 1000 ML INJ 1,000 ML IV SCH (18:23)
--- NOTE | 2017-12-22 19:22 | PD.ONC.PN ---
Subjective Subjective Remarks sitting up in bed denies any pain no bleeding eating tolerating iron infusions Objective Data Date Time Temp Pulse Resp B/P (MAP) Pulse Ox O2 Delivery O2 Flow Rate FiO2 12/22/17 15:40 97.6 65 18 100/61 (74) 95 12/22/17 11:30 97.8 94 18 119/66 (83) 94 12/22/17 07:26 98.1 92 18 122/73 (89) 95 12/22/17 07:00 Room Air 12/21/17 23:45 97.7 102 18 114/72 (86) 95 12/21/17 20:00 99.2 100 18 119/66 (83) 95 12/22/17 12/22/17 12/22/17 07:00 15:00 23:00 Intake Total 640 ml 970 ml Output Total 600 ml Balance 40 ml 970 ml Result Diagram: 12/22/17 0849 12/22/17 0849 Laboratory Results Laboratory Tests Test 12/22/17 08:49 White Blood Count 11.9 TH/MM3 Red Blood Count 4.01 MIL/MM3 Hemoglobin 8.6 GM/DL Hematocrit 27.5 % Mean Corpuscular Volume 68.6 FL Mean Corpuscular Hemoglobin 21.4 PG Mean Corpuscular Hemoglobin Concent 31.2 % Red Cell Distribution Width 27.1 % Platelet Count 313 TH/MM3 Mean Platelet Volume 7.0 FL Neutrophils (%) (Auto) 83.5 % Lymphocytes (%) (Auto) 10.6 % Monocytes (%) (Auto) 5.6 % Eosinophils (%) (Auto) 0.1 % Basophils (%) (Auto) 0.2 % Neutrophils # (Auto) 9.9 TH/MM3 Lymphocytes # (Auto) 1.3 TH/MM3 Monocytes # (Auto) 0.7 TH/MM3 Eosinophils # (Auto) 0.0 TH/MM3 Basophils # (Auto) 0.0 TH/MM3 CBC Comment AUTO DIFF Differential Comment AUTO DIFF CONFIRMED Ovalocytes 1+ Blood Urea Nitrogen 17 MG/DL Creatinine 1.16 MG/DL Random Glucose 249 MG/DL Calcium Level 8.2 MG/DL Sodium Level 139 MEQ/L Potassium Level 3.9 MEQ/L Chloride Level 104 MEQ/L Carbon Dioxide Level 25.6 MEQ/L Anion Gap 9 MEQ/L Estimat Glomerular Filtration Rate 65 ML/MIN Administered Medications Medications (Trade) Dose Ordered Sig/Karina Route PRN Reason Start Time Stop Time Status Last Admin Dose Admin Sodium Chloride 1,000 ml @ 75 mls/hr [id number] IV 12/17/17 18:23 12/18/17 08:14 Sodium Chloride (NS Flush) 2 ml BID IV FLUSH 12/17/17 21:00 12/22/17 08:32 Magnesium Hydroxide (Milk Of Magnesia Liq) 30 ml Q12H PRN PO Mild constipation 12/17/17 18:30 12/21/17 21:15 Pantoprazole Sodium (Protonix Inj) 40 mg Q12H IV PUSH 12/17/17 20:00 12/22/17 08:28 Cholecalciferol (Vitamin D3) 500 units DAILY PO 12/18/17 09:00 12/22/17 08:33 Ascorbic Acid (Vitamin C) 500 mg HS PO 12/17/17 21:00 12/21/17 21:15 Patient Own Medication PT OWN MED:(Dimethyl Fumar... BID PO 12/17/17 21:00 12/22/17 08:34 Patient Own Medication PT OWN MED: OXYBUTY... HS PO 12/17/17 21:00 12/21/17 21:00 Patient Own Medication PT OWN MED: OXYBUTY... DAILY PO 12/18/17 09:00 12/22/17 08:36 Patient Own Medication PT OWN MED: PROPRANO... BID@0600,1200 PO 12/18/17 06:00 12/22/17 12:00 Patient Own Medication PT OWN MED: PROPRANO... DAILY@1800 PO 12/18/17 18:00 12/22/17 18:26 Patient Own Medication PT OWN MED: LOSAR... DAILY PO 12/18/17 09:00 12/22/17 08:37 Patient Own Medication PT OWN MED: MAGNES... DAILY PO 12/18/17 09:00 12/22/17 08:42 Patient Own Medication PT OWN MED: ATORVASTATIN 40 MG PO HS HS PO 12/17/17 22:00 12/21/17 21:00 Insulin Aspart (NovoLOG SUPPLEMENTAL SCALE) 1 ACHS SLIDING SCALE SQ 12/18/17 12:00 12/22/17 12:00 Insulin Aspart (NovoLOG INJ) 5 units TIDAC SQ 12/18/17 12:00 12/22/17 18:26 Methylprednisolone Sodium Succinate (SoluMEDROL INJ) 125 mg EVERY OTHER DAY IV PUSH 12/19/17 09:00 12/31/17 09:01 12/21/17 10:50 Cyanocobalamin (Vitamin B12) 1,000 mcg DAILY PO 12/22/17 09:00 12/22/17 08:34 Objective Remarks GENERAL:nad SKIN: Warm and dry. NECK: Supple, trachea midline. No JVD or lymphadenopathy. LYMPHATIC: No adenopathy. CARDIOVASCULAR: Regular rate and rhythm without murmurs. RESPIRATORY: Breath sounds equal bilaterally. No accessory muscle use. GASTROINTESTINAL: Abdomen soft, non-tender, nondistended. EXTREMITIES: No cyanosis, or edema. Assessment/Plan Problem List: (1) Colonic mass ICD Codes: K63.9 - Disease of intestine, unspecified Plan: --colon mass seen during colonoscopy on 12/19, biopsy pathology shows adenocarcinoma. --Large circumferential mass in the junction of the cecum to the ascending colon consistent with cancer biopsy was done (2) Multiple sclerosis exacerbation ICD Codes: G35 - Multiple sclerosis Status: Acute Plan: --hematology consulted to coordinate plasma exchange. --will place on hold until decision is made in terms of colectomy, now with new colon mass. Assessment 57y/o male with MS exacerbation. Hematology consulted for plasma exchange. h/o Hyperglycemia/borderline diabetes. Hypertension. Hyperlipidemia. Iron deficiency anemia. Suspected gastrointestinal bleed. Plan 1. Colon adenocarcinoma: - Surgery on Tuesday - Further recs once path results are available 2. Iron deficiency anemia - daily iron infusions X 3 3. MS - plasma exchange on hold Santi Mitchell MD Dec 22, 2017 19:22
[2017-12-22 20:00] VITALS: BP 110/64; PULSE 62; RESP 18; TEMP 98.1; O2SAT 95
[2017-12-22] MEDS: ASCORBIC ACID 500 MG TAB PO SCH (21:15)
[2017-12-22] MEDS: ATORVASTATIN 40 MG PO SCH (21:17)
[2017-12-23] VITALS: BP 104/66; PULSE 70; RESP 18; TEMP 98.3; O2SAT 95
[2017-12-23] MEDS ORDERED: LACTATED RINGER'S 1000 ML IV PRN (01:30)
[2017-12-23] MEDS ORDERED: CHLORHEXIDINE GLUCONATE 2 % 1 PACK (2 CLOTHS) TOPICAL PRN (01:30)
[2017-12-23] MEDS ORDERED: SODIUM CHLORID 0.9% 500 ML IV PRN (01:30)
[2017-12-23] MEDS ORDERED: POVIDONE IODINE 5% (ANTISEPSIS KIT) 4 APPLICATIONS EACH NARE PRN (01:30)
[2017-12-23 04:00] VITALS: BP 92/52; PULSE 70; RESP 18; TEMP 98.3; O2SAT 97
[2017-12-23] MEDS: PROPRANOLOL 20 MG PO SCH ×2 (04:30→16:58)
[2017-12-23 08:00] VITALS: BP 118/67; PULSE 70; RESP 16; TEMP 97.8; O2SAT 96
[2017-12-23] MEDS: INSULIN ASPART 1,000 UNITS/10 ML VIAL SQ SCH ×2 (08:00→16:58)
[2017-12-23] MEDS: INSULIN ASPART SUPPLEMENTAL SCALE SQ SCH ×3 (08:00→14:56)
[2017-12-23] MEDS: PANTOPRAZOLE SODIUM 40 MG VIAL IV PUSH SCH ×2 (08:14→20:07)
[2017-12-23] MEDS: FAMOTIDINE 20 MG/2 ML VIAL IV PUSH SCH (08:14)
[2017-12-23] MEDS: SODIUM CHLOR 0.45% 1000 ML INJ 1,000 ML IV SCH ×2 (08:21→20:14)
[2017-12-23 08:24] LABS: AUTOMATED NEUTROPHIL # 9.8 TH/MM3 (1.8-7.7); BASOPHIL % 0.4 % (0.0-2.0); EOSINOPHIL # 0.2 TH/MM3 (0-0.4); EOSINOPHIL % 1.4 % (0.0-4.0); HEMOGLOBIN 8.7 GM/DL (13.0-17.0); MEAN CORPUSCULAR HEMOGLOBIN 21.4 PG (27.0-34.0); MEAN PLATELET VOLUME 6.9 FL (7.0-11.0); MONO % 4.8 % (0.0-8.0); MONOCYTE # 0.6 TH/MM3 (0-0.9); NEUT % 84.4 % (16.0-70.0); PLATELET COUNT 322 TH/MM3 (150-450); RED BLOOD COUNT 4.06 MIL/MM3 (4.50-5.90); RED CELL DISTRIBUTION WIDTH 27.9 % (11.6-17.2); WHITE BLOOD COUNT 11.6 TH/MM3 (4.0-11.0)
[2017-12-23] MEDS: ALBUMIN 5% INJ 3,500 ML IV SCH (08:28)
[2017-12-23] MEDS: methylPREDNISolone SOD SUCC 125 MG/2 ML VIAL IV PUSH SCH (08:28)
[2017-12-23] MEDS: DIMETHYL FUMARATE 240 MG PO SCH ×2 (08:29→20:06)
[2017-12-23] MEDS: CALCIUM GLUCONATE IV SCH (08:29)
[2017-12-23] MEDS: SODIUM CHLOR 0.9% IV SCH (08:29)
[2017-12-23] MEDS: SODIUM CHLORIDE 0.9% FLUSH 10 ML FLUSH IV FLUSH SCH ×2 (08:29→20:08)
[2017-12-23] MEDS: ANTICOAGULANT CITRATE DEXTROSE SOLN-A 1L OTHER SCH (08:29)
[2017-12-23] MEDS: CHOLECALCIFEROL (VIT D3) 1000 UNIT TAB PO SCH (08:30)
[2017-12-23] MEDS: OXYBUTYNIN 5 MG PO SCH ×2 (08:30→20:07)
[2017-12-23] MEDS: LOSARTAN POTASSIUM 50 MG PO SCH (08:30)
[2017-12-23] MEDS: CYANOCOBALAMIN 1,000 MCG TAB PO SCH (08:30)
[2017-12-23] MEDS: MAGNESIUM OXIDE 400 MG PO SCH (08:30)
[2017-12-23 09:28] LABS: OVALOCYTES 1+ (NORMAL)
[2017-12-23] MEDS ORDERED: HYDROmorphone HCL PF 2 MG/ML VIAL ONE (10:04)
[2017-12-23] MEDS ORDERED: ACETAMINOPHEN 1000 MG/100 ML 100 ML IV ONE (10:04)
[2017-12-23] MEDS ORDERED: BUPIVACAINE LIPOSOME PF 1.3% 20 ML VIAL ONE (11:00)
[2017-12-23] MEDS ORDERED: ceFAZolin 2 GM PREMIX 50 ML ONE (11:26)
[2017-12-23] MEDS ORDERED: metroNIDAZOLE 500 MG INJ 100 ML IV ONE (11:26)
[2017-12-23] MEDS ORDERED: LIDOCAINE HCL 1% PF 5 ML SYRINGE OTHER ONE (12:00)
[2017-12-23] MEDS ORDERED: DEXAMETHASONE SOD PHOS 4 MG/ML VIAL IV ONE (12:00)
[2017-12-23] MEDS ORDERED: ROCURONIUM INJ 50 MG/5 ML SYRINGE IV PUSH ONE (12:00)
[2017-12-23] MEDS ORDERED: NEOSTIGMINE 5 MG/5 ML SYRINGE IV PUSH ONE (12:00)
[2017-12-23] MEDS ORDERED: GLYCOPYRROLATE 1 MG/5 ML SYRINGE IV PUSH ONE (12:00)
[2017-12-23] MEDS ORDERED: PROPOFOL 200 MG/20 ML AMP IV ONE (12:00)
[2017-12-23] MEDS ORDERED: ePHEDrine/NS 25 MG/5 ML SYRINGE IV ONE (12:00)
[2017-12-23] MEDS ORDERED: ONDANSETRON HCL 4 MG/2 ML VIAL IV ONE (12:00)
[2017-12-23] MEDS ORDERED: LACTATED RINGER'S 1000 ML INJ 1,000 ML IV ONE (12:00)
[2017-12-23] MEDS ORDERED: SUGAMMADEX SODIUM 200 MG/2 ML VIAL IV PUSH ONE (12:12)
[2017-12-23] MEDS ORDERED: BENZOCAINE 20% ORAL SPR 60 ML CAN MT PRN (14:15)
[2017-12-23] MEDS ORDERED: ACETAMINOPHEN/HYDROcodone 325 MG/5 MG TAB PO PRN (14:15)
[2017-12-23] MEDS: ACETAMINOPHEN 1000 MG/100 ML 100 ML IV SCH ×2 (14:15→20:08)
[2017-12-23 14:20] LABS: AMORPHOUS SEDIMENT, URINE RARE; BACTERIA, URINE MANY /hpf; BILIRUBIN, URINE NEG (NEG); BLOOD, URINE SMALL (NEG); GLUCOSE,URINE NEG (NEG); HYALINE CAST, URINE 49 /lpf (RARE); KETONE, URINE 40 mg/dL (NEG); MUCUS URINE MANY /lpf (OCC); NITRITE,URINE NEG (NEG); SQUAMOUS EPITHELIAL CELL URINE 4 /hpf (0-5); URINE COLOR YELLOW (YELLW/STRAW); URINE LEUKOCYTE ESTERASE LARGE (NEG)
[2017-12-23] MEDS ORDERED: DO NOT ADM ANY ANTICOAGULANT DRUGS PRN (14:25)
[2017-12-23] MEDS ORDERED: MIDAZOLAM HCL 2 MG/2 ML VIAL ONE (14:38)
[2017-12-23] MEDS ORDERED: INSULIN HUMAN REGULAR 1,000 UNITS/10 ML VIAL IV PUSH ONE (15:30)
--- NOTE | 2017-12-23 15:30 | HHI.PR ---
Subjective Remarks Seen after he returned from surgery . Pain is fairly controlled at the surgical site. No n/v/d/c. No fever or chills. Family at bedside very supportive. Objective Vitals Vital Signs Date Time Temp Pulse Resp B/P (MAP) Pulse Ox O2 Delivery O2 Flow Rate FiO2 12/23/17 08:00 96 Room Air 12/23/17 08:00 97.8 70 16 118/67 (84) 96 12/23/17 04:00 98.3 70 18 92/52 (65) 97 12/23/17 00:00 98.3 70 18 104/66 (79) 95 12/22/17 20:00 98.1 62 18 110/64 (79) 95 12/22/17 15:40 97.6 65 18 100/61 (74) 95 I/O 12/22/17 12/22/17 12/22/17 12/23/17 12/23/17 12/23/17 07:00 15:00 23:00 07:00 15:00 23:00 Intake Total 640 ml 970 ml 240 ml 1200 ml Output Total 600 ml 300 ml 1100 ml Balance 40 ml 970 ml -60 ml 100 ml Intake Oral 640 ml 970 ml 240 ml Other 1200 ml Output Urine Total 600 ml 300 ml 800 ml Estimated Blood Loss 300 ml # Voids 2 3 4 # Bowel Movements 0 0 Result Diagram: 12/23/17 0725 12/22/17 0849 Imaging Last Impressions Catheter Placement X-Ray 12/19/17 1302 Signed Impressions: Service Date/Time: Tuesday, December 19, 2017 13:50 - CONCLUSION: Uncomplicated line placement as above. Natanael Pino MD Abdomen/Pelvis CT 12/19/17 0000 Signed Impressions: Service Date/Time: Tuesday, December 19, 2017 21:45 - CONCLUSION: 1. No acute findings on abdomen and pelvic CT. The bladder is mildly this ended with mild bladder wall thickening. Fatty liver. Small hiatal hernia. Gilbert Turcios MD Thoracic Spine MRI 12/18/17 0950 Signed Impressions: Service Date/Time: Monday, December 18, 2017 15:16 - CONCLUSION: 1. The thoracic cord has normal signal and morphology throughout. 2. Mild, nonacute appearing superior endplate compression fractures of T3, T12 and L1. 3. No foraminal or spinal stenosis. 4. T9 vertebral body hemangioma. Daren Farr MD Cervical Spine MRI 12/18/17 4054 Signed Impressions: Service Date/Time: Monday, December 18, 2017 15:16 - CONCLUSION: 1. Faint, chronic appearing T2 signal abnormality throughout most of the central cervical cord. No abnormal enhancement or other evidence of an active/acute lesion. 2. Mild degenerative changes as above. There is no foraminal or spinal stenosis. Daren Farr MD Brain MRI 12/18/17 0258 Signed Impressions: Service Date/Time: Monday, December 18, 2017 15:16 - CONCLUSION: Moderate signal abnormality in the periventricular white matter with involvement of the corpus callosum in a pattern characteristic of multiple sclerosis. No recent infarct. No abnormal enhancement. Gilbert Turcios MD Chest X-Ray 12/17/17 5169 Signed Impressions: Service Date/Time: Sunday, December 17, 2017 15:23 - CONCLUSION: Cardiomegaly. Daren Escamilla MD Objective Remarks GENERAL: 57 yo male, in the chair appears in nad. CARDIOVASCULAR: Regular rate and rhythm. RESPIRATORY: No accessory muscle use. Clear to auscultation. Breath sounds equal bilaterally. GASTROINTESTINAL: Abdomen soft, non-tender, nondistended. Hepatic and splenic margins not palpable. MUSCULOSKELETAL: Extremities without clubbing, cyanosis, or edema. No obvious deformities. NEUROLOGICAL: Awake and alert. No obvious cranial nerve deficits. Motor grossly within normal limits. Five out of 5 muscle strength in the arms and legs. Normal speech. PSYCHIATRIC: Appropriate mood and affect; insight and judgment normal. Procedures s/p endoscopic resection on 12/23/17 A/P Assessment and Plan 57 YOWM with MS, DM, and HLD presented with increasing lower extremity weakness and dependence on his who feels she can no longer provide for him. He also had episode of melena and was found to have a positive Hemoccult in the ED with associated anemia. Microcytic anemia secondary to likely GI bleed from cecal mass Status post GI and hematology consultation, status post EGD and colonoscopy 12/19. Showed significant esophagitis with small ulcer in the e.g. junction, duodenal ulcer , secondary to steroid use. Also found to have a large circumferential mass in the cecum to the ascending colon, follow-up biopsy results. No active bleeding, f/u CEA, no NSAIDS, continue protonix S/P surgery 12/23/17 Colonic mass-status post colonoscopy, showed large circumferential mass in the cecum to the ascending colon. CT scan of the abdomen reviewed, benign. General surgery consulted, s/p endoscopic resection on 12/23/17 Multiple sclerosis exacerbation - Pt recently completed a course of IV steroids within the last couple weeks, neurology following, MRI brain with chronic enhancement consistent with MS, T spine negative and cervical spine with faint enhancement, Heme was consulted for plasmapheresis which is tentatively planned after surgery, IR consulted for Vas-Cath placement Generalized weakness and debility PT consulted Case management consulted for d/c needs DM 2 Pt's states he has never formally been diagnosed with DM yet he is on metformin and glipizide A1c elevated at 8.3, on steroids, continue NovoLog 5 units 3 times daily before meals and SSI, BG's 160s-220s. Add long-acting insulin if needed. HLD Continue home statin HTN BPs stable Continue home Losartan and propranolol DVT prophylaxis: hold chemical anticoagulation for possible bleed, b/l SCDs Discharge Planning Discharge to [place] once cleared by hematology and general surgery S/p surgery 12/23/17 Jeannine Chavez MD Dec 23, 2017 15:30
[2017-12-23 16:00] VITALS: BP_SYST 121; BP_SYST 131; BP_DIAS 63; BP_DIAS 83; PULSE 109; PULSE 73; RESP 16; TEMP 97.9; TEMP 98.5; O2SAT 94; O2SAT 99
[2017-12-23 19:18] VITALS: BP 160/90; PULSE 115; RESP 18; TEMP 98.6; O2SAT 93
--- NOTE | 2017-12-23 19:24 | HHI.PR ---
Review/Management Diagnosis Multiple sclerosis Colon Ca Plan His MS is stable at present. Continue to hold off on plasmapheresis. If he does not improve in his strength over the next week or so, consider pheresis Diagnosis/Plan: Subjective Subjective Comments s/p surgery for colon tumor No new neurologic sx Active Medications Current Medications Medications (Trade) Dose Ordered Sig/Karina Route Start Time Stop Time Status Last Admin (D50w (Vial) Inj) 50 ml UNSCH PRN IV PUSH 12/17/17 18:30 (Glucagon Inj) 1 mg UNSCH PRN OTHER 12/17/17 18:30 Sodium Chloride 1,000 ml @ 75 mls/hr [id number] IV 12/17/17 18:23 12/23/17 08:21 (NS Flush) 2 ml UNSCH PRN IV FLUSH 12/17/17 18:30 (NS Flush) 2 ml BID IV FLUSH 12/17/17 21:00 12/23/17 08:29 (Tylenol) 650 mg Q4H PRN PO 12/17/17 18:30 (Zofran Inj) 4 mg Q6H PRN IVP 12/17/17 18:30 (Narcan Inj) 0.4 mg UNSCH PRN IV PUSH 12/17/17 18:30 (Milk Of Magnesia Liq) 30 ml Q12H PRN PO 12/17/17 18:30 12/21/17 21:15 (Senokot) 17.2 mg Q12H PRN PO 12/17/17 18:30 (Dulcolax Supp) 10 mg DAILY PRN RECTAL 12/17/17 18:30 (Lactulose Liq) 30 ml DAILY PRN PO 12/17/17 18:30 (Protonix Inj) 40 mg Q12H IV PUSH 12/17/17 20:00 12/23/17 08:14 (Vitamin D3) 500 units DAILY PO 12/18/17 09:00 12/22/17 08:33 (Vitamin C) 500 mg HS PO 12/17/17 21:00 12/22/17 21:15 Patient Own Medication PT OWN MED:(Dimethyl Fumar... BID PO 12/17/17 21:00 12/22/17 21:18 Patient Own Medication PT OWN MED: OXYBUTY... HS PO 12/17/17 21:00 12/22/17 21:17 Patient Own Medication PT OWN MED: OXYBUTY... DAILY PO 12/18/17 09:00 12/22/17 08:36 Patient Own Medication PT OWN MED: PROPRANO... BID@0600,1200 PO 12/18/17 06:00 12/22/17 12:00 Patient Own Medication PT OWN MED: PROPRANO... DAILY@1800 PO 12/18/17 18:00 12/23/17 16:58 Patient Own Medication PT OWN MED: LOSAR... DAILY PO 12/18/17 09:00 12/22/17 08:37 Patient Own Medication PT OWN MED: MAGNES... DAILY PO 12/18/17 09:00 12/22/17 08:42 Patient Own Medication PT OWN MED: ATORVASTATIN 40 MG PO HS HS PO 12/17/17 22:00 12/22/17 21:17 (Glucotrol) 2.5 mg DAILY@0800,1700 PO 12/18/17 08:00 Future Hold (NovoLOG SUPPLEMENTAL SCALE) 1 ACHS SLIDING SCALE SQ 12/18/17 12:00 12/23/17 14:56 (NovoLOG INJ) 5 units TIDAC SQ 12/18/17 12:00 12/23/17 16:58 Albumin Human 3,500 ml @ 250 mls/hr EVERY OTHER DAY IV 12/19/17 09:00 12/31/17 22:59 (SoluMEDROL INJ) 125 mg EVERY OTHER DAY IV PUSH 12/19/17 09:00 12/31/17 09:01 12/21/17 10:50 (Pepcid Inj) 20 mg EVERY OTHER DAY IV PUSH 12/19/17 09:00 12/31/17 09:01 12/23/17 08:14 (Benadryl Inj) 25 mg UNSCH PRN IV PUSH 12/18/17 15:30 12/31/17 23:59 (Acd Formula Inj) 1,000 ml EVERY OTHER DAY OTHER 12/19/17 09:00 12/31/17 09:01 (Heparin Inj) 1,000 units UNSCH PRN IV FLUSH 12/18/17 15:30 12/31/17 23:59 (Oscal) 500 mg UNSCH PRN PO 12/19/17 09:00 12/31/17 23:59 Calcium Gluconate 3.5 gm/Sodium Chloride 235 ml @ 235 mls/hr EVERY OTHER DAY IV 12/19/17 15:00 12/31/17 09:59 (Vitamin B12) 1,000 mcg DAILY PO 12/22/17 09:00 12/22/17 08:34 Lactated Ringer's 1,000 ml @ 30 mls/hr Q24H PRN IV 12/23/17 01:30 12/26/17 01:29 Sodium Chloride 500 ml @ 30 mls/hr [id number] PRN IV 12/23/17 01:30 12/26/17 01:29 (Betadine 5% Antisepsis Kit) 1 applic AGING ROOM OPERATOR PRN EACH NARE 12/23/17 01:30 12/26/17 01:29 (Chlorhexidine 2% Cloth) 3 pack AGING ROOM OPERATOR PRN TOPICAL 12/23/17 01:30 12/26/17 01:29 (Hurricaine 20% Oral Spr) 1 spray UNSCH X1 PRN MT 12/23/17 14:15 12/26/17 14:14 Cefazolin Sodium 1000 mg/Sodium Chloride 100 ml @ 200 mls/hr Q8H IV 12/23/17 20:00 12/24/17 12:29 Metronidazole 100 ml @ 100 mls/hr Q8H IV 12/23/17 20:00 12/24/17 12:59 ([place] 5-325 Mg) 1 tab Q4H PRN PO 12/23/17 14:15 ([place] 7.5-325 Mg) 1 tab Q4H PRN PO 12/23/17 14:15 Acetaminophen 100 ml @ 400 mls/hr Q6H IV 12/23/17 14:15 12/24/17 08:29 (Morphine Inj) 4 mg Q3H PRN IV PUSH 12/23/17 14:15 (Lovenox Inj) 40 mg Q24H SQ 12/24/17 14:00 Miscellaneous Information ALL NURSING DEPARTME... UNSCH PRN .XX 12/23/17 14:25 12/24/17 14:24 Allergies Allergies Coded Allergies No Known Allergies (Verified Allergy, Unknown, 12/17/17) Exam I&O / VS 12/23/17 12/23/17 12/24/17 15:00 23:00 07:00 Intake Total 1200 ml Output Total 1100 ml 150 ml Balance 100 ml -150 ml Other 1200 ml Output Urine Total 800 ml 150 ml Estimated Blood Loss 300 ml Vital Signs Date Time Temp Pulse Resp B/P (MAP) Pulse Ox O2 Delivery O2 Flow Rate FiO2 12/23/17 16:00 97.9 109 16 121/83 (96) 94 12/23/17 15:30 98.0 98 17 145/85 (105) 100 Nasal Cannula 2 12/23/17 15:15 94 17 147/85 (105) 100 Nasal Cannula 2 12/23/17 15:00 92 17 157/88 (111) 100 Nasal Cannula 2 12/23/17 14:45 88 17 154/82 (106) 100 Nasal Cannula 2 12/23/17 14:30 88 16 172/86 (114) 100 Simple Mask 6 12/23/17 14:20 97.8 86 16 173/91 (118) 100 Simple Mask 6 12/23/17 08:00 96 Room Air 12/23/17 08:00 97.8 70 16 118/67 (84) 96 12/23/17 04:00 98.3 70 18 92/52 (65) 97 12/23/17 00:00 98.3 70 18 104/66 (79) 95 12/22/17 20:00 98.1 62 18 110/64 (79) 95 Respiratory: Lungs CTA, Non-labored respirations, BS equal, Symmetrical expansion Cardiology: Normal rate Musculoskeletal: ROM Exam Comments alert CN--bilateral ESEQUIEL MOTOR 3/5 BUE, 3/5 BLE Objective Micro and Labs Laboratory Tests Test 12/23/17 07:25 12/23/17 13:47 White Blood Count 11.6 Red Blood Count 4.06 Hemoglobin 8.7 Hematocrit 28.0 Mean Corpuscular Volume 69.0 Mean Corpuscular Hemoglobin 21.4 Mean Corpuscular Hemoglobin Concent 31.0 Red Cell Distribution Width 27.9 Platelet Count 322 Mean Platelet Volume 6.9 Neutrophils (%) (Auto) 84.4 Lymphocytes (%) (Auto) 9.0 Monocytes (%) (Auto) 4.8 Eosinophils (%) (Auto) 1.4 Basophils (%) (Auto) 0.4 Neutrophils # (Auto) 9.8 Lymphocytes # (Auto) 1.0 Monocytes # (Auto) 0.6 Eosinophils # (Auto) 0.2 Basophils # (Auto) 0.0 CBC Comment AUTO DIFF Differential Comment AUTO DIFF CONFIRMED Platelet Estimate NORMAL Platelet Morphology Comment NORMAL Spherocytes Ovalocytes 1+ Urine Color YELLOW Urine Turbidity CLOUDY Urine pH 5.0 Urine Specific [place] 1.027 Urine Protein 30 Urine Glucose (UA) NEG Urine Ketones 40 Urine Occult Blood SMALL Urine Nitrite NEG Urine Bilirubin NEG Urine Urobilinogen LESS THAN 2.0 Urine Leukocyte Esterase LARGE Urine RBC 4 Urine WBC 27 Urine Squamous Epithelial Cells 4 Urine Amorphous Sediment RARE Urine Bacteria MANY Urine Hyaline Casts 49 Urine Mucus MANY Microscopic Urinalysis Comment CATH-CULTURE IND Date/Time Source Procedure Growth Status 12/23/17 13:47 Urine Catheterized Urine Urine Culture Pending Received Noah Shafer MD PhD Dec 23, 2017 19:24
[2017-12-23] MEDS: ATORVASTATIN 40 MG PO SCH (20:07)
[2017-12-23] MEDS: metroNIDAZOLE 500 MG INJ 100 ML IV SCH (20:08)
[2017-12-23] MEDS: ASCORBIC ACID 500 MG TAB PO SCH (20:09)
[2017-12-23] MEDS: MORPHINE SULFATE 2 MG/ML SYRINGE IV PUSH PRN (22:26)
[2017-12-24] VITALS (7 sets, daily range): BP systolic 101–128; BP diastolic 59–68; PULSE 69–98; RESP 16–18; TEMP 97.7–98.7; O2SAT 93–97
[2017-12-24] MEDS: ACETAMINOPHEN 1000 MG/100 ML 100 ML IV SCH ×2 (02:10→08:15)
[2017-12-24] MEDS: metroNIDAZOLE 500 MG INJ 100 ML IV SCH ×2 (04:30→12:07)
[2017-12-24] MEDS: ACETAMINOPHEN/HYDROcodone 325 MG/7.5 MG TAB PO PRN ×5 (04:31→21:39)
[2017-12-24] MEDS: PROPRANOLOL 20 MG PO SCH ×3 (05:35→18:00)
[2017-12-24] MEDS: PANTOPRAZOLE SODIUM 40 MG VIAL IV PUSH SCH ×2 (07:59→19:17)
[2017-12-24] MEDS: CYANOCOBALAMIN 1,000 MCG TAB PO SCH (08:00)
[2017-12-24] MEDS: INSULIN ASPART SUPPLEMENTAL SCALE SQ SCH ×4 (08:00→20:05)
[2017-12-24] MEDS: INSULIN ASPART 1,000 UNITS/10 ML VIAL SQ SCH ×3 (08:00→17:00)
[2017-12-24] MEDS: CHOLECALCIFEROL (VIT D3) 1000 UNIT TAB PO SCH (08:00)
[2017-12-24] MEDS: OXYBUTYNIN 5 MG PO SCH ×2 (08:02→19:18)
[2017-12-24] MEDS: MAGNESIUM OXIDE 400 MG PO SCH (08:04)
[2017-12-24] MEDS: LOSARTAN POTASSIUM 50 MG PO SCH (08:05)
[2017-12-24] MEDS: DIMETHYL FUMARATE 240 MG PO SCH ×2 (08:06→19:17)
[2017-12-24] MEDS: SODIUM CHLORIDE 0.9% FLUSH 10 ML FLUSH IV FLUSH SCH ×2 (08:06→19:17)
--- NOTE | 2017-12-24 08:07 | HHI.PR ---
Subjective Remarks The patient is in bed. Says he has more pain today after the surgery. Pain is mainly at the surgical sites. The pain is fairly controlled by medications. Did not pass gas and did not have a bowel movement yet. No fever or chills no nausea vomiting. Denies shortness of breath or cough. Feels tired. Objective Vitals Vital Signs Date Time Temp Pulse Resp B/P (MAP) Pulse Ox O2 Delivery O2 Flow Rate FiO2 12/24/17 06:53 98.1 81 18 115/64 (81) 97 12/24/17 03:40 97.7 96 18 120/63 (82) 94 12/24/17 00:25 97.7 98 18 128/68 (88) 95 12/23/17 20:00 Room Air 12/23/17 19:18 98.6 115 18 160/90 (113) 93 12/23/17 16:00 97.9 109 16 121/83 (96) 94 12/23/17 15:30 98.0 98 17 145/85 (105) 100 Nasal Cannula 2 12/23/17 15:15 94 17 147/85 (105) 100 Nasal Cannula 2 12/23/17 15:00 92 17 157/88 (111) 100 Nasal Cannula 2 12/23/17 14:45 88 17 154/82 (106) 100 Nasal Cannula 2 12/23/17 14:30 88 16 172/86 (114) 100 Simple Mask 6 12/23/17 14:20 97.8 86 16 173/91 (118) 100 Simple Mask 6 I/O 12/23/17 12/23/17 12/23/17 12/24/17 12/24/17 12/24/17 07:00 15:00 23:00 07:00 15:00 23:00 Intake Total 240 ml 1200 ml 480 ml Output Total 300 ml 1100 ml 150 ml 800 ml Balance -60 ml 100 ml -150 ml -320 ml Intake Oral 240 ml 480 ml Other 1200 ml Output Urine Total 300 ml 800 ml 150 ml 800 ml Estimated Blood Loss 300 ml # Voids 4 # Bowel Movements 0 0 Result Diagram: 12/23/17 0725 12/22/17 0849 Imaging Last Impressions Catheter Placement X-Ray 12/19/17 1302 Signed Impressions: Service Date/Time: Tuesday, December 19, 2017 13:50 - CONCLUSION: Uncomplicated line placement as above. Natanael Pino MD Abdomen/Pelvis CT 12/19/17 0000 Signed Impressions: Service Date/Time: Tuesday, December 19, 2017 21:45 - CONCLUSION: 1. No acute findings on abdomen and pelvic CT. The bladder is mildly this ended with mild bladder wall thickening. Fatty liver. Small hiatal hernia. Gilbert Turcios MD Thoracic Spine MRI 12/18/17 0950 Signed Impressions: Service Date/Time: Monday, December 18, 2017 15:16 - CONCLUSION: 1. The thoracic cord has normal signal and morphology throughout. 2. Mild, nonacute appearing superior endplate compression fractures of T3, T12 and L1. 3. No foraminal or spinal stenosis. 4. T9 vertebral body hemangioma. Daren Farr MD Cervical Spine MRI 12/18/17 0950 Signed Impressions: Service Date/Time: Monday, December 18, 2017 15:16 - CONCLUSION: 1. Faint, chronic appearing T2 signal abnormality throughout most of the central cervical cord. No abnormal enhancement or other evidence of an active/acute lesion. 2. Mild degenerative changes as above. There is no foraminal or spinal stenosis. Daren Farr MD Brain MRI 12/18/17 0950 Signed Impressions: Service Date/Time: Monday, December 18, 2017 15:16 - CONCLUSION: Moderate signal abnormality in the periventricular white matter with involvement of the corpus callosum in a pattern characteristic of multiple sclerosis. No recent infarct. No abnormal enhancement. Gilbert Turcios MD Chest X-Ray 12/17/17 1519 Signed Impressions: Service Date/Time: Sunday, December 17, 2017 15:23 - CONCLUSION: Cardiomegaly. Daren Escamilla MD Objective Remarks GENERAL: 57 yo male, in the chair appears in nad. CARDIOVASCULAR: Regular rate and rhythm. RESPIRATORY: No accessory muscle use. Clear to auscultation. Breath sounds equal bilaterally. GASTROINTESTINAL: Abdomen soft, non-tender, nondistended. Hepatic and splenic margins not palpable. MUSCULOSKELETAL: Extremities without clubbing, cyanosis, or edema. No obvious deformities. NEUROLOGICAL: Awake and alert. No obvious cranial nerve deficits. Motor grossly within normal limits. Five out of 5 muscle strength in the arms and legs. Normal speech. PSYCHIATRIC: Appropriate mood and affect; insight and judgment normal. Procedures s/p endoscopic resection on 12/23/17 A/P Assessment and Plan 57 yo male, with MS, DM, and HLD presented with increasing lower extremity weakness and dependence on his who feels she can no longer provide for him. He also had episode of melena and was found to have a positive Hemoccult in the ED with associated anemia. Microcytic anemia secondary to likely GI bleed from cecal mass Status post GI and hematology consultation, status post EGD and colonoscopy 12/19. Showed significant esophagitis with small ulcer in the e.g. junction, duodenal ulcer , secondary to steroid use. Also found to have a large circumferential mass in the cecum to the ascending colon, follow-up biopsy results. No active bleeding, f/u CEA, no NSAIDS, continue protonix S/P surgery 12/23/17 Colonic mass-status post colonoscopy, showed large circumferential mass in the cecum to the ascending colon. CT scan of the abdomen reviewed, benign. General surgery consulted, s/p endoscopic resection on 12/23/17 Advance diet per surgeon Add incentive spirometry Multiple sclerosis exacerbation - Pt recently completed a course of IV steroids within the last couple weeks, neurology following, MRI brain with chronic enhancement consistent with MS, T spine negative and cervical spine with faint enhancement, Heme was consulted for plasmapheresis which is tentatively planned after surgery, IR consulted for Vas-Cath placement Generalized weakness and debility PT consulted Case management consulted for d/c needs DM 2 Pt's states he has never formally been diagnosed with DM yet he is on metformin and glipizide A1c elevated at 8.3, on steroids, continue NovoLog 5 units 3 times daily before meals and SSI, BG's 160s-220s. Add long-acting insulin if needed. HLD Continue home statin HTN BPs stable Continue home Losartan and propranolol DVT prophylaxis: hold chemical anticoagulation for possible bleed, b/l SCDs Discharge Planning Discharge to [facility] once cleared by hematology and general surgery S/p surgery 12/23/17 Jeannine Chavez MD Dec 24, 2017 08:07
[2017-12-24 09:43] LABS: AUTOMATED NEUTROPHIL # 11.2 TH/MM3 (1.8-7.7); BASOPHIL # 0.1 TH/MM3 (0-0.2); BASOPHIL % 0.4 % (0.0-2.0); EOSINOPHIL % 0.4 % (0.0-4.0); HEMATOCRIT 29.7 % (39.0-51.0); HEMOGLOBIN 9.2 GM/DL (13.0-17.0); LYMPH % 5.5 % (9.0-44.0); LYMPHOCYTE # 0.7 TH/MM3 (1.0-4.8); MEAN CELL VOLUME 69.1 FL (80.0-100.0); MEAN CORPUSCULAR HEMOGLOBIN 21.5 PG (27.0-34.0); MONO % 3.7 % (0.0-8.0); MONOCYTE # 0.5 TH/MM3 (0-0.9); PLATELET COUNT 360 TH/MM3 (150-450); RED BLOOD COUNT 4.29 MIL/MM3 (4.50-5.90); RED CELL DISTRIBUTION WIDTH 27.6 % (11.6-17.2); WHITE BLOOD COUNT 12.5 TH/MM3 (4.0-11.0)
[2017-12-24 09:57] LABS: BICARBONATE 24.6 MEQ/L (21.0-32.0); CALCIUM 7.9 MG/DL (8.5-10.1); CREATININE 1.01 MG/DL (0.60-1.30)
[2017-12-24 10:22] LABS: OVALOCYTES 1+ (NORMAL)
[2017-12-24] MEDS: SODIUM CHLOR 0.45% 1000 ML INJ 1,000 ML IV SCH ×2 (10:23→18:31)
--- NOTE | 2017-12-24 12:07 | PD.ONC.PN ---
Subjective Subjective Remarks Afebrile overnight Having some mild incisional discomfort Not passing flatus as of yet Objective Data Date Time Temp Pulse Resp B/P (MAP) Pulse Ox O2 Delivery O2 Flow Rate FiO2 12/24/17 06:53 98.1 81 18 115/64 (81) 97 12/24/17 03:40 97.7 96 18 120/63 (82) 94 12/24/17 00:25 97.7 98 18 128/68 (88) 95 12/23/17 20:00 Room Air 12/23/17 19:18 98.6 115 18 160/90 (113) 93 12/23/17 16:00 97.9 109 16 121/83 (96) 94 12/23/17 15:30 98.0 98 17 145/85 (105) 100 Nasal Cannula 2 12/23/17 15:15 94 17 147/85 (105) 100 Nasal Cannula 2 12/23/17 15:00 92 17 157/88 (111) 100 Nasal Cannula 2 12/23/17 14:45 88 17 154/82 (106) 100 Nasal Cannula 2 12/23/17 14:30 88 16 172/86 (114) 100 Simple Mask 6 12/23/17 14:20 97.8 86 16 173/91 (118) 100 Simple Mask 6 12/24/17 12/24/17 12/24/17 07:00 15:00 23:00 Intake Total 480 ml Output Total 800 ml Balance -320 ml Result Diagram: 12/24/17 0842 12/24/17 0842 Laboratory Results Laboratory Tests Test 12/23/17 13:47 12/24/17 08:42 Urine Color YELLOW Urine Turbidity CLOUDY Urine pH 5.0 Urine Specific [place] 1.027 Urine Protein 30 mg/dL Urine Glucose (UA) NEG mg/dL Urine Ketones 40 mg/dL Urine Occult Blood SMALL Urine Nitrite NEG Urine Bilirubin NEG Urine Urobilinogen LESS THAN 2.0 MG/DL Urine Leukocyte Esterase LARGE Urine RBC 4 /hpf Urine WBC 27 /hpf Urine Squamous Epithelial Cells 4 /hpf Urine Amorphous Sediment RARE Urine Bacteria MANY /hpf Urine Hyaline Casts 49 /lpf Urine Mucus MANY /lpf Microscopic Urinalysis Comment CATH-CULTURE IND White Blood Count 12.5 TH/MM3 Red Blood Count 4.29 MIL/MM3 Hemoglobin 9.2 GM/DL Hematocrit 29.7 % Mean Corpuscular Volume 69.1 FL Mean Corpuscular Hemoglobin 21.5 PG Mean Corpuscular Hemoglobin Concent 31.0 % Red Cell Distribution Width 27.6 % Platelet Count 360 TH/MM3 Mean Platelet Volume 7.0 FL Neutrophils (%) (Auto) 90.0 % Lymphocytes (%) (Auto) 5.5 % Monocytes (%) (Auto) 3.7 % Eosinophils (%) (Auto) 0.4 % Basophils (%) (Auto) 0.4 % Neutrophils # (Auto) 11.2 TH/MM3 Lymphocytes # (Auto) 0.7 TH/MM3 Monocytes # (Auto) 0.5 TH/MM3 Eosinophils # (Auto) 0.0 TH/MM3 Basophils # (Auto) 0.1 TH/MM3 CBC Comment AUTO DIFF Differential Comment AUTO DIFF CONFIRMED Platelet Estimate NORMAL Platelet Morphology Comment NORMAL Ovalocytes 1+ Keratocytes Blood Urea Nitrogen 12 MG/DL Creatinine 1.01 MG/DL Random Glucose 226 MG/DL Calcium Level 7.9 MG/DL Sodium Level 135 MEQ/L Potassium Level 4.1 MEQ/L Chloride Level 101 MEQ/L Carbon Dioxide Level 24.6 MEQ/L Anion Gap 9 MEQ/L Estimat Glomerular Filtration Rate 76 ML/MIN Culture Results Microbiology Date/Time Source Procedure Growth Status 12/23/17 13:47 Urine Catheterized Urine Urine Culture Pending Received Administered Medications Medications (Trade) Dose Ordered Sig/Karina Route PRN Reason Start Time Stop Time Status Last Admin Dose Admin Sodium Chloride 1,000 ml @ 75 mls/hr [id number] IV 12/17/17 18:23 12/23/17 08:21 Sodium Chloride (NS Flush) 2 ml BID IV FLUSH 12/17/17 21:00 12/24/17 08:06 Magnesium Hydroxide (Milk Of Magnesia Liq) 30 ml Q12H PRN PO Mild constipation 12/17/17 18:30 12/21/17 21:15 Pantoprazole Sodium (Protonix Inj) 40 mg Q12H IV PUSH 12/17/17 20:00 12/24/17 07:59 Cholecalciferol (Vitamin D3) 500 units DAILY PO 12/18/17 09:00 12/24/17 08:00 Ascorbic Acid (Vitamin C) 500 mg HS PO 12/17/17 21:00 12/23/17 20:09 Patient Own Medication PT OWN MED:(Dimethyl Fumar... BID PO 12/17/17 21:00 12/24/17 08:06 Patient Own Medication PT OWN MED: OXYBUTY... HS PO 12/17/17 21:00 12/23/17 20:07 Patient Own Medication PT OWN MED: OXYBUTY... DAILY PO 12/18/17 09:00 12/24/17 08:02 Patient Own Medication PT OWN MED: PROPRANO... BID@0600,1200 PO 12/18/17 06:00 12/24/17 05:35 Patient Own Medication PT OWN MED: PROPRANO... DAILY@1800 PO 12/18/17 18:00 12/23/17 16:58 Patient Own Medication PT OWN MED: LOSAR... DAILY PO 12/18/17 09:00 12/24/17 08:05 Patient Own Medication PT OWN MED: MAGNES... DAILY PO 12/18/17 09:00 12/22/17 08:42 Patient Own Medication PT OWN MED: ATORVASTATIN 40 MG PO HS HS PO 12/17/17 22:00 12/23/17 20:07 Insulin Aspart (NovoLOG SUPPLEMENTAL SCALE) 1 ACHS SLIDING SCALE SQ 12/18/17 12:00 12/24/17 08:00 Insulin Aspart (NovoLOG INJ) 5 units TIDAC SQ 12/18/17 12:00 12/24/17 08:00 Methylprednisolone Sodium Succinate (SoluMEDROL INJ) 125 mg EVERY OTHER DAY IV PUSH 12/19/17 09:00 12/31/17 09:01 12/21/17 10:50 Famotidine (Pepcid Inj) 20 mg EVERY OTHER DAY IV PUSH 12/19/17 09:00 12/31/17 09:01 12/23/17 08:14 Cyanocobalamin (Vitamin B12) 1,000 mcg DAILY PO 12/22/17 09:00 12/24/17 08:00 Cefazolin Sodium 1000 mg/Sodium Chloride 100 ml @ 200 mls/hr Q8H IV 12/23/17 20:00 12/24/17 12:29 12/24/17 04:30 Metronidazole 100 ml @ 100 mls/hr Q8H IV 12/23/17 20:00 12/24/17 12:59 12/24/17 04:30 Acetaminophen/ Hydrocodone Bitart ([place] 5-325 Mg) 1 tab Q4H PRN PO PAIN SCALE 3 TO 5 12/23/17 14:15 12/23/17 20:17 Acetaminophen/ Hydrocodone Bitart ([place] 7.5-325 Mg) 1 tab Q4H PRN PO PAIN SCALE 6 TO 10 12/23/17 14:15 12/24/17 08:00 Morphine Sulfate (Morphine Inj) 4 mg Q3H PRN IV PUSH BREAKTHROUGH PAIN 12/23/17 14:15 12/23/17 22:26 Objective Remarks GENERAL: Older male, resting in bed in no obvious distress. SKIN: Warm and dry. HEAD: Normocephalic. EYES: No injection or drainage. NECK: Supple, trachea midline. CARDIOVASCULAR: Regular rate and rhythm without murmurs. RESPIRATORY: Breath sounds equal bilaterally. No accessory muscle use. GASTROINTESTINAL: Small vertical incision. Scant dried blood noted on dressing. Hypoactive BS. EXTREMITIES: No cyanosis, or edema. MUSCULOSKELETAL: Adequate muscle tone. NEUROLOGICAL: Moving all extremities. Normal speech. Assessment/Plan Problem List: (1) Colonic mass ICD Codes: K63.9 - Disease of intestine, unspecified Plan: --colon mass seen during colonoscopy on 12/19, biopsy pathology shows adenocarcinoma. --Large circumferential mass in the junction of the cecum to the ascending colon consistent with cancer biopsy was done -- Pt had resection on 12/23; path pending. (2) Multiple sclerosis exacerbation ICD Codes: G35 - Multiple sclerosis Status: Acute Plan: --hematology consulted to coordinate plasma exchange. --will place on hold until decision is made in terms of colectomy, now with new colon mass. Assessment 57y/o male with MS exacerbation. Hematology consulted for plasma exchange. h/o Hyperglycemia/borderline diabetes. Hypertension. Hyperlipidemia. Iron deficiency anemia. Suspected gastrointestinal bleed. Plan 1. Await path from resection on 12/23 2. Status post 3 doses of iron sucrose 3. Possibly resume plasma exchange early next week for MS exacerbation Attending Statement The exam, history, and the medical decision-making described in the above note were completed with the assistance of the mid-level provider. I reviewed and agree with the findings presented. I attest that I had a [id number] encounter with the patient on the same day, and personally performed and documented my assessment and findings in the medical record. Mandi Garcia Dec 24, 2017 12:07 Santi Mitchell MD Dec 24, 2017 13:41
[2017-12-24] MEDS: ENOXAPARIN SODIUM 40 MG/0.4 ML SYRINGE SQ SCH (16:13)
[2017-12-24] MEDS: ONDANSETRON HCL 4 MG/2 ML VIAL IVP PRN (17:18)
[2017-12-24] MEDS: MORPHINE SULFATE 2 MG/ML SYRINGE IV PUSH PRN ×2 (18:20→22:59)
--- NOTE | 2017-12-24 18:45 | HHI.PR ---
Subjective Subjective Notes Patient fairly painful; nauseous with each dose pain meds Objective Vitals/I&O Vital Signs Date Time Temp Pulse Resp B/P (MAP) Pulse Ox O2 Delivery O2 Flow Rate FiO2 12/24/17 12:00 98.0 73 18 101/59 (73) 97 12/23/17 20:00 Room Air 12/23/17 15:30 2 Labs Laboratory Tests Test 12/24/17 08:42 White Blood Count 12.5 Red Blood Count 4.29 Hemoglobin 9.2 Hematocrit 29.7 Mean Corpuscular Volume 69.1 Mean Corpuscular Hemoglobin 21.5 Mean Corpuscular Hemoglobin Concent 31.0 Red Cell Distribution Width 27.6 Platelet Count 360 Mean Platelet Volume 7.0 Neutrophils (%) (Auto) 90.0 Lymphocytes (%) (Auto) 5.5 Monocytes (%) (Auto) 3.7 Eosinophils (%) (Auto) 0.4 Basophils (%) (Auto) 0.4 Neutrophils # (Auto) 11.2 Lymphocytes # (Auto) 0.7 Monocytes # (Auto) 0.5 Eosinophils # (Auto) 0.0 Basophils # (Auto) 0.1 CBC Comment AUTO DIFF Differential Comment AUTO DIFF CONFIRMED Platelet Estimate NORMAL Platelet Morphology Comment NORMAL Ovalocytes 1+ Keratocytes Blood Urea Nitrogen 12 Creatinine 1.01 Random Glucose 226 Calcium Level 7.9 Sodium Level 135 Potassium Level 4.1 Chloride Level 101 Carbon Dioxide Level 24.6 Anion Gap 9 Estimat Glomerular Filtration Rate 76 Date/Time Source Procedure Growth Status 12/23/17 13:47 Urine Catheterized Urine Urine Culture - Preliminary NO GROWTH IN 24 HOURS. Resulted Radiology Last 48 hours Impressions Catheter Placement X-Ray 12/19/17 1302 Signed Impressions: Service Date/Time: Tuesday, December 19, 2017 13:50 - CONCLUSION: Uncomplicated line placement as above. Natanael Pino MD Thoracic Spine MRI 12/18/17 0927 Signed Impressions: Service Date/Time: Monday, December 18, 2017 15:16 - CONCLUSION: 1. The thoracic cord has normal signal and morphology throughout. 2. Mild, nonacute appearing superior endplate compression fractures of T3, T12 and L1. 3. No foraminal or spinal stenosis. 4. T9 vertebral body hemangioma. Daren Farr MD Cervical Spine MRI 12/18/1750 Signed Impressions: Service Date/Time: Monday, December 18, 2017 15:16 - CONCLUSION: 1. Faint, chronic appearing T2 signal abnormality throughout most of the central cervical cord. No abnormal enhancement or other evidence of an active/acute lesion. 2. Mild degenerative changes as above. There is no foraminal or spinal stenosis. Daren Farr MD Brain MRI 12/18/1750 Signed Impressions: Service Date/Time: Monday, December 18, 2017 15:16 - CONCLUSION: Moderate signal abnormality in the periventricular white matter with involvement of the corpus callosum in a pattern characteristic of multiple sclerosis. No recent infarct. No abnormal enhancement. Gilbert Turcios MD Lungs: Clear Abdomen: Other (distended), Post-op tenderness Narrative Exam Dressing with minimal drainage mid-portion of bandage A/P Assessment and Plan A/P Assessment and Plan POD #1 Lap assisted colectomy 57 year old male with anemia; weakness; new finding of a large circumferential mass in the junction of the cecum to the ascending colon on colonoscopy -Pathology confirms adenocarcinoma -Monitor Hb -Continue to hold anticoagulation Jaswinder Jose MD Dec 24, 2017 18:45
[2017-12-24] MEDS: ATORVASTATIN 40 MG PO SCH (19:17)
[2017-12-24] MEDS: SENNOSIDES 8.6 MG TAB PO PRN (19:17)
[2017-12-24] MEDS: MAGNESIUM HYDROXIDE SUSP 30 ML CUP PO PRN (19:17)
[2017-12-24] MEDS: ASCORBIC ACID 500 MG TAB PO SCH (19:17)
[2017-12-25 04:00] VITALS: BP 120/59; PULSE 90; RESP 16; TEMP 97.8; O2SAT 93
[2017-12-25] MEDS: LACTULOSE SYRUP 20 GM/30 ML CUP PO PRN (05:15)
[2017-12-25] MEDS: PROPRANOLOL 20 MG PO SCH ×3 (05:15→16:52)
[2017-12-25] MEDS: ACETAMINOPHEN/HYDROcodone 325 MG/7.5 MG TAB PO PRN ×4 (05:15→20:28)
[2017-12-25] MEDS: SODIUM CHLOR 0.45% 1000 ML INJ 1,000 ML IV SCH ×2 (05:16→20:29)
[2017-12-25 05:48] LABS: AUTOMATED NEUTROPHIL # 11.5 TH/MM3 (1.8-7.7); BASOPHIL % 0.2 % (0.0-2.0); EOSINOPHIL # 0.1 TH/MM3 (0-0.4); EOSINOPHIL % 0.7 % (0.0-4.0); HEMATOCRIT 26.4 % (39.0-51.0); HEMOGLOBIN 8.3 GM/DL (13.0-17.0); LYMPH % 6.3 % (9.0-44.0); LYMPHOCYTE # 0.8 TH/MM3 (1.0-4.8); MEAN CELL VOLUME 70.3 FL (80.0-100.0); MEAN CORPUSCULAR HEMOGLOBIN 22.1 PG (27.0-34.0); MEAN CORPUSCULAR HGB CONC 31.5 % (32.0-36.0); MONO % 3.4 % (0.0-8.0); MONOCYTE # 0.4 TH/MM3 (0-0.9); NEUT % 89.4 % (16.0-70.0); PLATELET COUNT 330 TH/MM3 (150-450); RED BLOOD COUNT 3.76 MIL/MM3 (4.50-5.90); RED CELL DISTRIBUTION WIDTH 28.6 % (11.6-17.2); WHITE BLOOD COUNT 12.9 TH/MM3 (4.0-11.0)
[2017-12-25 05:50] LABS: BICARBONATE 25.7 MEQ/L (21.0-32.0); CALCIUM 7.8 MG/DL (8.5-10.1)
[2017-12-25] MEDS: DIMETHYL FUMARATE 240 MG PO SCH ×2 (07:32→20:29)
[2017-12-25] MEDS: OXYBUTYNIN 5 MG PO SCH ×2 (07:33→20:29)
[2017-12-25] MEDS: LOSARTAN POTASSIUM 50 MG PO SCH (07:34)
[2017-12-25] MEDS: MAGNESIUM OXIDE 400 MG PO SCH (07:35)
[2017-12-25] MEDS: CHOLECALCIFEROL (VIT D3) 1000 UNIT TAB PO SCH (07:36)
[2017-12-25] MEDS: CYANOCOBALAMIN 1,000 MCG TAB PO SCH (07:36)
[2017-12-25] MEDS: ANTICOAGULANT CITRATE DEXTROSE SOLN-A 1L OTHER SCH (07:38)
[2017-12-25] MEDS: SODIUM CHLORIDE 0.9% FLUSH 10 ML FLUSH IV FLUSH SCH ×2 (07:38→20:28)
[2017-12-25] MEDS: FAMOTIDINE 20 MG/2 ML VIAL IV PUSH SCH (07:38)
[2017-12-25] MEDS: methylPREDNISolone SOD SUCC 125 MG/2 ML VIAL IV PUSH SCH (07:38)
[2017-12-25] MEDS: ALBUMIN 5% INJ 3,500 ML IV SCH (07:39)
[2017-12-25] MEDS: IRON SUCROSE INJ 200 MG in SODIUM CHLORIDE 0.9% INJ 100 ML IV SCH (07:39)
[2017-12-25] MEDS: CALCIUM GLUCONATE IV SCH (07:39)
[2017-12-25] MEDS: SODIUM CHLOR 0.9% IV SCH (07:39)
[2017-12-25] MEDS: PANTOPRAZOLE SODIUM 40 MG VIAL IV PUSH SCH ×2 (07:40→20:27)
[2017-12-25] MEDS: MORPHINE SULFATE 2 MG/ML SYRINGE IV PUSH PRN ×3 (07:51→22:00)
[2017-12-25] MEDS: INSULIN ASPART 1,000 UNITS/10 ML VIAL SQ SCH ×3 (07:51→16:51)
[2017-12-25] MEDS: INSULIN ASPART SUPPLEMENTAL SCALE SQ SCH ×4 (07:52→20:29)
[2017-12-25 08:00] VITALS: BP 131/76; PULSE 92; RESP 18; TEMP 98.3; O2SAT 94
[2017-12-25 09:32] LABS: OVALOCYTES 1+ (NORMAL)
--- NOTE | 2017-12-25 10:09 | HHI.PR ---
Subjective Subjective Notes no acute issues, no flatus, no bm , c/o pain Objective Vitals/I&O Vital Signs Date Time Temp Pulse Resp B/P (MAP) Pulse Ox O2 Delivery O2 Flow Rate FiO2 12/25/17 08:00 98.3 92 18 131/76 (94) 94 12/23/17 20:00 Room Air 12/23/17 15:30 2 Labs Laboratory Tests Test 12/25/17 05:11 White Blood Count 12.9 Red Blood Count 3.76 Hemoglobin 8.3 Hematocrit 26.4 Mean Corpuscular Volume 70.3 Mean Corpuscular Hemoglobin 22.1 Mean Corpuscular Hemoglobin Concent 31.5 Red Cell Distribution Width 28.6 Platelet Count 330 Mean Platelet Volume 7.0 Neutrophils (%) (Auto) 89.4 Lymphocytes (%) (Auto) 6.3 Monocytes (%) (Auto) 3.4 Eosinophils (%) (Auto) 0.7 Basophils (%) (Auto) 0.2 Neutrophils # (Auto) 11.5 Lymphocytes # (Auto) 0.8 Monocytes # (Auto) 0.4 Eosinophils # (Auto) 0.1 Basophils # (Auto) 0.0 CBC Comment AUTO DIFF Differential Comment AUTO DIFF CONFIRMED Platelet Estimate NORMAL Platelet Morphology Comment NORMAL Ovalocytes 1+ Blood Urea Nitrogen 10 Creatinine 1.00 Random Glucose 165 Calcium Level 7.8 Sodium Level 136 Potassium Level 3.9 Chloride Level 102 Carbon Dioxide Level 25.7 Anion Gap 8 Estimat Glomerular Filtration Rate 77 Date/Time Source Procedure Growth Status 12/23/17 13:47 Urine Catheterized Urine Urine Culture - Final NO GROWTH IN 48 HOURS. Complete Radiology Last 48 hours Impressions Catheter Placement X-Ray 12/19/17 1302 Signed Impressions: Service Date/Time: Tuesday, December 19, 2017 13:50 - CONCLUSION: Uncomplicated line placement as above. Natanael Pino MD Thoracic Spine MRI 12/18/17 0931 Signed Impressions: Service Date/Time: Monday, December 18, 2017 15:16 - CONCLUSION: 1. The thoracic cord has normal signal and morphology throughout. 2. Mild, nonacute appearing superior endplate compression fractures of T3, T12 and L1. 3. No foraminal or spinal stenosis. 4. T9 vertebral body hemangioma. Daren Farr MD Cervical Spine MRI 12/18/1750 Signed Impressions: Service Date/Time: Monday, December 18, 2017 15:16 - CONCLUSION: 1. Faint, chronic appearing T2 signal abnormality throughout most of the central cervical cord. No abnormal enhancement or other evidence of an active/acute lesion. 2. Mild degenerative changes as above. There is no foraminal or spinal stenosis. Daren Farr MD Brain MRI 12/18/1750 Signed Impressions: Service Date/Time: Monday, December 18, 2017 15:16 - CONCLUSION: Moderate signal abnormality in the periventricular white matter with involvement of the corpus callosum in a pattern characteristic of multiple sclerosis. No recent infarct. No abnormal enhancement. Gilbert Turcios MD Lungs: Clear Abdomen: Other (incisional tenderness) A/P Assessment and Plan POD 2 Lap partial colectomy plan oob needs to work with pt pain control continue clears until bowel fxn dvt ppx Marc Good MD Dec 25, 2017 10:09
[2017-12-25 12:00] VITALS: BP 134/73; PULSE 91; RESP 18; TEMP 98.5; O2SAT 94
[2017-12-25] MEDS: ENOXAPARIN SODIUM 40 MG/0.4 ML SYRINGE SQ SCH (12:15)
--- NOTE | 2017-12-25 15:03 | HHI.PR ---
Subjective Remarks Has pain in his abdomen. Patient says he did not pass gas not had a BM after surgery. Has some pain at the surgical site, pain meds fairly controls the pain. No n/v/d/c. Objective Vitals Vital Signs Date Time Temp Pulse Resp B/P (MAP) Pulse Ox O2 Delivery O2 Flow Rate FiO2 12/25/17 12:19 18 12/25/17 12:00 98.5 91 18 134/73 (93) 94 12/25/17 08:00 98.3 92 18 131/76 (94) 94 12/25/17 04:00 97.8 90 16 120/59 (79) 93 12/24/17 23:00 98.7 79 16 101/60 (74) 94 12/24/17 19:20 98.4 74 17 109/64 (79) 93 12/24/17 16:00 98.3 69 16 114/59 (77) 96 I/O 12/24/17 12/24/17 12/24/17 12/25/17 12/25/17 12/25/17 07:00 15:00 23:00 07:00 15:00 23:00 Intake Total 480 ml 1480 ml Output Total 800 ml 800 ml 1000 ml Balance -320 ml -800 ml 480 ml Intake Oral 480 ml 480 ml IV Total 1000 ml Output Urine Total 800 ml 800 ml 1000 ml # Bowel Movements 0 0 Result Diagram: 12/25/17 0511 12/25/17 0511 Imaging Last Impressions Catheter Placement X-Ray 12/19/17 1302 Signed Impressions: Service Date/Time: Tuesday, December 19, 2017 13:50 - CONCLUSION: Uncomplicated line placement as above. Natanael Pino MD Abdomen/Pelvis CT 12/19/17 0000 Signed Impressions: Service Date/Time: Tuesday, December 19, 2017 21:45 - CONCLUSION: 1. No acute findings on abdomen and pelvic CT. The bladder is mildly this ended with mild bladder wall thickening. Fatty liver. Small hiatal hernia. Gilbert Turcios MD Thoracic Spine MRI 12/18/17 0950 Signed Impressions: Service Date/Time: Monday, December 18, 2017 15:16 - CONCLUSION: 1. The thoracic cord has normal signal and morphology throughout. 2. Mild, nonacute appearing superior endplate compression fractures of T3, T12 and L1. 3. No foraminal or spinal stenosis. 4. T9 vertebral body hemangioma. Daren Farr MD Cervical Spine MRI 12/18/17 4494 Signed Impressions: Service Date/Time: Monday, December 18, 2017 15:16 - CONCLUSION: 1. Faint, chronic appearing T2 signal abnormality throughout most of the central cervical cord. No abnormal enhancement or other evidence of an active/acute lesion. 2. Mild degenerative changes as above. There is no foraminal or spinal stenosis. Daren Farr MD Brain MRI 12/18/17 2240 Signed Impressions: Service Date/Time: Monday, December 18, 2017 15:16 - CONCLUSION: Moderate signal abnormality in the periventricular white matter with involvement of the corpus callosum in a pattern characteristic of multiple sclerosis. No recent infarct. No abnormal enhancement. Gilbert Turcios MD Chest X-Ray 12/17/17 1519 Signed Impressions: Service Date/Time: Sunday, December 17, 2017 15:23 - CONCLUSION: Cardiomegaly. Daren Escamilla MD Objective Remarks GENERAL: 57 yo male, in the chair appears in nad. CARDIOVASCULAR: Regular rate and rhythm. RESPIRATORY: No accessory muscle use. Clear to auscultation. Breath sounds equal bilaterally. GASTROINTESTINAL: Abdomen soft, non-tender, nondistended. Hepatic and splenic margins not palpable. MUSCULOSKELETAL: Extremities without clubbing, cyanosis, or edema. No obvious deformities. NEUROLOGICAL: Awake and alert. No obvious cranial nerve deficits. Motor grossly within normal limits. Five out of 5 muscle strength in the arms and legs. Normal speech. PSYCHIATRIC: Appropriate mood and affect; insight and judgment normal. Procedures s/p endoscopic resection on 12/23/17 A/P Assessment and Plan 57 yo male, with MS, DM, and HLD presented with increasing lower extremity weakness and dependence on his who feels she can no longer provide for him. He also had episode of melena and was found to have a positive Hemoccult in the ED with associated anemia. Microcytic anemia secondary to likely GI bleed from cecal mass Status post GI and hematology consultation, status post EGD and colonoscopy 12/19. Showed significant esophagitis with small ulcer in the e.g. junction, duodenal ulcer , secondary to steroid use. Also found to have a large circumferential mass in the cecum to the ascending colon, follow-up biopsy results. No active bleeding, f/u CEA, no NSAIDS, continue protonix S/P surgery 12/23/17 No flatus or BM, continue with CLD PT/OT Colonic mass-status post colonoscopy, showed large circumferential mass in the cecum to the ascending colon. CT scan of the abdomen reviewed, benign. General surgery consulted s/p endoscopic resection on 12/23/17 Advance diet per surgeon Add incentive spirometry No flatus or BM, continue with CLD PT/OT Multiple sclerosis exacerbation - Pt recently completed a course of IV steroids within the last couple weeks, neurology following, MRI brain with chronic enhancement consistent with MS, T spine negative and cervical spine with faint enhancement, Heme was consulted for plasmapheresis which is tentatively planned after surgery, IR consulted for Vas-Cath placement Generalized weakness and debility PT consulted Case management consulted for d/c needs DM 2 Pt's states he has never formally been diagnosed with DM yet he is on metformin and glipizide A1c elevated at 8.3, on steroids, continue NovoLog 5 units 3 times daily before meals and SSI, BG's 160s-220s. Add long-acting insulin if needed. HLD Continue home statin HTN BPs stable Continue home Losartan and propranolol DVT prophylaxis: hold chemical anticoagulation for possible bleed, b/l SCDs Discharge Planning Discharge to [place] once cleared by hematology and general surgery S/p surgery 12/23/17 No flatus or BM after surgery , gen surgery ff Jeannine Chavez MD Dec 25, 2017 15:03
[2017-12-25 16:00] VITALS: BP 130/69; PULSE 77; RESP 18; TEMP 98.8; O2SAT 95
[2017-12-25 19:30] VITALS: BP 135/76; PULSE 74; RESP 17; TEMP 97.7; O2SAT 96
[2017-12-25] MEDS: MAGNESIUM HYDROXIDE SUSP 30 ML CUP PO PRN (20:28)
[2017-12-25] MEDS: SENNOSIDES 8.6 MG TAB PO PRN (20:28)
[2017-12-25] MEDS: ASCORBIC ACID 500 MG TAB PO SCH (20:28)
[2017-12-25] MEDS: ATORVASTATIN 40 MG PO SCH (20:29)
[2017-12-25 23:30] VITALS: BP 156/83; PULSE 76; RESP 16; TEMP 98.4; O2SAT 93
[2017-12-26 05:00] VITALS: BP 147/92; PULSE 88; RESP 16; TEMP 98.4; O2SAT 95
[2017-12-26] MEDS: ACETAMINOPHEN/HYDROcodone 325 MG/7.5 MG TAB PO PRN ×4 (05:17→17:49)
[2017-12-26] MEDS: LACTULOSE SYRUP 20 GM/30 ML CUP PO PRN (05:18)
[2017-12-26] MEDS: PROPRANOLOL 20 MG PO SCH ×3 (05:18→17:49)
[2017-12-26] MEDS: IRON SUCROSE INJ 200 MG in SODIUM CHLORIDE 0.9% INJ 100 ML IV SCH (07:52)
[2017-12-26] MEDS: PANTOPRAZOLE SODIUM 40 MG VIAL IV PUSH SCH ×2 (07:52→20:25)
[2017-12-26] MEDS: LOSARTAN POTASSIUM 50 MG PO SCH (07:53)
[2017-12-26] MEDS: CYANOCOBALAMIN 1,000 MCG TAB PO SCH (07:53)
[2017-12-26] MEDS: CHOLECALCIFEROL (VIT D3) 1000 UNIT TAB PO SCH (07:53)
[2017-12-26] MEDS: OXYBUTYNIN 5 MG PO SCH ×2 (07:54→20:26)
[2017-12-26] MEDS: MAGNESIUM OXIDE 400 MG PO SCH (07:54)
[2017-12-26] MEDS: SODIUM CHLORIDE 0.9% FLUSH 10 ML FLUSH IV FLUSH SCH ×2 (07:55→20:25)
[2017-12-26 08:00] VITALS: BP 118/74; PULSE 79; RESP 16; TEMP 99.2; O2SAT 93
[2017-12-26] MEDS: INSULIN ASPART 1,000 UNITS/10 ML VIAL SQ SCH ×3 (08:05→17:47)
[2017-12-26] MEDS: DIMETHYL FUMARATE 240 MG PO SCH ×2 (08:05→20:25)
[2017-12-26] MEDS: INSULIN ASPART SUPPLEMENTAL SCALE SQ SCH ×4 (08:05→21:00)
--- NOTE | 2017-12-26 11:15 | HHI.PR ---
Subjective Remarks In bed passing gas, no BM yet. Was nauseated yesterday. No vomiting. No fever or chills. With pain in his belly at the surgical site. Belly is a little distended. Objective Vitals Vital Signs Date Time Temp Pulse Resp B/P (MAP) Pulse Ox O2 Delivery O2 Flow Rate FiO2 12/26/17 08:00 99.2 79 16 118/74 (89) 93 12/26/17 07:33 Room Air 12/26/17 05:00 98.4 88 16 147/92 (110) 95 12/25/17 23:30 98.4 76 16 156/83 (107) 93 12/25/17 19:30 97.7 74 17 135/76 (95) 96 12/25/17 16:29 17 12/25/17 16:00 98.8 77 18 130/69 (89) 95 12/25/17 12:19 18 12/25/17 12:00 98.5 91 18 134/73 (93) 94 I/O 12/25/17 12/25/17 12/25/17 12/26/17 12/26/17 12/26/17 07:00 15:00 23:00 07:00 15:00 23:00 Intake Total 1480 ml 1000 ml 910 ml Output Total 1000 ml 500 ml Balance 480 ml 1000 ml 410 ml Intake Oral 480 ml 360 ml IV Total 1000 ml 1000 ml 550 ml Output Urine Total 1000 ml 500 ml # Voids 3 # Bowel Movements 0 0 Result Diagram: 12/25/17 0511 12/25/17 0511 Imaging Last Impressions Catheter Placement X-Ray 12/19/17 1302 Signed Impressions: Service Date/Time: Tuesday, December 19, 2017 13:50 - CONCLUSION: Uncomplicated line placement as above. Natanael Pino MD Abdomen/Pelvis CT 12/19/17 0000 Signed Impressions: Service Date/Time: Tuesday, December 19, 2017 21:45 - CONCLUSION: 1. No acute findings on abdomen and pelvic CT. The bladder is mildly this ended with mild bladder wall thickening. Fatty liver. Small hiatal hernia. Gilbert Turcios MD Thoracic Spine MRI 12/18/17 0950 Signed Impressions: Service Date/Time: Monday, December 18, 2017 15:16 - CONCLUSION: 1. The thoracic cord has normal signal and morphology throughout. 2. Mild, nonacute appearing superior endplate compression fractures of T3, T12 and L1. 3. No foraminal or spinal stenosis. 4. T9 vertebral body hemangioma. Daren Farr MD Cervical Spine MRI 12/18/17 0950 Signed Impressions: Service Date/Time: Monday, December 18, 2017 15:16 - CONCLUSION: 1. Faint, chronic appearing T2 signal abnormality throughout most of the central cervical cord. No abnormal enhancement or other evidence of an active/acute lesion. 2. Mild degenerative changes as above. There is no foraminal or spinal stenosis. Daren Farr MD Brain MRI 12/18/17 0038 Signed Impressions: Service Date/Time: Monday, December 18, 2017 15:16 - CONCLUSION: Moderate signal abnormality in the periventricular white matter with involvement of the corpus callosum in a pattern characteristic of multiple sclerosis. No recent infarct. No abnormal enhancement. Gilbert Turcios MD Chest X-Ray 12/17/17 1589 Signed Impressions: Service Date/Time: Sunday, December 17, 2017 15:23 - CONCLUSION: Cardiomegaly. Daren Escamilla MD Objective Remarks GENERAL: 57 yo male, in the chair appears in nad. CARDIOVASCULAR: Regular rate and rhythm. RESPIRATORY: No accessory muscle use. Clear to auscultation. Breath sounds equal bilaterally. GASTROINTESTINAL: Abdomen soft, non-tender, nondistended. Hepatic and splenic margins not palpable. MUSCULOSKELETAL: Extremities without clubbing, cyanosis, or edema. No obvious deformities. NEUROLOGICAL: Awake and alert. No obvious cranial nerve deficits. Motor grossly within normal limits. Five out of 5 muscle strength in the arms and legs. Normal speech. PSYCHIATRIC: Appropriate mood and affect; insight and judgment normal. Procedures s/p endoscopic resection on 12/23/17 A/P Assessment and Plan 57 yo male, with MS, DM, and HLD presented with increasing lower extremity weakness and dependence on his who feels she can no longer provide for him. He also had episode of melena and was found to have a positive Hemoccult in the ED with associated anemia. Microcytic anemia secondary to likely GI bleed from cecal mass Status post GI and hematology consultation, status post EGD and colonoscopy 12/19. Showed significant esophagitis with small ulcer in the e.g. junction, duodenal ulcer , secondary to steroid use. Also found to have a large circumferential mass in the cecum to the ascending colon, follow-up biopsy results. No active bleeding, f/u CEA, no NSAIDS, continue protonix S/P surgery 12/23/17 Passed flatus no BM after surgery , gen surgery ff. Advance diet per surgical recs PT/OT Colonic mass-status post colonoscopy, showed large circumferential mass in the cecum to the ascending colon. CT scan of the abdomen reviewed, benign. General surgery consulted s/p endoscopic resection on 12/23/17 Advance diet per surgeon Add incentive spirometry No flatus or BM, continue with CLD PT/OT Multiple sclerosis exacerbation - Pt recently completed a course of IV steroids within the last couple weeks, neurology following, MRI brain with chronic enhancement consistent with MS, T spine negative and cervical spine with faint enhancement, Heme was consulted for plasmapheresis which is tentatively planned after surgery, IR consulted for Vas-Cath placement Generalized weakness and debility PT consulted Case management consulted for d/c needs DM 2 Pt's states he has never formally been diagnosed with DM yet he is on metformin and glipizide A1c elevated at 8.3, on steroids, continue NovoLog 5 units 3 times daily before meals and SSI, BG's 160s-220s. Add long-acting insulin if needed. HLD Continue home statin HTN BPs stable Continue home Losartan and propranolol DVT prophylaxis: hold chemical anticoagulation for possible bleed, b/l SCDs Discharge Planning Discharge to [place] once cleared by hematology and general surgery S/p surgery 12/23/17 Passed flatus no BM after surgery , gen surgery ff. Advance diet per surgical recs Plan to DC to [place] when cleared by surgery Jeannine Chavez MD Dec 26, 2017 11:15
--- NOTE | 2017-12-26 11:17 | HHI.DS ---
Discharge Summary Admission Date Dec 17, 2017 at 17:42 Discharge Date: Dec 27, 2017 Admitting Diagnosis Hyperglycemia/GI bleed/symptomatic anemia (1) Hypokalemia ICD Code: E87.6 - Hypokalemia Status: Acute (2) GI bleed ICD Code: K92.2 - Gastrointestinal hemorrhage, unspecified Status: Acute (3) DM (diabetes mellitus) ICD Code: E11.9 - Type 2 diabetes mellitus without complications Status: Chronic (4) Anemia ICD Code: D64.9 - Anemia, unspecified Status: Acute (5) Hyperlipidemia ICD Code: E78.5 - Hyperlipidemia, unspecified Status: Chronic (6) Hypertension ICD Code: I10 - Essential (primary) hypertension Status: Chronic (7) Multiple sclerosis exacerbation ICD Code: G35 - Multiple sclerosis Status: Acute (8) Impaired mobility and activities of daily living ICD Code: Z74.09 - Other reduced mobility Status: Chronic (9) Colonic mass ICD Code: K63.9 - Disease of intestine, unspecified Procedures s/p endoscopic resection on 12/23/17 Brief History - From Admission 57 year old male with primary progressive multiple sclerosis presenting with increasing weakness, confusion, and inability to care for himself. He is accompanied by his who provides most of the history. He was hospitalized from 12/05-12/07 for MS exacerbation and treated with IV Solumedrol and sent home on a tapering course of prednisone that he is still taking. His is very concerned because before he was able to at least help transfer himself (i.e. to and from his wheelchair) but now he is completely dependent and she has been having an increasingly difficult time taking care of him. Currently he is getting three hours a day of [facility] which is all they can afford. She describes him as " weight." He was having lower extremity weakness prior to his last hospitalization and states he had mild improvement on the steroids but feels that it is worsening once more. He also endorses bilateral leg pain. Prior to the last hospitalization he was taking Aleve regularly; he was found to have a hemoglobin around 7 and was transfused a unit but had negative Hemoccult. He was told to discontinue the Aleve. He has been on Zantac while on the tapering prednisone but today he had a large, black, liquid bowel movement. He had no associated nausea, vomiting, fever, chills, chest pain, or abdominal pain. He has never had a colonoscopy. CBC/BMP: 12/25/17 0511 12/25/17 0511 Significant Findings Laboratory Tests Test 12/23/17 13:47 12/24/17 08:42 12/25/17 05:11 Urine Turbidity CLOUDY (CLEAR) Urine Protein 30 mg/dL (NEG-TRACE) Urine Ketones 40 mg/dL (NEG) Urine Occult Blood SMALL (NEG) Urine Leukocyte Esterase LARGE (NEG) Urine RBC 4 /hpf (0-3) Urine WBC 27 /hpf (0-5) Urine Bacteria MANY /hpf (NONE) Urine Mucus MANY /lpf (OCC) White Blood Count 12.5 TH/MM3 (4.0-11.0) 12.9 TH/MM3 (4.0-11.0) Red Blood Count 4.29 MIL/MM3 (4.50-5.90) 3.76 MIL/MM3 (4.50-5.90) Hemoglobin 9.2 GM/DL (13.0-17.0) 8.3 GM/DL (13.0-17.0) Hematocrit 29.7 % (39.0-51.0) 26.4 % (39.0-51.0) Mean Corpuscular Volume 69.1 FL (80.0-100.0) 70.3 FL (80.0-100.0) Mean Corpuscular Hemoglobin 21.5 PG (27.0-34.0) 22.1 PG (27.0-34.0) Mean Corpuscular Hemoglobin Concent 31.0 % (32.0-36.0) 31.5 % (32.0-36.0) Red Cell Distribution Width 27.6 % (11.6-17.2) 28.6 % (11.6-17.2) Neutrophils (%) (Auto) 90.0 % (16.0-70.0) 89.4 % (16.0-70.0) Lymphocytes (%) (Auto) 5.5 % (9.0-44.0) 6.3 % (9.0-44.0) Neutrophils # (Auto) 11.2 TH/MM3 (1.8-7.7) 11.5 TH/MM3 (1.8-7.7) Lymphocytes # (Auto) 0.7 TH/MM3 (1.0-4.8) 0.8 TH/MM3 (1.0-4.8) Ovalocytes 1+ (NORMAL) 1+ (NORMAL) Random Glucose 226 MG/DL (74-106) 165 MG/DL (74-106) Calcium Level 7.9 MG/DL (8.5-10.1) 7.8 MG/DL (8.5-10.1) Sodium Level 135 MEQ/L (136-145) Estimat Glomerular Filtration Rate 76 ML/MIN (>89) 77 ML/MIN (>89) Imaging Last Impressions Catheter Placement X-Ray 12/19/17 1302 Signed Impressions: Service Date/Time: Tuesday, December 19, 2017 13:50 - CONCLUSION: Uncomplicated line placement as above. Natanael Pino MD Abdomen/Pelvis CT 12/19/17 0000 Signed Impressions: Service Date/Time: Tuesday, December 19, 2017 21:45 - CONCLUSION: 1. No acute findings on abdomen and pelvic CT. The bladder is mildly this ended with mild bladder wall thickening. Fatty liver. Small hiatal hernia. Gilbert Turcios MD Thoracic Spine MRI 12/18/17 0650 Signed Impressions: Service Date/Time: Monday, December 18, 2017 15:16 - CONCLUSION: 1. The thoracic cord has normal signal and morphology throughout. 2. Mild, nonacute appearing superior endplate compression fractures of T3, T12 and L1. 3. No foraminal or spinal stenosis. 4. T9 vertebral body hemangioma. Daren Farr MD Cervical Spine MRI 12/18/17 0701 Signed Impressions: Service Date/Time: Monday, December 18, 2017 15:16 - CONCLUSION: 1. Faint, chronic appearing T2 signal abnormality throughout most of the central cervical cord. No abnormal enhancement or other evidence of an active/acute lesion. 2. Mild degenerative changes as above. There is no foraminal or spinal stenosis. Daren Farr MD Brain MRI 12/18/17 2071 Signed Impressions: Service Date/Time: Monday, December 18, 2017 15:16 - CONCLUSION: Moderate signal abnormality in the periventricular white matter with involvement of the corpus callosum in a pattern characteristic of multiple sclerosis. No recent infarct. No abnormal enhancement. Gilbert Turcios MD Chest X-Ray 12/17/17 1519 Signed Impressions: Service Date/Time: Sunday, December 17, 2017 15:23 - CONCLUSION: Cardiomegaly. Daren Escamilla MD PE at Discharge GENERAL: 57 yo male, in the chair appears in nad. CARDIOVASCULAR: Regular rate and rhythm. RESPIRATORY: No accessory muscle use. Clear to auscultation. Breath sounds equal bilaterally. GASTROINTESTINAL: Abdomen soft, non-tender, nondistended. Hepatic and splenic margins not palpable. MUSCULOSKELETAL: Extremities without clubbing, cyanosis, or edema. No obvious deformities. NEUROLOGICAL: Awake and alert. No obvious cranial nerve deficits. Motor grossly within normal limits. Five out of 5 muscle strength in the arms and legs. Normal speech. PSYCHIATRIC: Appropriate mood and affect; insight and judgment normal. Pt Condition on Discharge: Stable Discharge Disposition: Rehab Inpatient Discharge Time: > 30 minutes Discharge Instructions DIET: Follow Instructions for: Heart Healthy Diet Activities you can perform: Regular-No Restrictions Jeannine Chavez MD Dec 26, 2017 11:17
[2017-12-26 12:00] VITALS: BP 99/59; PULSE 78; RESP 16; TEMP 97.8; O2SAT 95
[2017-12-26] MEDS: MAGNESIUM HYDROXIDE SUSP 30 ML CUP PO PRN (12:04)
[2017-12-26] MEDS: ENOXAPARIN SODIUM 40 MG/0.4 ML SYRINGE SQ SCH (14:04)
--- NOTE | 2017-12-26 14:59 | MP ---
cc: Wu Lamb MD DATE OF OPERATION: 12/23/2017 PREOPERATIVE DIAGNOSES: 1. Lower gastrointestinal bleed. 2. Adenocarcinoma of the ascending colon. POSTOPERATIVE DIAGNOSIS: 1. Lower gastrointestinal bleed. 2. Adenocarcinoma of the ascending colon. PROCEDURE PERFORMED: Laparoscopic-assisted right hemicolectomy. ATTENDING SURGEON: Wu Lamb MD. MICROGRAPHICS SERVICES SUPERVISOR: Staff. ANESTHESIA: General and regional TAP block. BLOOD LOSS: 250 mL. COMPLICATIONS: None. FINDINGS: A large bulky tumor in the right colon without evidence of any pathologic lymphadenopathy or metastatic disease grossly on diagnostic laparoscopy or palpation on the specimen. Division of the specimen proximal to the terminal ileum and proximal to the right branch of the middle colic artery. INDICATIONS FOR PROCEDURE: The patient is a 57-year-old male with a history of multiple sclerosis who was admitted to [facility] for weakness. Workup did reveal anemia and GI was consulted. The patient underwent a lower endoscopy which showed a right colonic mass. Biopsies of the mass did return adenocarcinoma. This was thought to be the source of the bleeding. CT scan for staging shows no evidence of metastatic disease. I had a discussion with the patient and his about the treatment options including partial colectomy, including discussion of the risks, benefits, alternatives and they agreed to undergo the procedure. DESCRIPTION OF PROCEDURE: The patient was taken to the operating room, placed in a supine position, placed under general endotracheal anesthesia. The patient's abdomen was shaved, prepped and draped in a sterile fashion. Time-out was performed. The abdomen was entered through a Asa-type technique just above the umbilicus using a 10 mm trocar. I directly placed a trocar into the abdomen under visualization with a laparoscope. We insufflated the abdomen with CO2 and surveyed the abdomen. There was no evidence of any metastatic disease. We placed a 5 mm port in the subxiphoid position and a 5 mm port in the right lower quadrant, both under direct visualization with the laparoscope. We were able to manipulate the viscera. There was a large bulky tumor in the right colon. We used a laparoscopic LigaSure to continue our dissection. We basically dissected the lateral to medial approach as the patient had very densely adhered retroperitoneal attachments along the white line of Toldt. We mobilized to the hepatic flexure. Due to the patient's large volume of intra-abdominal fat, we did have some difficulty with completely mobilizing the hepatic flexure. We, however, did the majority of the procedure laparoscopically and the colon was mostly mobilized. We still had some limited mobility of the hepatic flexure and gaining . We did place a hand port in the epigastric area by connecting the 2 upper ports. This was an Angel type of hand port. This was placed without difficulty. We did also divide the the vasculature with an [place] stapler with a white load.We were then able to directly visualize this portion and I used a right angle and DeBakey's as well as some finger dissection to free up the hepatic flexure. Once we had fully mobilized this, we had extracorporealized the specimen including the distal ileum to the transverse colon out through the hand port. We divided the terminal ileum with a blue load on the [place] stapler. We divided the mid transverse colon with a second blue load on the [place] stapler. We performed a [id number] functional end-to-end anastomosis with the antimesenteric small bowel and tinea using the blue load on the [place] stapler. We closed the staple defect with a second blue load on the [place] stapler. We oversewed the suture lines in the crotch and the distal stumps with 3-0 silk suture. We closed the mesenteric defect with interrupted 3-0 silk suture. We then placed the specimen back into the abdomen. We were able to close the port site and did perform some irrigation in the right upper quadrant prior to this until all irrigation was clear. Again, this was closed with a #1 looped PDS. We removed all the ports and expressed all peritoneum. We closed the skin with skin cally. A sterile dressing was applied. The patient was discontinued from the anesthesia and taken to the PACU in stable condition. The patient tolerated the procedure well. No apparent complications. All counts were correct and I was present and scrubbed for the entire procedure. MD JEN Garza/ANI/rr , 08:47 AM , 09:33 AM [place]ON
--- NOTE | 2017-12-26 15:17 | RADRPT ---
EXAM DATE/TIME: 12/26/2017 14:50 [facility] COMPARISON: No previous studies available for comparison. INDICATIONS : Abdominal distention. MEDICAL HISTORY : Cardiovascular disease. Hypertension. Hernia, hiatal.MS SURGICAL HISTORY : None. ENCOUNTER: Initial ACUITY: 1 day PAIN SCORE: 6/10 LOCATION: all quadrants. FINDINGS: Mild diffuse T. distended loops small bowel with moderate distention of the stomach. Is noted in the transverse and descending colon. No gross free air there were pneumatosis. Osseous structures are int act. CONCLUSION: 1. Findings consistent with moderate adynamic ileus versus developing partial small bowel obstruction . Natanael Pino MD on December 26, 2017 at 15:13 Board Certified Radiologist. This report was verified electronically.
[2017-12-26] MEDS: SODIUM CHLOR 0.45% 1000 ML INJ 1,000 ML IV SCH ×2 (15:43→22:52)
[2017-12-26 16:00] VITALS: BP 101/59; PULSE 73; RESP 16; TEMP 97.9; O2SAT 93
--- NOTE | 2017-12-26 16:24 | HHI.PR ---
Subjective Subjective Notes Resting in bed Feeling a little nausea Just had a visit from a friend Objective Vitals/I&O Vital Signs Date Time Temp Pulse Resp B/P (MAP) Pulse Ox O2 Delivery O2 Flow Rate FiO2 12/26/17 12:00 97.8 78 16 99/59 (72) 95 12/26/17 07:33 Room Air 12/23/17 15:30 2 Labs Date/Time Source Procedure Growth Status 12/23/17 13:47 Urine Catheterized Urine Urine Culture - Final NO GROWTH IN 48 HOURS. Complete Radiology Last 48 hours Impressions Catheter Placement X-Ray 12/19/17 1302 Signed Impressions: Service Date/Time: Tuesday, December 19, 2017 13:50 - CONCLUSION: Uncomplicated line placement as above. Natanael Pino MD Thoracic Spine MRI 12/18/17 0950 Signed Impressions: Service Date/Time: Monday, December 18, 2017 15:16 - CONCLUSION: 1. The thoracic cord has normal signal and morphology throughout. 2. Mild, nonacute appearing superior endplate compression fractures of T3, T12 and L1. 3. No foraminal or spinal stenosis. 4. T9 vertebral body hemangioma. Daren Farr MD Cervical Spine MRI 12/18/1718 Signed Impressions: Service Date/Time: Monday, December 18, 2017 15:16 - CONCLUSION: 1. Faint, chronic appearing T2 signal abnormality throughout most of the central cervical cord. No abnormal enhancement or other evidence of an active/acute lesion. 2. Mild degenerative changes as above. There is no foraminal or spinal stenosis. Daren Farr MD Brain MRI 12/18/1783 Signed Impressions: Service Date/Time: Monday, December 18, 2017 15:16 - CONCLUSION: Moderate signal abnormality in the periventricular white matter with involvement of the corpus callosum in a pattern characteristic of multiple sclerosis. No recent infarct. No abnormal enhancement. Gilbert Turcios MD Cardiovascular: Regular Lungs: Clear Abdomen: Other (distended ), Post-op tenderness Extremities: No edema A/P Assessment and Plan 57 year old male with anemia; weakness; new finding of a large circumferential mass in the junction of the cecum to the ascending colon on colonoscopy -POD3 Lap partial colectomy -KUB shows ileus -Will continue sips of clears for now -Await pathology -Jace Attending Statement The exam, history, and the medical decision-making described in the above note were completed with the assistance of the mid-level provider. I reviewed and agree with the findings presented. I attest that I had a [id number] encounter with the patient on the same day, and personally performed and documented my assessment and findings in the medical record. patient s/p right hemicolectomy states he feels better, no flatus or BM, no N/V abdomen soft, minimal incisional pain continue supportive care, await bowel function Jolene Pelayo/First Renetta FAGAN Dec 26, 2017 16:24 Wu Lamb MD Dec 27, 2017 11:07
[2017-12-26] MEDS: ONDANSETRON HCL 4 MG/2 ML VIAL IVP PRN (17:48)
[2017-12-26 19:51] VITALS: BP 112/61; PULSE 75; RESP 16; TEMP 98; O2SAT 94
[2017-12-26] MEDS: ATORVASTATIN 40 MG PO SCH (20:25)
[2017-12-26] MEDS: ASCORBIC ACID 500 MG TAB PO SCH (20:26)
[2017-12-26 23:54] VITALS: BP 116/68; PULSE 72; RESP 18; TEMP 98.5; O2SAT 95
[2017-12-27] VITALS (20 sets, daily range): BP systolic 91–123; BP diastolic 56–84; PULSE 68–116; RESP 16–32; TEMP 98.5–103.2; O2SAT 89–100
[2017-12-27] MEDS: ONDANSETRON HCL 4 MG/2 ML VIAL IVP PRN (01:59)
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
[2017-12-27] MEDS ORDERED: ETOMIDATE 40 MG/20 ML VIAL ONE (03:39)
[2017-12-27] MEDS ORDERED: PROPOFOL 500 MG/50 ML INJ 50 ML ONE (03:41)
[2017-12-27] MEDS ORDERED: PHENYLEPHRINE HCL 10 MG/ML VIAL ONE (03:53)
[2017-12-27] MEDS ORDERED: PROPOFOL 1000 MG/100 ML IV PRN (04:00)
[2017-12-27] MEDS ORDERED: NOREPINEPHRINE 4 MG/D5W 250 ML IV PRN (04:00)
[2017-12-27] MEDS ORDERED: VASOPRESSIN 20 UNITS/ML VIAL ONE (04:06)
[2017-12-27] MEDS ORDERED: HYDROCORTISONE SOD SUCCINATE 100 MG VIAL ONE (04:10)
--- NOTE | 2017-12-27 04:23 | HHI.PR ---
Addendum to Inpatient Note Addendum Reason: Additional Documentation Additional Information I saw the patient in his room. He is utilizing accessory muscles to breathe and nods yes when asked about SOB but denies pain. He has increasing oxygen needs. The patient is not able to maintain mental alertness for long enough to clarify code status with hime. I, therefore, called patient's Angel Wilkes to clarify patient's code status - There are no advanced directives on file, patient's would be healthcare proxy decision maker per [place] Statutes. She expresses that the patient would not want to "end up like Tex Pimentel", clarified as meaning on prolonged life support, but would want intubation with mechanical ventilation, CPR, ACLS drugs, and shocks administered to resuscitate him in the event of CP arrest during this hospitalization. She indicates that they did not have a good understanding of what a DNR status meant. I have changed code status to FULL CODE as patient's indicates that this would be the patient's wish. The patient will be transferred to [facility] for closer observation and the patient's understands and agrees with the plan of treatment. Chelsea Senior Dec 27, 2017 04:23
[2017-12-27] MEDS ORDERED: VASOPRESSIN INJ 40 UNITS in DEXTROSE 5% IN WATER 100ML INJ 98 ML IV SCH ×2 (04:28)
[2017-12-27] MEDS ORDERED: RESP: ALBUTEROL 2.5 MG/3 ML NEB (PRN) INH (04:30)
[2017-12-27] MEDS ORDERED: NOREPINEPHRINE INJ 4 MG in SODIUM CHLOR 0.9% 250 ML INJ 246 ML IV PRN (04:30)
[2017-12-27] MEDS ORDERED: SODIUM CHLORIDE 0.9% FLUSH 10 ML FLUSH IV FLUSH PRN ×2 (04:30)
[2017-12-27] MEDS ORDERED: MISCELLANEOUS NURSING INFORMATION XX SCH (04:30)
[2017-12-27] MEDS ORDERED: TERBUTALINE INJ 1 MG/ML AMP SQ PRN ×2 (04:30)
[2017-12-27] MEDS ORDERED: CHLORHEXIDINE GLUCONATE 2 % 1 PACK (2 CLOTHS) TOP PRN (04:30)
[2017-12-27] MEDS ORDERED: ONDANSETRON HCL 4 MG/2 ML VIAL IV PUSH PRN (04:30)
[2017-12-27] MEDS ORDERED: HYDROCORTISONE SOD SUCCINATE 100 MG VIAL IV PUSH ONE ×2 (04:30)
[2017-12-27] MEDS ORDERED: VASOPRESSIN 40 U/D5W 100 ML Titrate, Post Cardiac Surgery IV PRN ×2 (04:30)
[2017-12-27] MEDS ORDERED: PHENYLEPHRINE INJ 160 MG in DEXTROSE 5% IN WATE 500 ML INJ 484 ML IV PRN ×2 (04:30)
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
[2017-12-27] MEDS ORDERED: POTASSIUM CHLOR 20 MEQ PREMIX 100 ML IV PRN ×2 (04:45)
[2017-12-27] MEDS ORDERED: POTASSIUM CHLORIDE 25 MEQ EFFERVESCENT TAB PO PRN (04:45)
[2017-12-27] MEDS ORDERED: POTASSIUM CHLOR 40 MEQ PREMIX 100 ML IV PRN ×2 (04:45)
[2017-12-27] MEDS ORDERED: POTASSIUM PHOSPHATE MONOBASIC 500 MG TAB PO/TUBE PRN (04:45)
[2017-12-27] MEDS ORDERED: Vancomycin Consult Pharmacy 1 EA OTHER SCH (04:45)
[2017-12-27] MEDS ORDERED: SODIUM PHOSPHATE INJ 30 MMOL in SODIUM CHLOR 0.9% 250 ML INJ 240 ML IV PRN (04:45)
[2017-12-27] MEDS ORDERED: MAGNESIUM SULFATE INJ 4 GM in SODIUM CHLORIDE 0.9% INJ 92 ML IV PRN (04:45)
[2017-12-27] MEDS ORDERED: ACETAMINOPHEN 650 MG/20.3 ML UDC PO PRN (04:45)
[2017-12-27] MEDS ORDERED: POTASSIUM PHOSPHATE INJ 30 MMOL in SODIUM CHLOR 0.9% 250 ML INJ 250 ML IV PRN (04:45)
[2017-12-27] MEDS ORDERED: MAGNESIUM SULFATE INJ 2 GM in SODIUM CHLORIDE 0.9% INJ 96 ML IV PRN (04:45)
[2017-12-27] MEDS ORDERED: MAGNESIUM OXIDE 400 MG TAB PO PRN (04:45)
[2017-12-27] MEDS ORDERED: POTASSIUM PHOSPHATE MONOBASIC 500 MG TAB PO PRN (04:45)
[2017-12-27 05:07] LABS: AUTOMATED NEUTROPHIL # 4.2 TH/MM3 (1.8-7.7); BASOPHIL % 0.3 % (0.0-2.0); EOSINOPHIL % 0.3 % (0.0-4.0); HEMATOCRIT 31.1 % (39.0-51.0); HEMOGLOBIN 9.6 GM/DL (13.0-17.0); LYMPH % 14.1 % (9.0-44.0); LYMPHOCYTE # 0.7 TH/MM3 (1.0-4.8); MEAN CELL VOLUME 71.6 FL (80.0-100.0); MEAN CORPUSCULAR HEMOGLOBIN 22.1 PG (27.0-34.0); MEAN CORPUSCULAR HGB CONC 30.9 % (32.0-36.0); MEAN PLATELET VOLUME 7.2 FL (7.0-11.0); MONO % 3.6 % (0.0-8.0); MONOCYTE # 0.2 TH/MM3 (0-0.9); NEUT % 81.7 % (16.0-70.0); PLATELET COUNT 440 TH/MM3 (150-450); RED BLOOD COUNT 4.35 MIL/MM3 (4.50-5.90); RED CELL DISTRIBUTION WIDTH 29.5 % (11.6-17.2); WHITE BLOOD COUNT 5.2 TH/MM3 (4.0-11.0)
[2017-12-27] MEDS ORDERED: SODIUM CHLOR 0.9% 1000 ML INJ 1,000 ML IV ONE (05:15)
[2017-12-27 05:39] LABS: ALBUMIN 1.8 GM/DL (3.4-5.0); ALKALINE PHOSPHATASE 81 U/L (45-117); ALT (GPT) 24 U/L (12-78); AST (GOT) 18 U/L (15-37); BICARBONATE 20.8 MEQ/L (21.0-32.0); BLOOD UREA NITROGEN 26 MG/DL (7-18); CALCIUM 7.7 MG/DL (8.5-10.1); CHLORIDE 94 MEQ/L (98-107); CREATININE 2.03 MG/DL (0.60-1.30); GLOMERULAR FILTRATION RATE 34 ML/MIN (>89); GLUCOSE,RANDOM 230 MG/DL (74-106); SODIUM (NA) 132 MEQ/L (136-145); TOTAL BILIRUBIN ADULT 0.6 MG/DL (0.2-1.0); TOTAL PROTEIN 5.2 GM/DL (6.4-8.2); TROPONIN I LESS THAN 0.02 NG/ML (0.02-0.05)
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
[2017-12-27 06:10] LABS: BANDS 55 % (0-6); CORRECTED NUCLEATED RBC 1 /100 WBC (0-0); DOHLE BODIES PRESENT (NONE SEEN); LYMPHOCYTES 10 % (9-44); METAMYELOCYTES 4 % (0-1); MONOCYTES 6 % (0-8); NEUTROPHIL # MANUAL DIFF 4.4 TH/MM3 (1.8-7.7); NUCLEATED RED BLOOD CELL 1 (0-0); POLYS (SEG NEUTROPHILS) 25 % (16-70); TOXIC GRANULATION 1+ (NORMAL)
[2017-12-27 06:11] LABS: ACANTHOCYTES OCC (NORMAL); HOWELL-JOLLY BODIES PRESENT (NONE SEEN); OVALOCYTES 1+ (NORMAL); POLYCHROMASIA 2.2 % (0.0-1.9)
[2017-12-27] MEDS: SODIUM CHLOR 0.9% 1000 ML INJ 1,000 ML IV SCH ×2 (06:29→16:09)
[2017-12-27] MEDS: PIPERACIL-TAZO 4.5 GM PREMIX 100 ML IV SCH ×3 (06:29→17:19)
[2017-12-27] MEDS ORDERED: VANCOMYCIN INJ 1,750 MG in SODIUM CHLORID 0.9% 500 ML INJ 500 ML IV ONE (07:00)
[2017-12-27 07:39] LABS: BACTERIA, URINE RARE /hpf; BLOOD, URINE SMALL (NEG); GLUCOSE,URINE NEG (NEG); HYALINE CAST, URINE 11 /lpf (RARE); KETONE, URINE 40 mg/dL (NEG); MUCUS URINE MANY /lpf (OCC); NITRITE,URINE NEG (NEG); PH, URINE 5.5 (5.0-8.5); SQUAMOUS EPITHELIAL CELL URINE 1 /hpf (0-5); URINE COLOR YELLOW (YELLW/STRAW); URINE LEUKOCYTE ESTERASE MOD (NEG)
[2017-12-27 07:41] LABS: BILIRUBIN, URINE NEG (NEG)
[2017-12-27] MEDS: INSULIN ASPART SUPPLEMENTAL SCALE SQ SCH ×4 (08:00→21:49)
[2017-12-27] MEDS: RESP: ALBUTEROL 2.5 MG/IPRATROPIUM 0.5 MG NEB (SCH) INH ×4 (08:03→19:28)
[2017-12-27] MEDS: CHLORHEXIDINE 0.12% (ORAL KIT) 15 ML CUP MT SCH ×2 (08:10→21:49)
[2017-12-27] MEDS: PANTOPRAZOLE SODIUM 40 MG VIAL IV PUSH SCH ×2 (08:10→20:08)
[2017-12-27] MEDS: ARTIFICIAL TEARS OPTH SOLN 15 ML BTL EACH EYE SCH ×3 (08:11→17:19)
[2017-12-27] MEDS: CYANOCOBALAMIN 1,000 MCG TAB PO SCH (08:11)
[2017-12-27] MEDS: SODIUM CHLORIDE 0.9% FLUSH 10 ML FLUSH IV FLUSH SCH ×3 (08:11→21:00)
[2017-12-27] MEDS: CHOLECALCIFEROL (VIT D3) 1000 UNIT TAB PO SCH (08:11)
[2017-12-27] MEDS: ANTICOAGULANT CITRATE DEXTROSE SOLN-A 1L OTHER SCH (09:00)
[2017-12-27] MEDS: methylPREDNISolone SOD SUCC 125 MG/2 ML VIAL IV PUSH SCH (09:00)
[2017-12-27] MEDS: FAMOTIDINE 20 MG/2 ML VIAL IV PUSH SCH (09:00)
[2017-12-27] MEDS: ALBUMIN 5% INJ 3,500 ML IV SCH (09:00)
[2017-12-27] MEDS: DIMETHYL FUMARATE 240 MG PO SCH ×2 (09:00→21:00)
[2017-12-27] MEDS: CALCIUM GLUCONATE IV SCH (09:00)
[2017-12-27] MEDS: IRON SUCROSE INJ 200 MG in SODIUM CHLORIDE 0.9% INJ 100 ML IV SCH (09:00)
[2017-12-27] MEDS ORDERED: PANTOPRAZOLE SODIUM 40 MG VIAL IV PUSH SCH (09:00)
[2017-12-27] MEDS: SODIUM CHLOR 0.9% IV SCH (09:00)
[2017-12-27] MEDS: fentaNYL 2,500 MCG/NS 250 ML IV PRN (09:30)
[2017-12-27] MEDS: NOREPINEPHRINE INJ 16 MG in SODIUM CHLOR 0.9% 250 ML INJ 234 ML IV PRN (10:23)
[2017-12-27] MEDS ORDERED: DIATRIZOATE MEGLUM/DIATRIZOATE SOD 9 ML CUP PO ONE (11:00)
--- NOTE | 2017-12-27 11:13 | HHI.PR ---
Subjective Subjective Notes intubated overnight Objective Vitals/I&O Vital Signs Date Time Temp Pulse Resp B/P (MAP) Pulse Ox O2 Delivery O2 Flow Rate FiO2 12/27/17 10:23 100 106/63 12/27/17 09:23 20 12/27/17 08:03 94 100 12/27/17 08:00 103.2 12/27/17 08:00 Mechanical Ventilator 12/27/17 02:14 8.00 Labs Laboratory Tests Test 12/27/17 02:16 12/27/17 04:34 12/27/17 05:00 12/27/17 06:40 Blood Gas Puncture Site RT RADIAL ART LINE Blood Gas Patient Temperature 98.6 98.6 Blood Gas HCO3 22 15 Blood Gas Base Excess -1.5 -8.4 Blood Gas Oxygen Saturation 91 88 Arterial Blood pH 7.48 7.46 Arterial Blood Partial Pressure CO2 30 21 Arterial Blood Partial Pressure O2 68 59 Arterial Blood Oxygen Content 14.0 12.1 Arterial Blood Carboxyhemoglobin 2.3 2.0 Arterial Blood Methemoglobin 0.8 0.7 Blood Gas Hemoglobin 10.9 9.7 Oxygen Delivery Device SM VENTILATOR Blood Gas Liter Flow 8 White Blood Count 5.2 Red Blood Count 4.35 Hemoglobin 9.6 Hematocrit 31.1 Mean Corpuscular Volume 71.6 Mean Corpuscular Hemoglobin 22.1 Mean Corpuscular Hemoglobin Concent 30.9 Red Cell Distribution Width 29.5 Platelet Count 440 Mean Platelet Volume 7.2 Neutrophils (%) (Auto) 81.7 Lymphocytes (%) (Auto) 14.1 Monocytes (%) (Auto) 3.6 Eosinophils (%) (Auto) 0.3 Basophils (%) (Auto) 0.3 Neutrophils # (Auto) 4.2 Lymphocytes # (Auto) 0.7 Monocytes # (Auto) 0.2 Eosinophils # (Auto) 0.0 Basophils # (Auto) 0.0 CBC Comment AUTO DIFF Differential Total Cells Counted 100 Neutrophils % (Manual) 25 Band Neutrophils % 55 Lymphocytes % 10 Monocytes % 6 Neutrophils # (Manual) 4.4 Metamyelocytes 4 Nucleated Red Blood Cells 1 Differential Comment FINAL DIFF MANUAL Toxic Granulation 1+ Dohle Bodies PRESENT Platelet Estimate NORMAL Platelet Morphology Comment NORMAL Polychromasia 2.2 Ovalocytes 1+ [place] Bodies PRESENT Acanthocytes OCC Blood Urea Nitrogen 26 Creatinine 2.03 Random Glucose 230 Total Protein 5.2 Albumin 1.8 Calcium Level 7.7 Alkaline Phosphatase 81 Aspartate Amino Transf (AST/SGOT) 18 Alanine Aminotransferase (ALT/SGPT) 24 Total Bilirubin 0.6 Sodium Level 132 Potassium Level 4.3 Chloride Level 94 Carbon Dioxide Level 20.8 Anion Gap 17 Estimat Glomerular Filtration Rate 34 Lactic Acid Level 3.6 Troponin I LESS THAN 0.02 Blood Gas Ventilator Setting PC/AC Blood Gas Inspired Oxygen 100 Urine Color YELLOW Urine Turbidity HAZY Urine pH 5.5 Urine Specific Lohn 1.014 Urine Protein 30 Urine Glucose (UA) NEG Urine Ketones 40 Urine Occult Blood SMALL Urine Nitrite NEG Urine Bilirubin NEG Urine Urobilinogen 2.0 Urine Leukocyte Esterase MOD Urine RBC 13 Urine WBC 20 Urine Squamous Epithelial Cells 1 Urine Bacteria RARE Urine Hyaline Casts 11 Urine Mucus MANY Microscopic Urinalysis Comment CATH-CULTURE IND Test 12/27/17 06:50 12/27/17 07:18 12/27/17 10:55 Blood Gas Puncture Site ART LINE Blood Gas Patient Temperature 98.6 Blood Gas HCO3 17 Blood Gas Base Excess -6.2 Blood Gas Oxygen Saturation 90 Arterial Blood pH 7.44 Arterial Blood Partial Pressure CO2 26 Arterial Blood Partial Pressure O2 68 Arterial Blood Oxygen Content 11.9 Arterial Blood Carboxyhemoglobin 1.8 Arterial Blood Methemoglobin 0.8 Blood Gas Hemoglobin 9.3 Oxygen Delivery Device VENTILATOR Blood Gas Ventilator Setting 18/20IP/8PEEP Blood Gas Inspired Oxygen 100 Date/Time Source Procedure Growth Status 12/27/17 04:48 Blood Peripheral Aerobic Blood Culture Pending Received 12/27/17 04:48 Blood Peripheral Anaerobic Blood Culture Pending Received 12/27/17 04:30 Sputum Endotracheal Gram Stain Pending Received 12/27/17 04:30 Sputum Endotracheal Sputum Culture Pending Received 12/27/17 06:40 Urine Catheterized Urine Urine Culture Pending Received Radiology Last 48 hours Impressions Catheter Placement X-Ray 12/19/17 1302 Signed Impressions: Service Date/Time: Tuesday, December 19, 2017 13:50 - CONCLUSION: Uncomplicated line placement as above. Natanael Pino MD Thoracic Spine MRI 12/18/17 0950 Signed Impressions: Service Date/Time: Monday, December 18, 2017 15:16 - CONCLUSION: 1. The thoracic cord has normal signal and morphology throughout. 2. Mild, nonacute appearing superior endplate compression fractures of T3, T12 and L1. 3. No foraminal or spinal stenosis. 4. T9 vertebral body hemangioma. Daren Farr MD Cervical Spine MRI 12/18/17 0950 Signed Impressions: Service Date/Time: Monday, December 18, 2017 15:16 - CONCLUSION: 1. Faint, chronic appearing T2 signal abnormality throughout most of the central cervical cord. No abnormal enhancement or other evidence of an active/acute lesion. 2. Mild degenerative changes as above. There is no foraminal or spinal stenosis. Daren Farr MD Brain MRI 12/18/17 8350 Signed Impressions: Service Date/Time: Monday, December 18, 2017 15:16 - CONCLUSION: Moderate signal abnormality in the periventricular white matter with involvement of the corpus callosum in a pattern characteristic of multiple sclerosis. No recent infarct. No abnormal enhancement. Gilbert Turcios MD Abdomen: Non-tender Narrative Exam incision clean, intact no peritonitis or rebound tenderness A/P Assessment and Plan 57yo male s/p lap assisted right hemicolectomy for lower GI bleed and cancer, critically ill. The patient was transferred to ICU with aspiration, intubated/septic with hypoxemia due to aspiration abdomen soft, no signs of peritonitis, inc c/d/i unlikely has intra-abdominal process other than ileus, however would obtain CT scan when stable to further evaluate d/w Dr. Cruz d/w at bedside, all questions answered Wu Lamb MD Dec 27, 2017 11:13
[2017-12-27 11:41] LABS: MAGNESIUM 2.3 MG/DL (1.5-2.5); PHOSPHORUS 4.1 MG/DL (2.5-4.9)
[2017-12-27 11:45] LABS: TROPONIN I 0.02 NG/ML (0.02-0.05)
[2017-12-27] MEDS: HYDROCORTISONE SOD SUCCINATE 100 MG VIAL IV PUSH SCH ×2 (11:53→20:08)
[2017-12-27] MEDS: ACETAMINOPHEN 1000 MG/100 ML 100 ML IV PRN ×2 (12:39→20:08)
[2017-12-27] MEDS: ENOXAPARIN SODIUM 40 MG/0.4 ML SYRINGE SQ SCH (13:57)
--- NOTE | 2017-12-27 14:00 | HHI.PR ---
Subjective Subjective Notes Moved to [facility] overnight and intubated Patient had respiratory distress overnight Objective Vitals/I&O Vital Signs Date Time Temp Pulse Resp B/P (MAP) Pulse Ox O2 Delivery O2 Flow Rate FiO2 12/27/17 13:27 20 12/27/17 12:00 101.4 90 98/59 (72) 90 12/27/17 12:00 100 12/27/17 08:00 Mechanical Ventilator 12/27/17 02:14 8.00 Labs Laboratory Tests Test 12/27/17 02:16 12/27/17 04:34 12/27/17 05:00 12/27/17 06:40 Blood Gas Puncture Site RT RADIAL ART LINE Blood Gas Patient Temperature 98.6 98.6 Blood Gas HCO3 22 15 Blood Gas Base Excess -1.5 -8.4 Blood Gas Oxygen Saturation 91 88 Arterial Blood pH 7.48 7.46 Arterial Blood Partial Pressure CO2 30 21 Arterial Blood Partial Pressure O2 68 59 Arterial Blood Oxygen Content 14.0 12.1 Arterial Blood Carboxyhemoglobin 2.3 2.0 Arterial Blood Methemoglobin 0.8 0.7 Blood Gas Hemoglobin 10.9 9.7 Oxygen Delivery Device SM VENTILATOR Blood Gas Liter Flow 8 White Blood Count 5.2 Red Blood Count 4.35 Hemoglobin 9.6 Hematocrit 31.1 Mean Corpuscular Volume 71.6 Mean Corpuscular Hemoglobin 22.1 Mean Corpuscular Hemoglobin Concent 30.9 Red Cell Distribution Width 29.5 Platelet Count 440 Mean Platelet Volume 7.2 Neutrophils (%) (Auto) 81.7 Lymphocytes (%) (Auto) 14.1 Monocytes (%) (Auto) 3.6 Eosinophils (%) (Auto) 0.3 Basophils (%) (Auto) 0.3 Neutrophils # (Auto) 4.2 Lymphocytes # (Auto) 0.7 Monocytes # (Auto) 0.2 Eosinophils # (Auto) 0.0 Basophils # (Auto) 0.0 CBC Comment AUTO DIFF Differential Total Cells Counted 100 Neutrophils % (Manual) 25 Band Neutrophils % 55 Lymphocytes % 10 Monocytes % 6 Neutrophils # (Manual) 4.4 Metamyelocytes 4 Nucleated Red Blood Cells 1 Differential Comment FINAL DIFF MANUAL Toxic Granulation 1+ Dohle Bodies PRESENT Platelet Estimate NORMAL Platelet Morphology Comment NORMAL Polychromasia 2.2 Ovalocytes 1+ [place] Bodies PRESENT Acanthocytes OCC Blood Urea Nitrogen 26 Creatinine 2.03 Random Glucose 230 Total Protein 5.2 Albumin 1.8 Calcium Level 7.7 Alkaline Phosphatase 81 Aspartate Amino Transf (AST/SGOT) 18 Alanine Aminotransferase (ALT/SGPT) 24 Total Bilirubin 0.6 Sodium Level 132 Potassium Level 4.3 Chloride Level 94 Carbon Dioxide Level 20.8 Anion Gap 17 Estimat Glomerular Filtration Rate 34 Lactic Acid Level 3.6 Troponin I LESS THAN 0.02 Blood Gas Ventilator Setting PC/AC Blood Gas Inspired Oxygen 100 Urine Color YELLOW Urine Turbidity HAZY Urine pH 5.5 Urine Specific [place] 1.014 Urine Protein 30 Urine Glucose (UA) NEG Urine Ketones 40 Urine Occult Blood SMALL Urine Nitrite NEG Urine Bilirubin NEG Urine Urobilinogen 2.0 Urine Leukocyte Esterase MOD Urine RBC 13 Urine WBC 20 Urine Squamous Epithelial Cells 1 Urine Bacteria RARE Urine Hyaline Casts 11 Urine Mucus MANY Microscopic Urinalysis Comment CATH-CULTURE IND Test 12/27/17 06:50 12/27/17 07:18 12/27/17 10:55 Nasal Screen MRSA (PCR) MRSA NOT DETECTED Blood Gas Puncture Site ART LINE Blood Gas Patient Temperature 98.6 Blood Gas HCO3 17 Blood Gas Base Excess -6.2 Blood Gas Oxygen Saturation 90 Arterial Blood pH 7.44 Arterial Blood Partial Pressure CO2 26 Arterial Blood Partial Pressure O2 68 Arterial Blood Oxygen Content 11.9 Arterial Blood Carboxyhemoglobin 1.8 Arterial Blood Methemoglobin 0.8 Blood Gas Hemoglobin 9.3 Oxygen Delivery Device VENTILATOR Blood Gas Ventilator Setting 18/20IP/8PEEP Blood Gas Inspired Oxygen 100 Lactic Acid Level 5.3 Phosphorus Level 4.1 Magnesium Level 2.3 Total Creatine Kinase 40 Troponin I 0.02 Amylase Level 519 Lipase 75 Date/Time Source Procedure Growth Status 12/27/17 04:48 Blood Peripheral Aerobic Blood Culture Pending Received 12/27/17 04:48 Blood Peripheral Anaerobic Blood Culture Pending Received 12/27/17 04:30 Sputum Endotracheal Gram Stain - Final Resulted 12/27/17 04:30 Sputum Endotracheal Sputum Culture Pending Resulted 12/27/17 06:40 Urine Catheterized Urine Urine Culture Pending Received Radiology Last 48 hours Impressions Catheter Placement X-Ray 12/19/17 1302 Signed Impressions: Service Date/Time: Tuesday, December 19, 2017 13:50 - CONCLUSION: Uncomplicated line placement as above. Natanael Pino MD Thoracic Spine MRI 12/18/17949 Signed Impressions: Service Date/Time: Monday, December 18, 2017 15:16 - CONCLUSION: 1. The thoracic cord has normal signal and morphology throughout. 2. Mild, nonacute appearing superior endplate compression fractures of T3, T12 and L1. 3. No foraminal or spinal stenosis. 4. T9 vertebral body hemangioma. Daren Farr MD Cervical Spine MRI 12/[id number]/17949 Signed Impressions: Service Date/Time: Monday, December 18, 2017 15:16 - CONCLUSION: 1. Faint, chronic appearing T2 signal abnormality throughout most of the central cervical cord. No abnormal enhancement or other evidence of an active/acute lesion. 2. Mild degenerative changes as above. There is no foraminal or spinal stenosis. Daren Farr MD Brain MRI 12/18/17949 Signed Impressions: Service Date/Time: Monday, December 18, 2017 15:16 - CONCLUSION: Moderate signal abnormality in the periventricular white matter with involvement of the corpus callosum in a pattern characteristic of multiple sclerosis. No recent infarct. No abnormal enhancement. Gilbert Turcios MD Cardiovascular: Regular Lungs: Clear Abdomen: Other (midline incision with cally; OGT in place to LIWS; abd distention ) Extremities: Other (moderate generalized edema ) A/P Assessment and Plan 57 year old male with anemia; weakness; new finding of a large circumferential mass in the junction of the cecum to the ascending colon on colonoscopy -POD4 Lap partial colectomy -[facility] consult; intubated; on pressor support -Will plan to do CT abd/pelvis once stable -Continue antibiotics -Continue steroids -Ofirmev for fevers -Discussed with Dr. George Attending Statement The exam, history, and the medical decision-making described in the above note were completed with the assistance of the mid-level provider. I reviewed and agree with the findings presented. I attest that I had a [id number] encounter with the patient on the same day, and personally performed and documented my assessment and findings in the medical record. intubated overnight, suspected aspiration possible sepsis/pneumonia abdomen soft, non-distended, incision clean, intact will check CT scan to R/O any abdominal process, do not suspect an issue discussed with at bedside Jolene Pelayo/First Renetta FAGAN Dec 27, 2017 14:00 Wu Lamb MD Dec 29, 2017 13:36
[2017-12-27] MEDS: PHENYLEPHRINE INJ 160 MG in SODIUM CHLORID 0.9% 500 ML INJ 484 ML IV PRN (17:15)
[2017-12-27] MEDS: VASOPRESSIN INJ 40 UNITS in SODIUM CHLORIDE 0.9% INJ 98 ML IV SCH (18:17)
[2017-12-27] MEDS: SODIUM BICARBONATE 8.4% INJ 150 MEQ in WATER STERILE FOR INJ 850 ML IV SCH (18:17)
[2017-12-27 18:22] LABS: HEMATOCRIT 27.7 % (39.0-51.0); HEMOGLOBIN 8.7 GM/DL (13.0-17.0); MEAN CELL VOLUME 71.3 FL (80.0-100.0); MEAN CORPUSCULAR HEMOGLOBIN 22.4 PG (27.0-34.0); MEAN CORPUSCULAR HGB CONC 31.5 % (32.0-36.0); MEAN PLATELET VOLUME 7.2 FL (7.0-11.0); PLATELET COUNT 234 TH/MM3 (150-450); RED BLOOD COUNT 3.89 MIL/MM3 (4.50-5.90); RED CELL DISTRIBUTION WIDTH 29.2 % (11.6-17.2); WHITE BLOOD COUNT 6.9 TH/MM3 (4.0-11.0)
[2017-12-27 18:40] LABS: INTERNATIONAL NORMALIZED RATIO 1.2 RATIO; PROTHROMBIN TIME - PATIENT 11.8 SEC (9.8-11.6)
[2017-12-27 19:02] LABS: ALBUMIN 1.5 GM/DL (3.4-5.0); BICARBONATE 15.7 MEQ/L (21.0-32.0); CALCIUM-PROTEIN CORRECTED 8.1 MG/DL (8.5-10.1); CREATININE 3.17 MG/DL (0.60-1.30); MAGNESIUM 2.2 MG/DL (1.5-2.5); PHOSPHORUS 6.6 MG/DL (2.5-4.9); TOTAL BILIRUBIN ADULT 0.7 MG/DL (0.2-1.0)
--- NOTE | 2017-12-27 19:26 | PD.PROCEDR ---
Central Line Procedure REASON FOR PROCEDURE Central venous access PROCEDURE PERFORMED Central line placement: Left femoral CVL CONSENT Informed consent for procedure was not obtained and considered emergent due to hemodynamic instability/need for vasopressors and multiple medications. The risks and benefits of the procedure were discussed to include but limited to bleeding, clot formation, infection, and even . ANESTHESIA Local injection of 1% Lidocaine DESCRIPTION OF THE PROCEDURE The patient was placed in supine, mild Trendelenburg position. The area was exposed and cleansed with ChloraPrep, times two. Large sterile drape was used to cover the patient, with the site exposed, under sterile conditions including cap, face mask, sterile gown, and sterile gloves. On single attempt, the introducer needle was inserted with negative pressure in syringe and venous flash was obtained. The guide wire was then advanced without any restriction and the needle was removed. The dilator was used without any complications. Using Seldinger technique the antibiotic coated triple lumen catheter was advanced over the guide wire to a depth of 20 centimeters. The guide wire was removed. All ports were aspirated with dark venous blood return and flushed easily with sterile saline. All ports were capped. Antibiotic disc was placed around central line at puncture site. The central line was secured to the skin with two interrupted 2.0 silk sutures. The area was bandaged with sterile see- through central line bandage. RADIOLOGICAL DATA Ultrasound guidance was used to locate left femoral vein. Doppler/color flow was used to confirm venous flow. COMPLICATIONS: No apparent complications ESTIMATED BLOOD LOSS: Less than 1 cc. Devante Hinojosa MD Dec 27, 2017 19:26
--- NOTE | 2017-12-27 19:26 | PD.PROCEDR ---
Procedure Note Procedure DATE: 12/27/2017 PROCEDURE: Orotracheal intubation INDICATION: Acute hypoxemic respiratory failure DETAILS OF PROCEDURE The patient was placed in optimal position and preoxygenated with 100% FiO2 via bag valve mask. At the start oxygen saturation was 88%. The patient was administered 20 IV and 50 IV. I entered the oropharynx with a size 4 laryngoscope blade and obtained a grade 2 view of the airway. Patient had gross aspiration with suctioning throughout greenish liquid. Noted on single attempt a size 8.0 cuffed endotracheal tube was passed through the vocal cords. Correct tube location was confirmed with end tidal CO2 detector and by auscultating over bilateral lung ma. The endotracheal tube was secured with adhesive tape at a depth of 24 cm at the lips. The patient was connected to the ventilator. The patient tolerated the procedure well without any apparent complications. Oxygen saturations were maintained greater than 80% all times. STAT chest x-ray revealed adequate positioning of ET tube. Devante Hinojosa MD Dec 27, 2017 19:26
--- NOTE | 2017-12-27 19:27 | PD.PROCEDR ---
Procedure Note Procedure DATE: 12/27/2017 PROCEDURE: Left femoral arterial catheter placement INDICATION: Hemodynamic access DETAILS OF PROCEDURE The patient was placed in supine position. The skin was cleansed with Chloraprep. Additional barrier precautions included large sterile drape, sterile gloves, sterile gown, face mask, and hat. 1% lidocaine was used for local anesthesia. Under direct ultrasound guidance and on the initial attempt, the artery was accessed with an introducer needle. The guide wire was advanced. Using Seldinger technique 20 gauge arterial catheter was placed. The guide wire was removed. The catheter was connected to a transducer line and flushed with saline. The video monitor displayed normal arterial wave forms. The catheter was secured with 2-0 silk. A sterile dressing with antibiotic disc was applied. ESTIMATED BLOOD LOSS: minimal COMPLICATIONS: None Devante Hinojosa MD Dec 27, 2017 19:27
[2017-12-27] MEDS: ASCORBIC ACID 500 MG TAB PO SCH (20:09)
--- NOTE | 2017-12-27 21:12 | RADRPT ---
EXAM DATE/TIME: 12/27/2017 20:57 [facility] COMPARISON: CT ABDOMEN & PELVIS W CONTRAST, December 19, 2017, 21:45. INDICATIONS : Post operative right hemicolectomy. ORAL CONTRAST: Prescribed oral contrast ingested. RADIATION DOSE: 16.23 CTDIvol (mGy) MEDICAL HISTORY : Hypertension. Hernia. Multiple sclerosis. SURGICAL HISTORY : Right hemicolectomy ENCOUNTER: Initial ACUITY: 1 day PAIN SCALE: Non-responsive LOCATION: Right abdomen TECHNIQUE: Volumetric scanning of the abdomen and pelvis was performed. Using automated exposure control and ad justment of the mA and/or kV according to patient size, radiation dose was kept as low as reasonably achievable to obtain optimal diagnostic quality images. DICOM format image data is available electro nically for review and comparison. FINDINGS: LOWER LUNGS: Bibasilar consolidation. LIVER: Homogeneous density without lesion. There is no dilation of the biliary tree. No calcified gallston es. Small amount of ascites SPLEEN: Normal size without lesion. PANCREAS: Within normal limits. KIDNEYS: Normal in size and shape. There is no mass, stone, or hydronephrosis. ADRENAL GLANDS: Within normal limits. VASCULAR: There is no aortic aneurysm. BOWEL/MESENTERY: Mildly prominent small bowel loops in the left abdomen. Postsurgical changes with partial right hemic olectomy.. There is no free intraperitoneal air or fluid. ABDOMINAL WALL: Within normal limits. RETROPERITONEUM: There is no lymphadenopathy. BLADDER: No wall thickening or mass. REPRODUCTIVE: Within normal limits. INGUINAL: There is no lymphadenopathy or hernia. MUSCULOSKELETAL: Within normal limits for patient age. CONCLUSION: 1. Mildly prominent small bowel loops possible ileus. 2. Right hemicolectomy. 3. Small amount of ascites. 4. Bibasilar consolidation likely atelectasis. Shekhar Lewis MD on December 27, 2017 at 21:07 Board Certified Radiologist. This report was verified electronically.
[2017-12-28] VITALS (16 sets, daily range): BP systolic 94–133; BP diastolic 38–68; PULSE 86–129; RESP 16–19; TEMP 99–101.4; O2SAT 92–100
[2017-12-28] MEDS: RESP: ALBUTEROL 2.5 MG/IPRATROPIUM 0.5 MG NEB (SCH) INH ×6 (00:25→19:34)
[2017-12-28] MEDS: PIPERACIL-TAZO 4.5 GM PREMIX 100 ML IV SCH ×3 (00:36→12:09)
[2017-12-28] MEDS: INSULIN ASPART SUPPLEMENTAL SCALE SQ SCH ×6 (00:37→20:00)
[2017-12-28] MEDS ORDERED: CHLORHEXIDINE GLUCONATE 2 % 1 PACK (2 CLOTHS) TOP SCH (04:00)
[2017-12-28] MEDS: HYDROCORTISONE SOD SUCCINATE 100 MG VIAL IV PUSH SCH ×3 (04:12→20:00)
[2017-12-28] MEDS: ACETAMINOPHEN 1000 MG/100 ML 100 ML IV PRN (04:29)
[2017-12-28 05:12] LABS: AUTOMATED NEUTROPHIL # 8.5 TH/MM3 (1.8-7.7); BASOPHIL % 0.2 % (0.0-2.0); EOSINOPHIL # 0.1 TH/MM3 (0-0.4); EOSINOPHIL % 0.5 % (0.0-4.0); HEMATOCRIT 25.5 % (39.0-51.0); LYMPH % 10.9 % (9.0-44.0); LYMPHOCYTE # 1.1 TH/MM3 (1.0-4.8); MEAN CORPUSCULAR HGB CONC 31.5 % (32.0-36.0); MEAN PLATELET VOLUME 8.4 FL (7.0-11.0); MONO % 1.4 % (0.0-8.0); MONOCYTE # 0.1 TH/MM3 (0-0.9); PLATELET COUNT 190 TH/MM3 (150-450); RED BLOOD COUNT 3.63 MIL/MM3 (4.50-5.90); RED CELL DISTRIBUTION WIDTH 29.9 % (11.6-17.2); WHITE BLOOD COUNT 9.8 TH/MM3 (4.0-11.0)
[2017-12-28 05:22] LABS: INTERNATIONAL NORMALIZED RATIO 1.2 RATIO; PROTHROMBIN TIME - PATIENT 11.8 SEC (9.8-11.6)
[2017-12-28 05:24] LABS: ALBUMIN 1.5 GM/DL (3.4-5.0); BICARBONATE 20.7 MEQ/L (21.0-32.0); CALCIUM 6.6 MG/DL (8.5-10.1); CREATININE 3.7 MG/DL (0.60-1.30); MAGNESIUM 2.3 MG/DL (1.5-2.5); PHOSPHORUS 6.3 MG/DL (2.5-4.9)
[2017-12-28 05:30] LABS: CALCIUM-PROTEIN CORRECTED 7.7 MG/DL (8.5-10.1); RANDOM VANCOMYCIN 21.1 COMMENT; TOTAL BILIRUBIN ADULT 0.9 MG/DL (0.2-1.0); TOTAL PROTEIN 4.9 GM/DL (6.4-8.2)
[2017-12-28] MEDS: PHENYLEPHRINE INJ 160 MG in SODIUM CHLORID 0.9% 500 ML INJ 484 ML IV PRN (06:09)
[2017-12-28] MEDS: SODIUM BICARBONATE 8.4% INJ 150 MEQ in WATER STERILE FOR INJ 850 ML IV SCH ×2 (06:12→14:24)
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
[2017-12-28 06:33] LABS: BANDS 42 % (0-6); LYMPHOCYTES 14 % (9-44); METAMYELOCYTES 3 % (0-1); MONOCYTES 1 % (0-8); MYELOCYTES 1 % (0-0); NEUTROPHIL # MANUAL DIFF 8.3 TH/MM3 (1.8-7.7); POLYS (SEG NEUTROPHILS) 39 % (16-70)
[2017-12-28 06:34] LABS: DOHLE BODIES PRESENT (NONE SEEN); OVALOCYTES 1+ (NORMAL)
[2017-12-28 06:35] LABS: TOXIC GRANULATION 1+ (NORMAL)
[2017-12-28 06:37] LABS: POLYCHROMASIA 2.6 % (0.0-1.9)
[2017-12-28] MEDS: CHLORHEXIDINE 0.12% (ORAL KIT) 15 ML CUP MT SCH ×2 (08:09→20:00)
[2017-12-28] MEDS: DIMETHYL FUMARATE 240 MG PO SCH (08:10)
[2017-12-28] MEDS: ARTIFICIAL TEARS OPTH SOLN 15 ML BTL EACH EYE SCH ×3 (08:10→16:39)
[2017-12-28] MEDS: SODIUM CHLORIDE 0.9% FLUSH 10 ML FLUSH IV FLUSH SCH ×3 (08:10→21:00)
[2017-12-28] MEDS: CHOLECALCIFEROL (VIT D3) 1000 UNIT TAB PO SCH (08:31)
[2017-12-28] MEDS: CYANOCOBALAMIN 1,000 MCG TAB PO SCH (08:31)
[2017-12-28] MEDS: PANTOPRAZOLE SODIUM 40 MG VIAL IV PUSH SCH ×2 (08:31→20:00)
[2017-12-28] MEDS: fentaNYL 2,500 MCG/NS 250 ML IV PRN (08:32)
[2017-12-28] MEDS ORDERED: ENOXAPARIN SODIUM 30 MG/0.3 ML SYRINGE SQ SCH (09:00)
[2017-12-28] MEDS: VASOPRESSIN INJ 40 UNITS in SODIUM CHLORIDE 0.9% INJ 98 ML IV SCH (10:44)
--- NOTE | 2017-12-28 12:27 | HHI.PR ---
Subjective Subjective Notes Intubated Able to respond to yes and no questions Objective Vitals/I&O Vital Signs Date Time Temp Pulse Resp B/P (MAP) Pulse Ox O2 Delivery O2 Flow Rate FiO2 12/28/17 12:00 100 55 12/28/17 10:44 92 111/46 12/28/17 08:00 101.0 19 12/28/17 07:00 Mechanical Ventilator 12/27/17 02:14 8.00 Labs Laboratory Tests Test 12/27/17 17:45 12/27/17 19:37 12/28/17 00:25 12/28/17 04:50 White Blood Count 6.9 9.8 Red Blood Count 3.89 3.63 Hemoglobin 8.7 8.0 Hematocrit 27.7 25.5 Mean Corpuscular Volume 71.3 70.0 Mean Corpuscular Hemoglobin 22.4 22.0 Mean Corpuscular Hemoglobin Concent 31.5 31.5 Red Cell Distribution Width 29.2 29.9 Platelet Count 234 190 Mean Platelet Volume 7.2 8.4 Prothrombin Time 11.8 11.8 Prothromb Time International Ratio 1.2 1.2 Activated Partial Thromboplast Time 28.2 28.9 Blood Urea Nitrogen 31 35 Creatinine 3.17 3.70 Random Glucose 285 141 Total Protein 5.0 4.9 Albumin 1.5 1.5 Calcium Level 7.0 6.6 Phosphorus Level 6.6 6.3 Magnesium Level 2.2 2.3 Alkaline Phosphatase 127 109 Aspartate Amino Transf (AST/SGOT) 446 714 Alanine Aminotransferase (ALT/SGPT) 315 602 Total Bilirubin 0.7 0.9 Sodium Level 133 134 Potassium Level 4.2 4.1 Chloride Level 100 98 Carbon Dioxide Level 15.7 20.7 Anion Gap 17 15 Estimat Glomerular Filtration Rate 20 17 Lactic Acid Level 7.0 5.9 5.3 Protein Corrected Calcium 8.1 7.7 Blood Gas Puncture Site ART LINE Blood Gas Patient Temperature 98.6 Blood Gas HCO3 15 Blood Gas Base Excess -9.2 Blood Gas Oxygen Saturation 97 Arterial Blood pH 7.39 Arterial Blood Partial Pressure CO2 25 Arterial Blood Partial Pressure O2 204 Arterial Blood Oxygen Content 11.9 Arterial Blood Carboxyhemoglobin 1.6 Arterial Blood Methemoglobin 0.8 Blood Gas Hemoglobin 8.4 Oxygen Delivery Device VENTILATOR Blood Gas Ventilator Setting SEE COMMENTS Blood Gas Inspired Oxygen 80 Neutrophils (%) (Auto) 87.0 Lymphocytes (%) (Auto) 10.9 Monocytes (%) (Auto) 1.4 Eosinophils (%) (Auto) 0.5 Basophils (%) (Auto) 0.2 Neutrophils # (Auto) 8.5 Lymphocytes # (Auto) 1.1 Monocytes # (Auto) 0.1 Eosinophils # (Auto) 0.1 Basophils # (Auto) 0.0 CBC Comment AUTO DIFF Differential Total Cells Counted 100 Neutrophils % (Manual) 39 Band Neutrophils % 42 Lymphocytes % 14 Monocytes % 1 Neutrophils # (Manual) 8.3 Metamyelocytes 3 Myelocytes 1 Differential Comment FINAL DIFF MANUAL Toxic Granulation 1+ Dohle Bodies PRESENT Platelet Estimate NORMAL Platelet Morphology Comment NORMAL Polychromasia 2.6 Basophilic Stippling FAINT Ovalocytes 1+ Random Vancomycin Level 21.1 Date/Time Source Procedure Growth Status 12/27/17 04:48 Blood Peripheral Aerobic Blood Culture - Preliminary Gram Positive Cocci Resulted 12/27/17 04:48 Anaerobic Blood Culture - Preliminary Gram Positive Cocci Resulted 12/27/17 04:30 Sputum Endotracheal Gram Stain - Final Resulted 12/27/17 04:30 Sputum Culture - Preliminary Gram Negative Selvin Resulted 12/27/17 06:40 Urine Catheterized Urine Urine Culture - Preliminary NO GROWTH IN 24 HOURS. Resulted Radiology Last 48 hours Impressions Catheter Placement X-Ray 12/19/17 1302 Signed Impressions: Service Date/Time: Tuesday, December 19, 2017 13:50 - CONCLUSION: Uncomplicated line placement as above. Natanael Pino MD Thoracic Spine MRI 12/18/17 0950 Signed Impressions: Service Date/Time: Monday, December 18, 2017 15:16 - CONCLUSION: 1. The thoracic cord has normal signal and morphology throughout. 2. Mild, nonacute appearing superior endplate compression fractures of T3, T12 and L1. 3. No foraminal or spinal stenosis. 4. T9 vertebral body hemangioma. Daren Farr MD Cervical Spine MRI 12/18/17 0977 Signed Impressions: Service Date/Time: Monday, December 18, 2017 15:16 - CONCLUSION: 1. Faint, chronic appearing T2 signal abnormality throughout most of the central cervical cord. No abnormal enhancement or other evidence of an active/acute lesion. 2. Mild degenerative changes as above. There is no foraminal or spinal stenosis. Daren Farr MD Brain MRI 12/18/17 0950 Signed Impressions: Service Date/Time: Monday, December 18, 2017 15:16 - CONCLUSION: Moderate signal abnormality in the periventricular white matter with involvement of the corpus callosum in a pattern characteristic of multiple sclerosis. No recent infarct. No abnormal enhancement. Gilbert Turcios MD Cardiovascular: Regular Lungs: Clear Abdomen: Other (Midline incision with cally; mildly distended ) Extremities: Other (moderate generalized edema ) A/P Assessment and Plan 57 year old male with anemia; weakness; new finding of a large circumferential mass in the junction of the cecum to the ascending colon on colonoscopy -POD5 Lap partial colectomy -[facility] consult; intubated; on pressor support -Nephrology consult for increased BUN/Cr -Repeat CT abd/pelvis shows no acute process -Continue antibiotics -Continue steroids -Ofirmev for fevers -Dr. Lamb reviewed pathology with Attending Statement The exam, history, and the medical decision-making described in the above note were completed with the assistance of the mid-level provider. I reviewed and agree with the findings presented. I attest that I had a [id number] encounter with the patient on the same day, and personally performed and documented my assessment and findings in the medical record. patient still very sick, critically ill on vent Path shows aggressive disease (stage III), d/w with on phone CT scan shows no signs of complications or leak, doubt abdomen as source of infection, likely 2/2 aspiration related to patients MS continue supportive care per [facility], will follow along d/w , d/w critical care Jolene Pelayo [employer]/Internal Salesperson [employer] Dec 28, 2017 12:27 Wu Lamb MD Dec 29, 2017 13:40
[2017-12-28] MEDS: NOREPINEPHRINE INJ 16 MG in SODIUM CHLOR 0.9% 250 ML INJ 234 ML IV PRN (13:23)
--- NOTE | 2017-12-28 14:23 | PD.ONC.PN ---
Subjective Subjective Remarks T-max 101.4 overnight Patient intubated and on 3 vasopressors He is quite alert on exam as he is only on Precedex for sedation Multiple family members at bedside Discussed that plans to treat his colon cancer will be placed on hold until he is more stable Objective Data Date Time Temp Pulse Resp B/P (MAP) Pulse Ox O2 Delivery O2 Flow Rate FiO2 12/28/17 14:00 102 12/28/17 13:23 102 108/43 12/28/17 12:00 55 12/28/17 12:00 96 12/28/17 12:00 100 55 12/28/17 12:00 100.0 96 19 106/44 (64) 100 12/28/17 10:44 92 111/46 12/28/17 10:00 98 12/28/17 08:00 91 12/28/17 08:00 65 12/28/17 08:00 101.0 88 19 116/54 (74) 100 12/28/17 07:38 97 65 12/28/17 07:00 100 Mechanical Ventilator 65 12/28/17 06:09 89 115/56 12/28/17 04:05 99 65 12/28/17 04:00 100 12/28/17 04:00 101.4 93 18 123/59 (80) 100 12/28/17 00:25 100 70 12/28/17 00:00 100 12/28/17 00:00 100.9 86 18 108/68 (81) 100 12/27/17 23:00 85 12/27/17 20:00 101.6 85 20 101/65 (77) 100 12/27/17 20:00 100 12/27/17 19:28 100 80 12/27/17 19:00 100 Mechanical Ventilator 12/27/17 18:17 84 94/50 12/27/17 18:00 88 12/27/17 17:15 90 100/55 12/27/17 16:00 100 12/27/17 16:00 102.0 84 22 100/84 (89) 100 12/27/17 15:33 99 100 12/27/17 15:00 86 12/28/17 12/28/17 12/28/17 07:00 15:00 23:00 Intake Total 1534 ml 700 ml Output Total 500 ml Balance 1034 ml 700 ml Result Diagram: 12/28/17 0450 12/28/17 0450 Laboratory Results Laboratory Tests Test 12/27/17 17:45 12/27/17 19:37 12/28/17 00:25 12/28/17 04:50 White Blood Count 6.9 TH/MM3 9.8 TH/MM3 Red Blood Count 3.89 MIL/MM3 3.63 MIL/MM3 Hemoglobin 8.7 GM/DL 8.0 GM/DL Hematocrit 27.7 % 25.5 % Mean Corpuscular Volume 71.3 FL 70.0 FL Mean Corpuscular Hemoglobin 22.4 PG 22.0 PG Mean Corpuscular Hemoglobin Concent 31.5 % 31.5 % Red Cell Distribution Width 29.2 % 29.9 % Platelet Count 234 TH/MM3 190 TH/MM3 Mean Platelet Volume 7.2 FL 8.4 FL Prothrombin Time 11.8 SEC 11.8 SEC Prothromb Time International Ratio 1.2 RATIO 1.2 RATIO Activated Partial Thromboplast Time 28.2 SEC 28.9 SEC Blood Urea Nitrogen 31 MG/DL 35 MG/DL Creatinine 3.17 MG/DL 3.70 MG/DL Random Glucose 285 MG/DL 141 MG/DL Total Protein 5.0 GM/DL 4.9 GM/DL Albumin 1.5 GM/DL 1.5 GM/DL Calcium Level 7.0 MG/DL 6.6 MG/DL Phosphorus Level 6.6 MG/DL 6.3 MG/DL Magnesium Level 2.2 MG/DL 2.3 MG/DL Alkaline Phosphatase 127 U/L 109 U/L Aspartate Amino Transf (AST/SGOT) 446 U/L 714 U/L Alanine Aminotransferase (ALT/SGPT) 315 U/L 602 U/L Total Bilirubin 0.7 MG/DL 0.9 MG/DL Sodium Level 133 MEQ/L 134 MEQ/L Potassium Level 4.2 MEQ/L 4.1 MEQ/L Chloride Level 100 MEQ/L 98 MEQ/L Carbon Dioxide Level 15.7 MEQ/L 20.7 MEQ/L Anion Gap 17 MEQ/L 15 MEQ/L Estimat Glomerular Filtration Rate 20 ML/MIN 17 ML/MIN Lactic Acid Level 7.0 mmol/L 5.9 mmol/L 5.3 mmol/L Protein Corrected Calcium 8.1 MG/DL 7.7 MG/DL Blood Gas Puncture Site ART LINE Blood Gas Patient Temperature 98.6 Blood Gas HCO3 15 mmol/L Blood Gas Base Excess -9.2 mmol/L Blood Gas Oxygen Saturation 97 % Arterial Blood pH 7.39 Arterial Blood Partial Pressure CO2 25 mmHg Arterial Blood Partial Pressure O2 204 mmHg Arterial Blood Oxygen Content 11.9 Vol % Arterial Blood Carboxyhemoglobin 1.6 % Arterial Blood Methemoglobin 0.8 % Blood Gas Hemoglobin 8.4 G/DL Oxygen Delivery Device VENTILATOR Blood Gas Ventilator Setting SEE COMMENTS Blood Gas Inspired Oxygen 80 % Neutrophils (%) (Auto) 87.0 % Lymphocytes (%) (Auto) 10.9 % Monocytes (%) (Auto) 1.4 % Eosinophils (%) (Auto) 0.5 % Basophils (%) (Auto) 0.2 % Neutrophils # (Auto) 8.5 TH/MM3 Lymphocytes # (Auto) 1.1 TH/MM3 Monocytes # (Auto) 0.1 TH/MM3 Eosinophils # (Auto) 0.1 TH/MM3 Basophils # (Auto) 0.0 TH/MM3 CBC Comment AUTO DIFF Differential Total Cells Counted 100 Neutrophils % (Manual) 39 % Band Neutrophils % 42 % Lymphocytes % 14 % Monocytes % 1 % Neutrophils # (Manual) 8.3 TH/MM3 Metamyelocytes 3 % Myelocytes 1 % Differential Comment FINAL DIFF MANUAL Toxic Granulation 1+ Dohle Bodies PRESENT Platelet Estimate NORMAL Platelet Morphology Comment NORMAL Polychromasia 2.6 % Basophilic Stippling FAINT Ovalocytes 1+ Random Vancomycin Level 21.1 COMMENT Culture Results Microbiology Date/Time Source Procedure Growth Status 12/27/17 04:48 Blood Peripheral Aerobic Blood Culture - Preliminary Enterococcus Faecalis Resulted 12/27/17 04:48 Anaerobic Blood Culture - Preliminary Gram Positive Cocci Resulted 12/27/17 04:45 Blood Peripheral Aerobic Blood Culture - Preliminary Gram Positive Cocci Resulted 12/27/17 04:45 Anaerobic Blood Culture - Preliminary Gram Positive Cocci Resulted 12/27/17 04:30 Sputum Endotracheal Gram Stain - Final Resulted 12/27/17 04:30 Sputum Culture - Preliminary Gram Negative Selvin Resulted 12/27/17 06:40 Urine Catheterized Urine Urine Culture - Preliminary NO GROWTH IN 24 HOURS. Resulted Imaging Studies Last 24 hours Impressions Chest X-Ray 12/28/17 0000 Signed Impressions: Service Date/Time: Thursday, December 28, 2017 04:25 - CONCLUSION: Left base consolidation developing. Right base consolidation not significantly changed. Daren Farr MD Administered Medications Medications (Trade) Dose Ordered Sig/Karina Route PRN Reason Start Time Stop Time Status Last Admin Dose Admin Magnesium Hydroxide (Milk Of Magnesia Liq) 30 ml Q12H PRN PO Mild constipation 12/17/17 18:30 12/26/17 12:04 Sennosides (Senokot) 17.2 mg Q12H PRN PO Moderate constipation 12/17/17 18:30 12/25/17 20:28 Lactulose (Lactulose Liq) 30 ml DAILY PRN PO SEVERE CONSITIPATION 12/17/17 18:30 12/26/17 05:18 Pantoprazole Sodium (Protonix Inj) 40 mg Q12H IV PUSH 12/17/17 20:00 12/28/17 08:31 Cholecalciferol (Vitamin D3) 500 units DAILY PO 12/18/17 09:00 12/28/17 08:31 Ascorbic Acid (Vitamin C) 500 mg HS PO 12/17/17 21:00 12/27/17 20:09 Patient Own Medication PT OWN MED:(Dimethyl Fumar... BID PO 12/17/17 21:00 12/26/17 08:05 Methylprednisolone Sodium Succinate (SoluMEDROL INJ) 125 mg EVERY OTHER DAY IV PUSH 12/19/17 09:00 12/31/17 09:01 12/21/17 10:50 Famotidine (Pepcid Inj) 20 mg EVERY OTHER DAY IV PUSH 12/19/17 09:00 12/31/17 09:01 12/23/17 08:14 Cyanocobalamin (Vitamin B12) 1,000 mcg DAILY PO 12/22/17 09:00 12/28/17 08:31 Morphine Sulfate (Morphine Inj) 2 mg Q3H PRN IV PUSH BREAKTHROUGH PAIN 12/24/17 18:45 12/25/17 22:00 Fentanyl Citrate 250 ml @ 5 mls/hr TITRATE PRN IV Sedation 12/27/17 04:00 12/28/17 08:32 Hydrocortisone Sodium Succinate (SoluCORTEF INJ) 100 mg Q8H IV PUSH 12/27/17 12:00 12/28/17 12:09 Sodium Chloride (NS Flush) 2 ml BID IV FLUSH 12/27/17 09:00 12/28/17 08:10 Artificial Tears (Tears Naturale Opth Soln) 1 drop TID EACH EYE 12/27/17 09:00 12/28/17 12:09 Albuterol/ Ipratropium (Duoneb Neb) 1 ampule Q4HR NEB INH 12/27/17 08:00 12/28/17 12:00 Chlorhexidine Gluconate (Peridex 0.12% Liq) 15 ml BID@08,20 MT 12/27/17 08:00 12/28/17 08:09 Piperacillin Sod/ Tazobactam Sod 100 ml @ 200 mls/hr Q6H IV 12/27/17 06:00 12/28/17 12:09 Insulin Aspart (NovoLOG SUPPLEMENTAL SCALE) 1 Q4HR SQ 12/27/17 08:00 12/28/17 04:14 Norepinephrine Bitartrate 16 mg/ Sodium Chloride 250 ml @ 1.87 mls/hr TITRATE PRN IV Blood pressure management 12/27/17 09:45 12/28/17 13:23 Acetaminophen 100 ml @ 400 mls/hr Q6H PRN IV fever > 100.4 12/27/17 10:15 12/28/17 04:29 Phenylephrine HCl 160 mg/Sodium Chloride 500 ml @ 7.5 mls/hr TITRATE PRN IV Blood pressure management 12/27/17 17:00 12/28/17 06:09 Sodium Bicarbonate 150 meq/Sterile Water 1,000 ml @ 100 mls/hr Q10H IV 12/27/17 18:00 12/28/17 06:12 Vasopressin 40 units/Sodium Chloride 100 ml @ 6 mls/hr [id number] IV 12/27/17 18:00 12/28/17 10:44 Enoxaparin Sodium (Lovenox Inj) 30 mg DAILY SQ 12/28/17 09:00 12/28/17 09:21 Objective Remarks GENERAL: Older male, resting in bed intubated and awake SKIN: Warm and dry. HEAD: Normocephalic. EYES: No injection or drainage. NECK: Supple, trachea midline. CARDIOVASCULAR: Regular rate and rhythm without murmurs. RESPIRATORY: Mechanically ventilated. Lungs clear anteriorly. GASTROINTESTINAL: Small vertical incision. Scant dried blood noted on dressing. Hypoactive BS. EXTREMITIES: No cyanosis, or edema. MUSCULOSKELETAL: Adequate muscle tone. NEUROLOGICAL: Moving all extremities. Intubated. Assessment/Plan Problem List: (1) Colonic mass ICD Codes: K63.9 - Disease of intestine, unspecified Plan: --colon mass seen during colonoscopy on 12/19, biopsy pathology shows adenocarcinoma. --Large circumferential mass in the junction of the cecum to the ascending colon consistent with cancer biopsy was done -- Pt had resection on 12/23; Pathology from colon resection shows poorly differentiated adenocarcinoma. 4 out of 12 lymph nodes were involved. (2) Multiple sclerosis exacerbation ICD Codes: G35 - Multiple sclerosis Status: Acute Plan: --hematology consulted to coordinate plasma exchange. --will place on hold until decision is made in terms of colectomy, now with new colon mass. Assessment 57y/o male with MS exacerbation. Hematology consulted for plasma exchange. h/o Hyperglycemia/borderline diabetes. Hypertension. Hyperlipidemia. Iron deficiency anemia. Suspected gastrointestinal bleed. Plan 1. Patient now intubated after apparent aspiration 2. He appears to have stage III locally advanced colon cancer 3. Will discuss chemo after he improves from current situation Attending Statement The exam, history, and the medical decision-making described in the above note were completed with the assistance of the mid-level provider. I reviewed and agree with the findings presented. I attest that I had a [id number] encounter with the patient on the same day, and personally performed and documented my assessment and findings in the medical record. intubated and sedated family members not present colon adenocarcinoma with LN involvement would recommend adjuvant chemotherapy once recovers outpatient evaluation for further treatment Mandi Garcia Dec 28, 2017 14:23 Santi Mitchell MD Dec 28, 2017 22:09
[2017-12-28] MEDS ORDERED: Vancomycin Consult Pharmacy 1 EA OTHER SCH (16:30)
[2017-12-28] MEDS ORDERED: MIDAZOLAM 100 MG/100 ML INJ 100 ML IV PRN (16:30)
[2017-12-28] MEDS: ALBUMIN 5% INJ 250 ML IV SCH ×2 (16:39→22:19)
[2017-12-28 16:42] LABS: AMORPHOUS SEDIMENT, URINE RARE; BACTERIA, URINE OCC /hpf; BILIRUBIN, URINE NEG (NEG); BLOOD, URINE MOD (NEG); GLUCOSE,URINE NEG (NEG); KETONE, URINE NEG (NEG); NITRITE,URINE NEG (NEG); PH, URINE 5.5 (5.0-8.5); SQUAMOUS EPITHELIAL CELL URINE <1 /hpf (0-5); URINE COLOR YELLOW (YELLW/STRAW); URINE LEUKOCYTE ESTERASE NEG (NEG)
[2017-12-28] MEDS ORDERED: RASS Change Order XX ONE (16:45)
--- NOTE | 2017-12-28 16:48 | HHI.CCPN ---
Subjective Remarks/Hospital Course 12/27: This is a 57-year-old male. Previously DNR status. Date of admission 12/19/2017. Past medical history includes secondary progressive MS mainly ataxia, diabetes notes, dyslipidemia, hyperglycemia, iron deficiency anemia and hypertension. Patient was originally admitted to the [facility] on 12/19 with exacerbation of MS. Patient was originally hospitalized from 12/05-12/07 for MS exacerbation and treated with methylprednisolone succinate patient For exacerbation of MS patient was seen in consultation by neurology who consulted hematology for exchange plasmapheresis. The Vas-Cath has been placed but is currently on hold due to his underlying illness. Hematology still actively following and patient is on iron sucrose Patient was seen by gastroenterology due to anemia. Patient underwent a colonoscopy and EGD on 12/[address] Lopez. 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 Snare polypectomy to the transverse colon which showed hyperplastic polyp. General surgery was consulted. On 12/23 patient underwent a right hemicolectomy with Dr. Monaco On morning of 12/27, patient became more lethargic and acutely short of breath. Chest x-ray revealed worsening infiltrates. Patient was transferred to the ICU where he required emergent intubation. Patient aspirated approximately 1800 cc and was intubated. Currently on multiple vasopressors and critically ill. 12/28: Awake, following commands, orally intubated on mechanical ventilation. Remains on high doses of pressors including Levophed 20 mics per minute, Cliff- Synephrine 300 mics per minute, vasopressin 0.04 U/min. Borderline urine output with rising BUN/creatinine noted. Blood cultures growing Enterococcus faecalis from 12/27 and sputum cultures growing gram-negative rods. Objective Vital Signs Date Time Temp Pulse Resp B/P (MAP) Pulse Ox O2 Delivery O2 Flow Rate FiO2 12/28/17 15:23 95 55 12/28/17 14:00 102 12/28/17 13:23 108/43 12/28/17 12:00 100.0 19 12/28/17 07:00 Mechanical Ventilator 12/27/17 02:14 8.00 Intake and Output 12/28/17 12/28/17 12/29/17 08:00 16:00 00:00 Intake Total 1534 ml 1700 ml Output Total 500 ml Balance 1034 ml 1700 ml Result Diagram: 12/28/17 0450 12/28/17 0450 Other Results Laboratory Tests Test 12/27/17 19:37 Blood Gas Puncture Site ART LINE Blood Gas Patient Temperature 98.6 Blood Gas HCO3 15 mmol/L (22-26) Blood Gas Base Excess -9.2 mmol/L (-2-2) Blood Gas Oxygen Saturation 97 % (90-100) Arterial Blood pH 7.39 (7.380-7.420) Arterial Blood Partial Pressure CO2 25 mmHg (38-42) Arterial Blood Partial Pressure O2 204 mmHg (61-120) Arterial Blood Oxygen Content 11.9 Vol % (12.0-20.0) Arterial Blood Carboxyhemoglobin 1.6 % (0-4) Arterial Blood Methemoglobin 0.8 % (0-2) Blood Gas Hemoglobin 8.4 G/DL (12.0-16.0) Oxygen Delivery Device VENTILATOR Blood Gas Ventilator Setting SEE COMMENTS Blood Gas Inspired Oxygen 80 % Imaging CT Abd/Pelvis 12/28: Ileus, bibasilar consolidation, small ascites Last 24 hours Impressions Chest X-Ray 12/28/17 0000 Signed Impressions: Service Date/Time: Thursday, December 28, 2017 04:25 - CONCLUSION: Left base consolidation developing. Right base consolidation not significantly changed. Daren Farr MD Last Impressions Chest X-Ray 12/27/17 0000 Signed Impressions: Service Date/Time: Wednesday, December 27, 2017 02:57 - CONCLUSION: Right greater than left basilar consolidation worsening. Daren Farr MD Abdomen X-Ray 12/26/17 0000 Signed Impressions: Service Date/Time: Tuesday, December 26, 2017 14:50 - CONCLUSION: 1. Findings consistent with moderate adynamic ileus versus developing partial small bowel obstruction. Natanael Pino MD Catheter Placement X-Ray 12/19/17 1302 Signed Impressions: Service Date/Time: Tuesday, December 19, 2017 13:50 - CONCLUSION: Uncomplicated line placement as above. Natanael Pino MD Abdomen/Pelvis CT 12/19/17 0000 Signed Impressions: Service Date/Time: Tuesday, December 19, 2017 21:45 - CONCLUSION: 1. No acute findings on abdomen and pelvic CT. The bladder is mildly this ended with mild bladder wall thickening. Fatty liver. Small hiatal hernia. Gilbert Turcios MD Thoracic Spine MRI 12/18/17 0950 Signed Impressions: Service Date/Time: Monday, December 18, 2017 15:16 - CONCLUSION: 1. The thoracic cord has normal signal and morphology throughout. 2. Mild, nonacute appearing superior endplate compression fractures of T3, T12 and L1. 3. No foraminal or spinal stenosis. 4. T9 vertebral body hemangioma. Daren Farr MD Cervical Spine MRI 12/18/17 4050 Signed Impressions: Service Date/Time: Monday, December 18, 2017 15:16 - CONCLUSION: 1. Faint, chronic appearing T2 signal abnormality throughout most of the central cervical cord. No abnormal enhancement or other evidence of an active/acute lesion. 2. Mild degenerative changes as above. There is no foraminal or spinal stenosis. Daren Farr MD Brain MRI 12/18/17 8250 Signed Impressions: Service Date/Time: Monday, December 18, 2017 15:16 - CONCLUSION: Moderate signal abnormality in the periventricular white matter with involvement of the corpus callosum in a pattern characteristic of multiple sclerosis. No recent infarct. No abnormal enhancement. Gilbert Turcios MD Procedures s/p endoscopic resection on 12/23/17 Objective Remarks GENERAL: 57-year-old male critically ill currently orotracheally intubated SKIN: Warm and dry. HEAD: Atraumatic. Normocephalic. EYES: Pupils equal and round about 2 mm bilaterally and reactive. No scleral icterus. No injection or drainage. ENT: No nasal bleeding or discharge. Mucous membranes pink and moist. NECK: Trachea midline. No JVD. Right IJ hemodialysis catheter is clean dry and intact CARDIOVASCULAR: Tachycardic, RR. S1, S2 regular without murmur RESPIRATORY: Orally intubated on mechanical ventilation, good air entry bilaterally, scattered rhonchi, no wheezing or crackles. GASTROINTESTINAL: Abdomen soft, n slightly tender to palpation. 2 cally in umbilicus. Dressing midline is clean dry and intact.. MUSCULOSKELETAL: Extremities trace lower extremity edema edema. No obvious deformities. NEUROLOGICAL: Awake, alert, following commands. Orally intubated on mechanical ventilation. Grossly nonfocal A/P Assessment and Plan Neuro/Psych: Acute encephalopathy/toxic metabolic Secondary progressive MS mainly ataxia Versed/fentanyl for sedation/analgesia as needed with daily sedation vacation. Stop propofol in view of hypotension. Goal of RASS of -2 Evaluated by neurology/Dr. Abraham. Previously on dimethyl fumarate 240 mg twice daily Was to receive plasmapheresis but is currently on hold. His steroid appear to be on hold as well. MRI brain 12/18 this admission revealed changes in the periventricular white matter on the corpus callosum indicative of multiple sclerosis EEG revealed some frontal alpha sharps otherwise negative Acetaminophen 600 mg 2 every 6 hours as needed fever CV: Septic shock History of hypertension History of dyslipidemia Currently on titrating dosages of norepinephrine, phenylephrine and vasopressin to maintain mean arterial pressure greater than equal to 65 Remains on IV fluids. IV albumin every 6 hourly 8 doses ordered on 12/28. Holding antihypertensive medications of propranolol and losartan while on vasopressors Holding atorvastatin 40 mg by tube daily for dyslipidemia. Serial lactates. Resp: Acute hypoxemic respiratory failure secondary to aspiration PCV-VG 500/16/50%/PEEP+8 Ventilator bundle Albuterol/ipratropium aerosols every 6 hours with albuterol aerosols every 2 hours as needed dyspnea Follow postintubation chest x-ray and ABG Chest x-ray prior to intubation revealed bilateral lower lobe infiltrates GI: Postop day #5 right hemicolectomy secondary to adenocarcinoma of the cecum Grade D esophagitis History of duodenal ulcer Hyperplastic polyps OGT to LIWS Pantoprazole 40 mg IV twice daily CT abdomen pelvis with no evidence of leak. : Overflow incontinence Perez catheter placement Holding oxybutynin 10 mg a.m. 5 mg at bedtime Endo: Diabetes mellitus Holding metformin thousand milligrams twice daily and glipizide 25 mg twice daily Sliding scale insulin with NovoLog/medium protocol with Accu-Cheks every 6 hours to maintain euglycemia Renal: Strict intake output, monitor and replete electrolytes, follow BN creatinine. Worsening BUN/creatinine noted. Nephrology consulted as patient may require renal replacement therapy. Continue bicarb drip. Check UA, urine sodium and creatinine. Heme: History of iron deficiency anemia Status post iron sucrose 200 mg IV from 12/25-12/27 ID: Day #2 piperacillin/tazobactam and vancomycin, vancomycin pharmacy consult ordered. Blood cultures growing Enterococcus faecalis from 12/27. Sputum cultures with gram-negative rods from 12/27. ID consult requested for septic shock with enterococcus bacteremia, aspiration pneumonia Repeat blood cultures on 12/29. FEN: Replace electrolytes as clinically indicated per ICU electrolyte protocol MSK: PT evaluate and treat Access -Left femoral central line placed 12/27. Left femoral A-line placed 12/27 Prophylaxis -GI -pantoprazole -DVT -SCD/enoxaparin Condition remains critical with septic shock, multiorgan failure with high pressor requirement with worsening renal failure. Discussed with patient's at bedside and updated regarding current clinical status and plan of care and she voiced understanding and was agreeable. Critical Care: The total critical care time was 35 minutes. Time to perform other separately billable procedures was not included in the critical care time. Mario George MD Dec 28, 2017 16:48
[2017-12-28] MEDS ORDERED: SODIUM CHLOR 0.9% 1000 ML INJ 1,000 ML IV ONE ×2 (17:00→18:15)
--- NOTE | 2017-12-28 17:07 | PD.CONS ---
HPI Consult Requested By Reason for Consult Acute renal insufficiency. Primary Care Physician Cinthia Meade MD History of Present Illness This patient is a 57-year-old male with a history of hypertension, multiple sclerosis as well as diabetes mellitus. Patient was being considered for plasmapheresis by neurology for management of his MS however noted to have iron deficiency anemia and underwent colonoscopy which revealed a cecal mass. Biopsy revealed adenocarcinoma. Patient now status post right hemicolectomy performed on December 24, 2017. Unfortunately yesterday the patient developed respiratory distress as well as septic shock with blood cultures revealing the presence of Enterococcus faecalis. There is also mention of aspiration. Patient now intubated on ventilatory support requiring free inotropic agents for blood pressure support. Patient unable to provide any history at this time. Creatinine level noted to have been 1.0 December 25, 2017 subsequently deteriorating to a level of 3.7 today. Patient is developing oliguria. Was on a bicarbonate drip at time of consultation. Noncontrast CAT scan December 27 showed no evidence of hydronephrosis. Review of Systems ROS Limitations: Clinical Condition Past Family Social History Allergies: Coded Allergies: No Known Allergies (Verified Allergy, Unknown, 12/17/17) Past Medical History Multiple sclerosis. Hypertension Diabetes mellitus. Recently diagnosed adenocarcinoma: Status post right hemicolectomy December 23, 2017. Active Ordered Medications Current Medications Sodium Chloride (NS Flush) 2 ml UNSCH PRN IVF FLUSH AFTER USING IV ACCESS Last administered on 12/17/17 17:35; Start 12/17/17 at 15:30; Stop 12/17/17 at 18:39; Status DC Sodium Chloride 500 ml @ 500 mls/hr BOLUS ONCE IV Last administered on 15:35; Start 12/17/17 at 15:30; Stop 12/17/17 at 16:29; Status DC Pantoprazole Sodium (Protonix Inj) 40 mg ONCE ONCE IV PUSH Last administered on 12/17/17 15:38; Start 12/17/17 at 15:30; Stop 12/17/17 at 15:31; Status DC Insulin Human Regular (NovoLIN R INJ) 6 units ONCE ONCE IV PUSH Last administered on 12/17/17 17:34; Start 12/17/17 at 16:30; Stop 12/17/17 at 16:31; Status DC Dextrose (D50w (Vial) Inj) 50 ml UNSCH PRN IV PUSH HYPOGLYCEMIA-SEE COMMENTS; Start 12/17/17 at 18:30 Glucagon (Glucagon Inj) 1 mg UNSCH PRN OTHER HYPOGLYCEMIA-SEE COMMENTS; Start 12/17/17 at 18:30 Insulin Aspart (NovoLOG SUPPLEMENTAL SCALE) 1 ACHS SLIDING SCALE SQ Last administered on 12/18/17at 08:14; Start 12/17/17 at 21:00; Stop 12/18/17 at 08:47; Status DC Sodium Chloride 1,000 ml @ 75 mls/hr [id number] IV Last administered on at 20:29; Start 12/17/17 at 18:23; Stop 12/27/17 at 04:42; Status DC Sodium Chloride (NS Flush) 2 ml UNSCH PRN IV FLUSH FLUSH AFTER USING IV ACCESS ; Start 12/17/17 at 18:30; Stop 12/27/17 at 04:43; Status DC Sodium Chloride (NS Flush) 2 ml BID IV FLUSH Last administered on 12/26/17at 07: 55; Start 12/17/17 at 21:00; Stop 12/27/17 at 04:43; Status DC Acetaminophen (Tylenol) 650 mg Q4H PRN PO TEMP > 100.4; Start 12/17/17 at 18:30 ; Stop 12/27/17 at 04:58; Status DC Ondansetron HCl (Zofran Inj) 4 mg Q6H PRN IVP NAUSEA OR VOMITING Last administered on 12/27/17at 01:59; Start 12/17/17 at 18:30; Stop 12/27/17 at 04:43 ; Status DC Naloxone HCl (Narcan Inj) 0.4 mg UNSCH PRN IV PUSH SEE LABEL COMMENTS; Start at 18:30 Senna/Docusate Sodium (Lacey-Colace) 1 tab BID PO ; Start 12/17/17 at 21:00; Stop 12/17/17 at 21:00; Status DC Magnesium Hydroxide (Milk Of Magnesia Liq) 30 ml Q12H PRN PO Mild constipation Last administered on 12/26/17at 12:04; Start 12/17/17 at 18:30 Sennosides (Senokot) 17.2 mg Q12H PRN PO Moderate constipation Last administered on 12/25/17at 20:28; Start 12/17/17 at 18:30 Bisacodyl (Dulcolax Supp) 10 mg DAILY PRN RECTAL SEVERE CONSITIPATION; Start at 18:30 Lactulose (Lactulose Liq) 30 ml DAILY PRN PO SEVERE CONSITIPATION Last administered on 12/26/17at 05:18; Start 12/17/17 at 18:30 Pantoprazole Sodium (Protonix Inj) 40 mg Q12H IV PUSH Last administered on 12/28at 08:31; Start 12/17/17 at 20:00 Atorvastatin Calcium (Lipitor) 40 mg HS PO ; Start 12/17/17 at 21:00; Stop at 21:23; Status DC Cholecalciferol (Vitamin D3) 500 units DAILY PO Last administered on 12/28/17at 08:31; Start 12/18/17 at 09:00 Losartan Potassium (Cozaar) 50 mg DAILY PO ; Start 12/18/17 at 09:00; Stop at 09:00; Status DC Oxybutynin Chloride (Ditropan) 5 mg HS PO ; Start 12/17/17 at 21:00; Stop at 21:00; Status DC Oxybutynin Chloride (Ditropan) 10 mg DAILY PO ; Start 12/18/17 at 09:00; Stop 12/18/17 at 09:00; Status DC Propranolol HCl (Inderal) 40 mg Q12HR PO ; Start 12/17/17 at 21:00; Stop 12/17/17 at 21:00; Status DC Ascorbic Acid (Vitamin C) 500 mg HS PO Last administered on 12/27/17at 20:09; Start 12/17/17 at 21:00 Patient Own Medication PT OWN MED:(Dimethyl Fumar... BID PO Last administered on 12/26/17at 08:05; Start 12/17/17 at 21:00 Magnesium Oxide (Mag-Ox) 1,000 mg BID PO ; Start 12/17/17 at 21:00; Stop 12/17/17 at 21:16; Status DC Propranolol HCl (Inderal) 40 mg BID@0600,1200 PO ; Start 12/18/17 at 06:00; Stop 12/18/17 at 06:00; Status DC Patient Own Medication PT OWN MED: OXYBUTY... HS PO Last administered on at 20:29; Start 12/17/17 at 21:00; Stop 12/27/17 at 04:42; Status DC Patient Own Medication PT OWN MED: OXYBUTY... DAILY PO Last administered on at 07:54; Start 12/18/17 at 09:00; Stop 12/27/17 at 04:42; Status DC Patient Own Medication PT OWN MED: PROPRANO... BID@0600,1200 PO Last administered on 12/26/17at 05:18; Start 12/18/17 at 06:00; Stop 12/27/17 at 04:42 ; Status DC Patient Own Medication PT OWN MED: PROPRANO... DAILY@1800 PO Last administered on 12/26/17at 17:49; Start 12/18/17 at 18:00; Stop 12/27/17 at 04:42; Status DC Patient Own Medication PT OWN MED: MAGNES... DAILY PO ; Start 12/18/17 at 09:00; Stop 12/18/17 at 09:00; Status DC Patient Own Medication PT OWN MED: LOSAR... DAILY PO Last administered on at 07:53; Start 12/18/17 at 09:00; Stop 12/27/17 at 04:42; Status DC Patient Own Medication PT OWN MED: MAGNES... DAILY PO Last administered on 12/26at 07:54; Start 12/18/17 at 09:00; Stop 12/27/17 at 04:42; Status DC Patient Own Medication PT OWN MED: ATORVASTATIN 40 MG PO HS HS PO Last administered on 12/25/17at 20:29; Start 12/17/17 at 22:00; Stop 12/27/17 at 04:42 ; Status DC Metformin HCl (Glucophage) 1,000 mg BIDPC PO ; Start 12/18/17 at 09:00; Stop 12/18 at 09:00; Status DC Glipizide (Glucotrol) 2.5 mg DAILY@0800,1700 PO ; Start 12/18/17 at 08:00; Status Future Hold Insulin Detemir (Levemir Inj) 10 units ONCE ONCE SQ Last administered on at 10:12; Start 12/18/17 at 09:00; Stop 12/18/17 at 09:02; Status DC Insulin Aspart (NovoLOG SUPPLEMENTAL SCALE) 1 ACHS SLIDING SCALE SQ Last administered on 12/26/17at 17:48; Start 12/18/17 at 12:00; Stop 12/27/17 at 04:58 ; Status DC Insulin Aspart (NovoLOG INJ) 5 units TIDAC SQ Last administered on 12/26/17at 17 :47; Start 12/18/17 at 12:00; Stop 12/27/17 at 04:58; Status DC Potassium Chloride (KCl) 40 meq ONCE ONCE PO Last administered on 12/18/17at 10: 13; Start 12/18/17 at 10:00; Stop 12/18/17 at 10:01; Status DC Magnesium Citrate (Citroma Liq) 300 ml TID@0400,1200,1800 PO Last administered on 12/19/17at 05:24; Start 12/18/17 at 12:00; Stop 12/19/17 at 04:01; Status DC Iron Sucrose 100 mg/Sodium Chloride 105 ml @ 105 mls/hr ONCE ONCE IV Last administered on 12/18/17at 17:17; Start 12/18/17 at 14:00; Stop 12/18/17 at 14:59; Status DC Albumin Human 3,500 ml @ 250 mls/hr EVERY OTHER DAY IV ; Start 12/19/17 at 09: 00; Stop 12/31/17 at 22:59 Methylprednisolone Sodium Succinate (SoluMEDROL INJ) 125 mg EVERY OTHER DAY IV PUSH Last administered on 12/21/17at 10:50; Start 12/19/17 at 09:00; Stop at 09:01 Famotidine (Pepcid Inj) 20 mg EVERY OTHER DAY IV PUSH Last administered on at 08:14; Start 12/19/17 at 09:00; Stop 12/31/17 at 09:01 Diphenhydramine HCl (Benadryl Inj) 25 mg UNSCH PRN IV PUSH ALLERGIC REACTION; Start 12/18/17 at 15:30; Stop 12/31/17 at 23:59 Calcium Gluconate 1 gm/Sodium Chloride 60 ml @ 60 mls/hr EVERY OTHER DAY IV ; Start 12/19/17 at 09:00; Stop 12/19/17 at 14:11; Status DC Sodium Chloride 1,000 ml @ 0 mls/hr Q0M ONCE IV ; Start 12/19/17 at 09:00; Stop 12/19/17 at 09:01; Status DC Anticoagulant Citrate Dextose Cecily A (Acd Formula Inj) 1,000 ml EVERY OTHER DAY OTHER ; Start 12/19/17 at 09:00; Stop 12/31/17 at 09:01 Heparin Sodium (Porcine) (Heparin Inj) 1,000 units UNSCH PRN IV FLUSH FLUSH AFTER USING IV ACCESS; Start 12/18/17 at 15:30; Stop 12/31/17 at 23:59 Calcium Carbonate (Oscal) 500 mg UNSCH PRN PO PREVENTION OF CITRATE TOXICITY; Start 12/19/17 at 09:00; Stop 12/31/17 at 23:59 Gadodiamide (Omniscan Pf Inj) 20 ml STK-MED ONCE IVCONTRAST Last administered on 12/18/17at 16:08; Start 12/18/17 at 16:08; Stop 12/18/17 at 16:09; Status DC Miscellaneous Information ALL NURSING DEPARTME... UNSCH PRN .XX SEE LABEL COMMENTS; Start 12/19/17 at 12:10; Stop 12/20/17 at 12:09; Status DC Diatrizoate Meglum/ Diatrizoate Sod ( Gastroview Liq) 18 ml ONCE ONCE PO Last administered on 12/19/17at 19:28; Start 12/19/17 at 13:15; Stop 12/19/17 at 13: 16; Status DC Heparin Sodium (Porcine) (*HEPARIN INJ Periprocedural ONLY) 10,000 units STK- MED ONCE .ROUTE Last administered on 12/19/17at 13:55; Start 12/19/17 at 13:55; Stop 12/19/17 at 13:56; Status DC Calcium Gluconate 3.5 gm/Sodium Chloride 235 ml @ 235 mls/hr EVERY OTHER DAY IV ; Start 12/19/17 at 15:00; Stop 12/31/17 at 09:59 Iohexol (Omnipaque 350 Inj) 95 ml STK-MED ONCE IVCONTRAST Last administered on 12/19/17at 21:59; Start 12/19/17 at 21:52; Stop 12/19/17 at 21:53; Status DC Iohexol (Omnipaque 350 Inj) 95 ml STK-MED ONCE IVCONTRAST ; Start 12/19/17 at 21: 57; Stop 12/19/17 at 21:58; Status Cancel Propofol (Diprivan 200 Mg/20 ml Inj) 600 mg STK-MED ONCE IV ; Start 12/19/17 at 12:00; Stop 12/20/17 at 11:09; Status DC Lidocaine HCl (Xylocaine-Mpf 1% Inj) 5 ml STK-MED ONCE OTHER ; Start 12/19/17 at 12:00; Stop 12/20/17 at 11:09; Status DC Iron Sucrose 200 mg/Sodium Chloride 110 ml @ 110 mls/hr DAILY IV Last administered on 12/22/17at 08:31; Start 12/20/17 at 19:30; Stop 12/22/17 at 09:59 ; Status DC Cyanocobalamin (Vitamin B12) 1,000 mcg DAILY PO Last administered on 12/28/17at 08:31; Start 12/22/17 at 09:00 Lactated Ringer's 1,000 ml @ 30 mls/hr Q24H PRN IV SEE LABEL COMMENTS; Start at 01:30; Stop 12/26/17 at 01:29; Status DC Sodium Chloride 500 ml @ 30 mls/hr [id number] PRN IV SEE LABEL COMMENTS; Start at 01:30; Stop 12/26/17 at 01:29; Status DC Povidone Iodine (Betadine 5% Antisepsis Kit) 1 applic NANNY/HOUSEHOLD MANAGER PRN EACH NARE SEE LABEL COMMENTS; Start 12/23/17 at 01:30; Stop 12/26/17 at 01:29; Status DC Chlorhexidine Gluconate (Chlorhexidine 2% Cloth) 3 pack NANNY/HOUSEHOLD MANAGER PRN TOPICAL SEE LABEL COMMENTS; Start 12/23/17 at 01:30; Stop 12/26/17 at 01:29; Status DC Acetaminophen 100 ml @ As Directed STK-MED ONCE IV ; Start 12/23/17 at 10:04; Stop 12/23/17 at 10:05; Status DC Hydromorphone HCl (Dilaudid Pf Inj) 2 mg STK-MED ONCE .ROUTE ; Start 12/23/17 at 10:04; Stop 12/23/17 at 10:05; Status DC Bupivacaine Liposome (Exparel Pf 1.3% Inj) 20 ml STK-MED ONCE .ROUTE ; Start at 11:00; Stop 12/23/17 at 11:01; Status DC Metronidazole 100 ml @ As Directed STK-MED ONCE IV Last administered on at 11:30; Start 12/23/17 at 11:26; Stop 12/23/17 at 11:27; Status DC Cefazolin Sodium/ Dextrose 50 ml @ As Directed STK-MED ONCE .ROUTE Last administered on 12/23/17at 11:30; Start 12/23/17 at 11:26; Stop 12/23/17 at 11:27 ; Status DC Sugammadex Sodium (Bridion Inj) 200 mg STK-MED ONCE IV PUSH ; Start 12/23/17 at 12:12; Stop 12/23/17 at 12:13; Status DC Benzocaine (Hurricaine 20% Oral Spr) 1 spray UNSCH X1 PRN MT SEE LABEL COMMENTS ; Start 12/23/17 at 14:15; Stop 12/26/17 at 14:14; Status DC Cefazolin Sodium 1000 mg/Sodium Chloride 100 ml @ 200 mls/hr Q8H IV Last administered on 12/24/17at 12:07; Start 12/23/17 at 20:00; Stop 12/24/17 at 12:29 ; Status DC Metronidazole 100 ml @ 100 mls/hr Q8H IV Last administered on 12/24/17at 12:07 ; Start 12/23/17 at 20:00; Stop 12/24/17 at 12:59; Status DC Acetaminophen/ Hydrocodone Bitart ([place] 5-325 Mg) 1 tab Q4H PRN PO PAIN SCALE 3 TO 5 Last administered on 12/23/17at 20:17; Start 12/23/17 at 14:15; Stop 12/27/17 at 04:58; Status DC Acetaminophen/ Hydrocodone Bitart ([place] 7.5-325 Mg) 1 tab Q4H PRN PO PAIN SCALE 6 TO 10 Last administered on 12/26/17at 17:49; Start 12/23/17 at 14:15; Stop 12/27/17 at 04:58; Status DC Acetaminophen 100 ml @ 400 mls/hr Q6H IV Last administered on 12/24/17at 08:15 ; Start 12/23/17 at 14:15; Stop 12/24/17 at 08:29; Status DC Morphine Sulfate (Morphine Inj) 4 mg Q3H PRN IV PUSH BREAKTHROUGH PAIN Last administered on 12/24/17at 18:20; Start 12/23/17 at 14:15; Stop 12/24/17 at 18:40 ; Status DC Enoxaparin Sodium (Lovenox Inj) 40 mg Q24H SQ Last administered on 12/26/17at 14 :04; Start 12/24/17 at 14:00; Stop 12/28/17 at 09:16; Status DC Fentanyl Citrate (fentaNYL INJ) 300 mcg STK-MED ONCE .ROUTE ; Start 12/23/17 at 14:37; Stop 12/23/17 at 14:38; Status DC Fentanyl Citrate (fentaNYL INJ) 100 mcg STK-MED ONCE .ROUTE ; Start 12/23/17 at 14:38; Stop 12/23/17 at 14:39; Status DC Midazolam HCl (Versed Inj) 2 mg STK-MED ONCE .ROUTE ; Start 12/23/17 at 14:38; Stop 12/23/17 at 14:39; Status DC Miscellaneous Information ALL NURSING DEPARTME... UNSCH PRN .XX SEE LABEL COMMENTS; Start 12/23/17 at 14:25; Stop 12/24/17 at 14:24; Status DC Insulin Human Regular (NovoLIN R INJ) 4 units NOW ONCE IV PUSH Last administered on 12/23/17at 15:30; Start 12/23/17 at 15:30; Stop 12/23/17 at 15:58 ; Status DC Iron Sucrose 200 mg/Sodium Chloride 110 ml @ 110 mls/hr DAILY IV Last administered on 12/26/17at 07:52; Start 12/25/17 at 09:00; Stop 12/27/17 at 10:00 ; Status DC Morphine Sulfate (Morphine Inj) 2 mg Q3H PRN IV PUSH BREAKTHROUGH PAIN Last administered on 12/25/17at 22:00; Start 12/24/17 at 18:45 Lactated Ringer's 1,000 ml @ As Directed STK-MED ONCE IV ; Start 12/23/17 at 12 :00; Stop 12/26/17 at 13:40; Status DC Lidocaine HCl (Xylocaine-Mpf 1% Inj) 5 ml STK-MED ONCE OTHER ; Start 12/23/17 at 12:00; Stop 12/26/17 at 13:40; Status DC Rocuronium [place] (Zemuron Inj) 100 mg STK-MED ONCE IV PUSH ; Start 12/23/17 at 12:00; Stop 12/26/17 at 13:40; Status DC Neostigmine Methylsulfate (Prostigmine Inj) 5 mg STK-MED ONCE IV PUSH ; Start at 12:00; Stop 12/26/17 at 13:40; Status DC Glycopyrrolate (Robinul Inj) 1 mg STK-MED ONCE IV PUSH ; Start 12/23/17 at 12:00 ; Stop 12/26/17 at 13:40; Status DC Ephedrine Sulfate (ePHEDrine/NS 25 MG/5 ML SYR) 25 mg STK-MED ONCE IV ; Start at 12:00; Stop 12/26/17 at 13:40; Status DC Dexamethasone Sodium Phosphate (Decadron Inj) 4 mg STK-MED ONCE IV ; Start 12/23 at 12:00; Stop 12/26/17 at 13:40; Status DC Ondansetron HCl (Zofran Inj) 4 mg STK-MED ONCE IV ; Start 12/23/17 at 12:00; Stop 12/26/17 at 13:40; Status DC Propofol (Diprivan 200 Mg/20 ml Inj) 200 mg STK-MED ONCE IV ; Start 12/23/17 at 12:00; Stop 12/26/17 at 13:40; Status DC Etomidate (Amidate Inj) 40 mg STK-MED ONCE .ROUTE ; Start 12/27/17 at 03:39; Stop 12/27/17 at 03:40; Status DC Propofol 50 ml @ As Directed STK-MED ONCE .ROUTE ; Start 12/27/17 at 03:41; Stop 12/27/17 at 03:42; Status DC Fentanyl Citrate 250 ml @ 5 mls/hr TITRATE PRN IV Sedation Last administered on 12/28/17at 08:32; Start 12/27/17 at 04:00 Phenylephrine HCl (Neosynephrine Inj) 40 mg STK-MED ONCE .ROUTE ; Start at 03:53; Stop 12/27/17 at 03:54; Status DC Propofol 100 ml @ 2.925 mls/ hr TITRATE PRN IV SEDATION; Start 12/27/17 at 04: 00; Stop 12/28/17 at 16:28; Status DC Norepinephrine Bitartrate 250 ml @ 7.5 mls/hr TITRATE PRN IV Maintain MAP > 65 mmHg Last administered on 12/27/17at 06:45; Start 12/27/17 at 04:00; Stop at 04:33; Status DC Vasopressin (Pitressin Inj) 40 units STK-MED ONCE .ROUTE ; Start 12/27/17 at 04: 06; Stop 12/27/17 at 04:07; Status DC Hydrocortisone Sodium Succinate (SoluCORTEF INJ) 100 mg STK-MED ONCE .ROUTE ; Start 12/27/17 at 04:10; Stop 12/27/17 at 04:11; Status DC Vasopressin 40 units/Dextrose 100 ml @ 1.5 mls/hr TITRATE PRN IV Blood Pressure Management; Start 12/27/17 at 04:30; Stop 12/27/17 at 04:33; Status DC Hydrocortisone Sodium Succinate (SoluCORTEF INJ) 100 mg NOW ONCE IV PUSH ; Start 12/27/17 at 04:30; Stop 12/27/17 at 04:31; Status Cancel Sodium Chloride (NS Flush) DAILY IV FLUSH ; Start 12/27/17 at 09:00 Sodium Chloride (NS Flush) UNSCH PRN IV FLUSH SEE PROTOCOL; Start 12/27/17 at 04:30 Norepinephrine Bitartrate 4 mg/ Sodium Chloride 250 ml @ 7.5 mls/hr TITRATE PRN IV Blood pressure management; Start 12/27/17 at 04:30; Stop 12/27/17 at 09: 46; Status DC Terbutaline Sulfate (Brethine Inj) 1 mg UNSCH PRN SQ For Extravasation; Start 12/27/17 at 04:30 Vasopressin 40 units/Dextrose 100 ml @ 6 mls/hr [id number] IV Last administered on 12/27/17at 04:28; Start 12/27/17 at 04:28; Stop 12/27/17 at 17:49; Status DC Phenylephrine HCl 160 mg/Dextrose 500 ml @ 7.5 mls/hr TITRATE PRN IV Blood pressure management Last administered on 12/27/17at 08:08; Start 12/27/17 at 04: 30; Stop 12/27/17 at 16:57; Status DC Terbutaline Sulfate (Brethine Inj) 1 mg UNSCH PRN SQ For Extravasation; Start 12/27/17 at 04:30 Hydrocortisone Sodium Succinate (SoluCORTEF INJ) 100 mg ONCE ONCE IV PUSH Last administered on 12/27/17at 04:30; Start 12/27/17 at 04:30; Stop 12/27/17 at 04:41; Status DC Hydrocortisone Sodium Succinate (SoluCORTEF INJ) 100 mg Q8H IV PUSH Last administered on 12/28/17at 12:09; Start 12/27/17 at 12:00 Sodium Chloride 1,000 ml @ 84 mls/hr [id number] IV Last administered on at 16:09; Start 12/27/17 at 04:29; Stop 12/27/17 at 17:10; Status DC Sodium Chloride (NS Flush) 2 ml UNSCH PRN IV FLUSH FLUSH AFTER USING IV ACCESS ; Start 12/27/17 at 04:30 Sodium Chloride (NS Flush) 2 ml BID IV FLUSH Last administered on 12/28/17at 08: 10; Start 12/27/17 at 09:00 Pantoprazole Sodium (Protonix Inj) 40 mg DAILY IV PUSH ; Start 12/27/17 at 09:00 ; Stop 12/27/17 at 09:00; Status DC Artificial Tears (Tears Naturale Opth Soln) 1 drop TID EACH EYE Last administered on 12/28/17at 16:39; Start 12/27/17 at 09:00 Ondansetron HCl (Zofran Inj) 4 mg Q6H PRN IV PUSH NAUSEA OR VOMITING; Start at 04:30 Albuterol/ Ipratropium (Duoneb Neb) 1 ampule Q4HR NEB INH Last administered on 12/28/17at 15:23; Start 12/27/17 at 08:00 Albuterol Sulfate (Albuterol Neb) 2.5 mg Q2HR NEB PRN INH SOB/WHEEZING; Start 12/27/17 at 04:30 Miscellaneous Information 1 [id number] XX ; Start 12/27/17 at 04:30 Chlorhexidine Gluconate (Chlorhexidine 2% Cloth) 3 pack Taper DAILY@04 TOP ; Start 12/28/17 at 04:00; Stop 12/24/18 at 03:59 Chlorhexidine Gluconate (Chlorhexidine 2% Cloth) 3 pack UNSCH PRN TOP HYGIENIC CARE; Start 12/27/17 at 04:30 Chlorhexidine Gluconate (Peridex 0.12% Liq) 15 ml BID@08,20 MT Last administered on 12/28/17at 08:09; Start 12/27/17 at 08:00 Piperacillin Sod/ Tazobactam Sod 100 ml @ 200 mls/hr Q6H IV Last administered on 12/28/17at 12:09; Start 12/27/17 at 06:00; Stop 12/28/17 at 15:04; Status DC Pharmacy Profile Note 0 ml @ 0 mls/hr UNSCH OTHER ; Start 12/27/17 at 04:45; Stop 12/28/17 at 16:51; Status DC Vancomycin HCl 1750 mg/Sodium Chloride 517.5 ml @ 250 mls/hr ONCE ONCE IV Last administered on 12/27/17at 08:09; Start 12/27/17 at 07:00; Stop 12/27/17 at 09:04; Status DC Insulin Aspart (NovoLOG SUPPLEMENTAL SCALE) 1 Q4HR SQ Last administered on 12/28at 04:14; Start 12/27/17 at 08:00 Acetaminophen (Tylenol 650 Mg/ 20 ml Liq) 650 mg Q6H PRN PO fever Last administered on 12/27/17at 08:09; Start 12/27/17 at 04:45; Stop 12/27/17 at 10:04 ; Status DC Potassium Chloride 100 ml @ 50 mls/hr Q2H PRN IV For Potassium 2.8 - 3.2 mEq/L ; Start 12/27/17 at 04:45 Potassium Chloride 100 ml @ 50 mls/hr Q2H PRN IV For Potassium 2.8 - 3.2 mEq/L ; Start 12/27/17 at 04:45 Potassium Bicarb/ Potassium Chloride (K-Lyte Cl Eff) 50 meq UNSCH PRN PO For Potassium 3.3 - 3.5 mEq/L; Start 12/27/17 at 04:45 Potassium Chloride 100 ml @ 25 mls/hr UNSCH PRN IV For Potassium 3.3 - 3.5 mEq /L; Start 12/27/17 at 04:45 Potassium Chloride 100 ml @ 50 mls/hr Q2H PRN IV For Potassium 3.3 - 3.5 mEq/L ; Start 12/27/17 at 04:45 Magnesium Sulfate 4 gm/Sodium Chloride 100 ml @ 50 mls/hr UNSCH PRN IV For Magnesium 0.9 - 1.1 mg/dL; Start 12/27/17 at 04:45 Magnesium Oxide (Mag-Ox) 800 mg UNSCH PRN PO For Magnesium 1.2 - 1.6 mg/dL; Start 12/27/17 at 04:45 Magnesium Sulfate 2 gm/Sodium Chloride 100 ml @ 50 mls/hr UNSCH PRN IV For Magnesium 1.2 - 1.6 mg/dL; Start 12/27/17 at 04:45 Potassium Phosphate (K-Phos) 2,000 mg Q4H PRN PO For Phosphorus < 2.5 mg/dL; Start 12/27/17 at 04:45 Sodium Phosphate 30 mmol/Sodium Chloride 250 ml @ 42 mls/hr UNSCH PRN IV For Phosphorus < 2.5 mg/dL; Start 12/27/17 at 04:45 Potassium Phosphate (K-Phos) 2,000 mg UNSCH PRN PO/TUBE SEE LABEL COMMENTS; Start 12/27/17 at 04:45 Potassium Phosphate 30 mmol/ Sodium Chloride 260 ml @ 42 mls/hr UNSCH PRN IV SEE LABEL COMMENTS; Start 12/27/17 at 04:45 Sodium Chloride 1,000 ml @ 999 mls/hr BOLUS ONCE IV Last administered on 12/27at 05:15; Start 12/27/17 at 05:15; Stop 12/27/17 at 06:15; Status DC Norepinephrine Bitartrate 16 mg/ Sodium Chloride 250 ml @ 1.87 mls/hr TITRATE PRN IV Blood pressure management Last administered on 12/28/17at 13:23; Start at 09:45 Acetaminophen 100 ml @ 400 mls/hr Q6H PRN IV fever > 100.4 Last administered on 12/28/17at 04:29; Start 12/27/17 at 10:15 Diatrizoate Meglum/ Diatrizoate Sod (Md Tegan Grant) 18 ml ONCE ONCE PO Last administered on 12/27/17at 18:16; Start 12/27/17 at 11:00; Stop 12/27/17 at 11:01; Status DC Phenylephrine HCl 160 mg/Sodium Chloride 500 ml @ 7.5 mls/hr TITRATE PRN IV Blood pressure management Last administered on 12/28/17at 06:09; Start 12/27/17 at 17:00 Sodium Bicarbonate 150 meq/Sterile Water 1,000 ml @ 100 mls/hr Q10H IV Last administered on 12/28/17at 14:24; Start 12/27/17 at 18:00 Vasopressin 40 units/Sodium Chloride 100 ml @ 6 mls/hr [id number] IV Last administered on 12/28/17at 10:44; Start 12/27/17 at 18:00 Enoxaparin Sodium (Lovenox Inj) 30 mg DAILY SQ Last administered on 12/28/17at 09:21; Start 12/28/17 at 09:00 Piperacillin Sod/ Tazobactam Sod 50 ml @ 100 mls/hr Q6H IV Last administered on 12/28/17at 18:04; Start 12/28/17 at 18:00 Pharmacy Profile Note 0 ml @ 0 mls/hr UNSCH OTHER ; Start 12/28/17 at 16:30 Albumin Human 250 ml @ 250 mls/hr Q6HR IV Last administered on 12/28/17at 16:39 ; Start 12/28/17 at 18:00; Stop 12/30/17 at 09:00 Midazolam HCl 100 ml @ 2 mls/hr TITRATE PRN IV SEDATION Last administered on at 16:40; Start 12/28/17 at 16:30 Miscellaneous Information (RASS Change Order) 1 ea ONCE ONCE XX ; Start at 16:45; Stop 12/28/17 at 16:46; Status DC Sodium Chloride 1,000 ml @ 999 mls/hr BOLUS ONCE IV Last administered on 12/28at 17:00; Start 12/28/17 at 17:00; Stop 12/28/17 at 18:00; Status DC Sodium Chloride 1,000 ml @ 999 mls/hr Q1H1M ONCE IV Last administered on at 18:10; Start 12/28/17 at 18:15; Stop 12/28/17 at 19:15; Status DC Family History Noncontributory to current complaint. Unable to obtain from patient. Social History Apparently no history of illicit drug use. Physical Exam Vital Signs Vital Signs Date Time Temp Pulse Resp B/P (MAP) Pulse Ox O2 Delivery O2 Flow Rate FiO2 12/28/17 16:00 45 12/28/17 16:00 115 12/28/17 15:23 95 55 12/28/17 14:00 102 12/28/17 13:23 102 108/43 12/28/17 12:00 55 12/28/17 12:00 96 12/28/17 12:00 100 55 12/28/17 12:00 100.0 96 19 106/44 (64) 100 12/28/17 10:44 92 111/46 12/28/17 10:00 98 12/28/17 08:00 91 12/28/17 08:00 65 12/28/17 08:00 101.0 88 19 116/54 (74) 100 12/28/17 07:38 97 65 12/28/17 07:00 100 Mechanical Ventilator 65 12/28/17 06:09 89 115/56 12/28/17 04:05 99 65 12/28/17 04:00 100 12/28/17 04:00 101.4 93 18 123/59 (80) 100 12/28/17 00:25 100 70 12/28/17 00:00 100 12/28/17 00:00 100.9 86 18 108/68 (81) 100 12/27/17 23:00 85 12/27/17 20:00 101.6 85 20 101/65 (77) 100 12/27/17 20:00 100 12/27/17 19:28 100 80 12/27/17 19:00 100 Mechanical Ventilator 12/27/17 18:17 84 94/50 12/27/17 18:00 88 12/27/17 17:15 90 100/55 Physical Exam GENERAL: Patient appeared to be significantly older than stated age. ET tube in place. SKIN: Warm and dry. HEAD: Normocephalic. EYES: No scleral icterus. No injection or drainage. NECK: Supple, trachea midline. No JVD or lymphadenopathy. CARDIOVASCULAR: Regular rate and rhythm without murmurs, gallops, or rubs. RESPIRATORY: Breath sounds equal bilaterally. No accessory muscle use. GASTROINTESTINAL: Abdomen soft, non-tender, nondistended. MUSCULOSKELETAL: No cyanosis, or edema. Laboratory Laboratory Tests Test 12/27/17 17:45 12/27/17 19:37 12/28/17 00:25 12/28/17 04:50 White Blood Count 6.9 9.8 Red Blood Count 3.89 3.63 Hemoglobin 8.7 8.0 Hematocrit 27.7 25.5 Mean Corpuscular Volume 71.3 70.0 Mean Corpuscular Hemoglobin 22.4 22.0 Mean Corpuscular Hemoglobin Concent 31.5 31.5 Red Cell Distribution Width 29.2 29.9 Platelet Count 234 190 Mean Platelet Volume 7.2 8.4 Prothrombin Time 11.8 11.8 Prothromb Time International Ratio 1.2 1.2 Activated Partial Thromboplast Time 28.2 28.9 Blood Urea Nitrogen 31 35 Creatinine 3.17 3.70 Random Glucose 285 141 Total Protein 5.0 4.9 Albumin 1.5 1.5 Calcium Level 7.0 6.6 Phosphorus Level 6.6 6.3 Magnesium Level 2.2 2.3 Alkaline Phosphatase 127 109 Aspartate Amino Transf (AST/SGOT) 446 714 Alanine Aminotransferase (ALT/SGPT) 315 602 Total Bilirubin 0.7 0.9 Sodium Level 133 134 Potassium Level 4.2 4.1 Chloride Level 100 98 Carbon Dioxide Level 15.7 20.7 Anion Gap 17 15 Estimat Glomerular Filtration Rate 20 17 Lactic Acid Level 7.0 5.9 5.3 Protein Corrected Calcium 8.1 7.7 Blood Gas Puncture Site ART LINE Blood Gas Patient Temperature 98.6 Blood Gas HCO3 15 Blood Gas Base Excess -9.2 Blood Gas Oxygen Saturation 97 Arterial Blood pH 7.39 Arterial Blood Partial Pressure CO2 25 Arterial Blood Partial Pressure O2 204 Arterial Blood Oxygen Content 11.9 Arterial Blood Carboxyhemoglobin 1.6 Arterial Blood Methemoglobin 0.8 Blood Gas Hemoglobin 8.4 Oxygen Delivery Device VENTILATOR Blood Gas Ventilator Setting SEE COMMENTS Blood Gas Inspired Oxygen 80 Neutrophils (%) (Auto) 87.0 Lymphocytes (%) (Auto) 10.9 Monocytes (%) (Auto) 1.4 Eosinophils (%) (Auto) 0.5 Basophils (%) (Auto) 0.2 Neutrophils # (Auto) 8.5 Lymphocytes # (Auto) 1.1 Monocytes # (Auto) 0.1 Eosinophils # (Auto) 0.1 Basophils # (Auto) 0.0 CBC Comment AUTO DIFF Differential Total Cells Counted 100 Neutrophils % (Manual) 39 Band Neutrophils % 42 Lymphocytes % 14 Monocytes % 1 Neutrophils # (Manual) 8.3 Metamyelocytes 3 Myelocytes 1 Differential Comment FINAL DIFF MANUAL Toxic Granulation 1+ Dohle Bodies PRESENT Platelet Estimate NORMAL Platelet Morphology Comment NORMAL Polychromasia 2.6 Basophilic Stippling FAINT Ovalocytes 1+ Random Vancomycin Level 21.1 Test 12/28/17 16:06 Urine Color YELLOW Urine Turbidity HAZY Urine pH 5.5 Urine Specific [place] 1.022 Urine Protein 100 Urine Glucose (UA) NEG Urine Ketones NEG Urine Occult Blood MOD Urine Nitrite NEG Urine Bilirubin NEG Urine Urobilinogen LESS THAN 2.0 Urine Leukocyte Esterase NEG Urine RBC 3 Urine WBC 1 Urine Squamous Epithelial Cells <1 Urine Amorphous Sediment RARE Urine Bacteria OCC Microscopic Urinalysis Comment CATH-CULTURE IND Date/Time Source Procedure Growth Status 12/27/17 04:48 Blood Peripheral Aerobic Blood Culture - Preliminary Enterococcus Faecalis Resulted 12/27/17 04:48 Anaerobic Blood Culture - Preliminary Gram Positive Cocci Resulted 12/27/17 04:30 Sputum Endotracheal Gram Stain - Final Resulted 12/27/17 04:30 Sputum Culture - Preliminary Gram Negative Selvin Resulted 12/28/17 16:06 Urine Catheterized Urine Urine Culture Pending Received Result Diagram: 12/28/17 0450 12/28/17 0450 Imaging Last 48 hours Impressions Chest X-Ray 12/28/17 0000 Signed Impressions: Service Date/Time: Thursday, December 28, 2017 04:25 - CONCLUSION: Left base consolidation developing. Right base consolidation not significantly changed. Daren Farr MD Chest X-Ray 12/27/17 0000 Signed Impressions: Service Date/Time: Wednesday, December 27, 2017 04:41 - CONCLUSION: 1. Appropriate positions of the newly placed endotracheal tube and nasogastric tube as above. 2. Basilar consolidation, small effusion and volume loss on the right now significantly changed. Daren Farr MD Chest X-Ray 12/27/17 0000 Signed Impressions: Service Date/Time: Wednesday, December 27, 2017 02:57 - CONCLUSION: Right greater than left basilar consolidation worsening. Daren Farr MD Abdomen/Pelvis CT 12/27/17 0000 Signed Impressions: Service Date/Time: Wednesday, December 27, 2017 20:57 - CONCLUSION: 1. Mildly prominent small bowel loops possible ileus. 2. Right hemicolectomy. 3. Small amount of ascites. 4. Bibasilar consolidation likely atelectasis. Shekhar Lewis MD Assessment and Plan Problem List: (1) Acute renal failure (ARF) ICD Codes: N17.9 - Acute kidney failure, unspecified Status: Acute Plan: Patient most likely has established acute tubular necrosis at this point in time. Suspect that his azotemia will continue to progress. Consideration will probably have to be given to renal replacement therapy within the next 24-48 hours. If the patient remains hemodynamically unstable we will consider CRRT. The patient already has a Vas-Cath in place in anticipation of plasmapheresis which is currently on hold because of clinical instability. Patient is critically ill with guarded prognosis. Medications should be adjusted for the patient's estimated GFR if clinically indicated. Avoid agents with significant potential for nephrotoxicity possible including NSAIDs for analgesia, iodine contrast agents. Gadolinium is contraindicated if the GFR is below 30. (2) Oliguria ICD Codes: R34 - Anuria and oliguria Status: Acute Plan: Patient hemodynamically unstable presently. Will not try to utilize diuretic therapy in view of this. (3) Septic shock due to Enterococcus species ICD Codes: A41.81 - Sepsis due to Enterococcus; R65.21 - Severe sepsis with septic shock Status: Acute Plan: Management per critical care and infectious disease. Problem Qualifiers (1) Acute renal failure (ARF): Qualified Codes: N17.0 - Acute kidney failure with tubular necrosis Kris Llanes MD Dec 28, 2017 17:07
[2017-12-28] MEDS ORDERED: PIPERACIL-TAZO 3.375 GM PREMIX 50 ML IV SCH (18:00)
[2017-12-28] MEDS ORDERED: CALCIUM GLUCONATE INJ 2 GM in SODIUM CHLORIDE 0.9% INJ 100 ML IV ONE (21:45)
[2017-12-28] MEDS ORDERED: SODIUM BICARBONATE 8.4% INJ 50 MEQ/50 ML SYR ONE (22:06)
[2017-12-28 22:33] LABS: HEMATOCRIT 24.8 % (39.0-51.0); HEMOGLOBIN 7.3 GM/DL (13.0-17.0); MEAN CELL VOLUME 76.4 FL (80.0-100.0); MEAN CORPUSCULAR HEMOGLOBIN 22.4 PG (27.0-34.0); MEAN PLATELET VOLUME 8.4 FL (7.0-11.0); PLATELET COUNT 111 TH/MM3 (150-450); RED BLOOD COUNT 3.24 MIL/MM3 (4.50-5.90); RED CELL DISTRIBUTION WIDTH 29.1 % (11.6-17.2); WHITE BLOOD COUNT 15.8 TH/MM3 (4.0-11.0)
[2017-12-28 23:14] LABS: MEAN CORPUSCULAR HGB CONC 29.4 % (32.0-36.0)
[2017-12-28] MEDS ORDERED: EPINEPHrine (1:1000) INJ 2 MG in SODIUM CHLOR 0.9% 250 ML INJ 250 ML IV PRN (23:15)
[2017-12-28 23:18] LABS: BANDS 29 % (0-6); CORRECTED NUCLEATED RBC 4 /100 WBC (0-0); LYMPHOCYTES 4 % (9-44); METAMYELOCYTES 3 % (0-1); MONOCYTES 1 % (0-8); NUCLEATED RED BLOOD CELL 4 (0-0); POLYS (SEG NEUTROPHILS) 62 % (16-70); PROMYELOCYTES 1 % (0-0)
[2017-12-28 23:19] LABS: LACTIC ACID SEPSIS PROTOCOL 15.1 mmol/L (0.4-2.0); OVALOCYTES 2+ (NORMAL); TOXIC GRANULATION 3+ (NORMAL)
[2017-12-29] VITALS: BP 72/28; PULSE 102; RESP 16; TEMP 99.3; O2SAT 100
[2017-12-29] MEDS: RESP: ALBUTEROL 2.5 MG/IPRATROPIUM 0.5 MG NEB (SCH) INH
[2017-12-29] MEDS ORDERED: METHYLENE BLUE IV ONE (00:30)
[2017-12-29] MEDS ORDERED: METHYLENE BLUE 100 MG/10 ML VIAL IV PUSH ONE (00:30)
[2017-12-29] MEDS ORDERED: SODIUM CHLORIDE 0.9% IV ONE (00:30)
[2017-12-29] MEDS ORDERED: SODIUM BICARBONATE 8.4% INJ 50 MEQ/50 ML SYR ONE (00:44)
[2017-12-29 01:00] VITALS: BP 92/44; PULSE 112; RESP 16; TEMP 99.3; O2SAT 100
[2017-12-29] MEDS ORDERED: DAPTOmycin INJ 1,000 MG in SODIUM CHLORIDE 0.9% INJ 100 ML IV ONE (01:15)
[2017-12-29] MEDS ORDERED: SODIUM CHLOR 0.9% 250 ML INJ 250 ML IV ONE (01:30)
[2017-12-29] MEDS ORDERED: VASOPRESSIN 20 UNITS/ML VIAL ONE (01:34)
--- NOTE | 2017-12-29 01:37 | HHI.CCPN ---
Subjective Remarks/Hospital Course 12/27: This is a 57-year-old male. Previously DNR status. Date of admission 12/19/2017. Past medical history includes secondary progressive MS mainly ataxia, diabetes notes, dyslipidemia, hyperglycemia, iron deficiency anemia and hypertension. Patient was originally admitted to the [facility] on 12/19 with exacerbation of MS. Patient was originally hospitalized from 12/05-12/07 for MS exacerbation and treated with methylprednisolone succinate patient For exacerbation of MS patient was seen in consultation by neurology who consulted hematology for exchange plasmapheresis. The Vas-Cath has been placed but is currently on hold due to his underlying illness. Hematology still actively following and patient is on iron sucrose Patient was seen by gastroenterology due to anemia. Patient underwent a colonoscopy and EGD on 12/[address] Lopez. 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 Snare polypectomy to the transverse colon which showed hyperplastic polyp. General surgery was consulted. On 12/23 patient underwent a right hemicolectomy with Dr. Monaco On morning of 12/27, patient became more lethargic and acutely short of breath. Chest x-ray revealed worsening infiltrates. Patient was transferred to the ICU where he required emergent intubation. Patient aspirated approximately 1800 cc and was intubated. Currently on multiple vasopressors and critically ill. 12/28: Awake, following commands, orally intubated on mechanical ventilation. Remains on high doses of pressors including Levophed 20 mics per minute, Cliff- Synephrine 300 mics per minute, vasopressin 0.04 U/min. Borderline urine output with rising BUN/creatinine noted. Blood cultures growing Enterococcus faecalis from 12/27 and sputum cultures growing gram-negative rods. 12/29: remains in refractory shock. on phenylephrine, vasopressin, levophed. sbp 60s with map in 40s. I called microbiology lab and will not have any information regarding susceptibilities until tomorrow at the earliest. Vanc trough 21, so unlikely to be subtherapeutic on the vanc. I performed emergent KRISTIE to assess valves (12/14 bottles of enterococcus could be endocarditis as a reason for refractory shock). KRISTIE suggests hyperdynamic and empty LV with evidence of systolic anterior motion of the mitral valve including what appears to be a dynamic outflow tract obstruction with evidence of aliasing and increased flow velocity by color flow doppler through the LVOT. preserved RV function. no pericardial effusion. With this new information, we increased afterload with vasopressin and phenylephrine and elected not to pursue epinephrine and preferentially decrease our norepinephrine dose. Lactate also at this time was 15 (from 5 prior) and abg was 7.0 despite aggressive bicarbonate replacement. I gave 2 units prbc and added methylene blue to assist with refractory vasoplegia. I also covered for the possibility of VRE given the refractory shock, and chose Daptomycin over Linezolid as the combination of Linezolid and methylene blue has the theoretical possibility of causing Serotonin Syndrome. The dialysis catheter that is in situ was placed on 12/19, and although I have a low suspicion for CLABSI in this patient, it cannot be completely ruled out, so a second dialysis catheter was planned to be placed. however, the patient continued to decompensate into PEA arrest. I have had multiple conversations with the family regarding his poor prognosis. At the point that the patient went into PEA arrest, his asked that we not pursue ACLS/CPR and instead make him comfortable and DNR status with comfort measures. Objective Vital Signs Date Time Temp Pulse Resp B/P (MAP) Pulse Ox O2 Delivery O2 Flow Rate FiO2 12/28/17 23:08 97 55 12/28/17 18:00 129 12/28/17 16:00 99.8 18 133/54 (80) 12/28/17 07:00 Mechanical Ventilator 12/27/17 02:14 8.00 Result Diagram: 12/28/17 9843 12/28/17 0450 Other Results Laboratory Tests Test 12/28/17 21:55 12/28/17 23:00 Blood Gas Puncture Site ART LINE ART LINE Blood Gas Patient Temperature 98.6 98.6 Blood Gas HCO3 10 mmol/L (22-26) 9 mmol/L (22-26) Blood Gas Base Excess -17.9 mmol/L (-2-2) -19.1 mmol/L (-2-2) Blood Gas Oxygen Saturation 94 % (90-100) 96 % (90-100) Arterial Blood pH 7.06 (7.380-7.420) 7.04 (7.380-7.420) Arterial Blood Partial Pressure CO2 39 mmHg (38-42) 36 mmHg (38-42) Arterial Blood Partial Pressure O2 114 mmHg (61-120) 153 mmHg (61-120) Arterial Blood Oxygen Content 10.0 Vol % (12.0-20.0) 8.5 Vol % (12.0-20.0) Arterial Blood Carboxyhemoglobin 1.0 % (0-4) 1.1 % (0-4) Arterial Blood Methemoglobin 1.0 % (0-2) 0.9 % (0-2) Blood Gas Hemoglobin 7.4 G/DL (12.0-16.0) 6.0 G/DL (12.0-16.0) Oxygen Delivery Device VENTILATOR VENTILATOR Blood Gas Ventilator Setting 16/500/IT1.1/8PEEP Blood Gas Inspired Oxygen 45 % 55 % Imaging CT Abd/Pelvis 12/28: Ileus, bibasilar consolidation, small ascites Last 24 hours Impressions Chest X-Ray 12/28/17 0000 Signed Impressions: Service Date/Time: Thursday, December 28, 2017 04:25 - CONCLUSION: Left base consolidation developing. Right base consolidation not significantly changed. Daren Farr MD Last Impressions Chest X-Ray 12/27/17 0000 Signed Impressions: Service Date/Time: Wednesday, December 27, 2017 02:57 - CONCLUSION: Right greater than left basilar consolidation worsening. Daren Farr MD Abdomen X-Ray 12/26/17 0000 Signed Impressions: Service Date/Time: Tuesday, December 26, 2017 14:50 - CONCLUSION: 1. Findings consistent with moderate adynamic ileus versus developing partial small bowel obstruction. Natanael Pino MD Catheter Placement X-Ray 12/19/17 1302 Signed Impressions: Service Date/Time: Tuesday, December 19, 2017 13:50 - CONCLUSION: Uncomplicated line placement as above. Natanael Pino MD Abdomen/Pelvis CT 12/19/17 0000 Signed Impressions: Service Date/Time: Tuesday, December 19, 2017 21:45 - CONCLUSION: 1. No acute findings on abdomen and pelvic CT. The bladder is mildly this ended with mild bladder wall thickening. Fatty liver. Small hiatal hernia. Gilbert Turcios MD Thoracic Spine MRI 12/18/17 0950 Signed Impressions: Service Date/Time: Monday, December 18, 2017 15:16 - CONCLUSION: 1. The thoracic cord has normal signal and morphology throughout. 2. Mild, nonacute appearing superior endplate compression fractures of T3, T12 and L1. 3. No foraminal or spinal stenosis. 4. T9 vertebral body hemangioma. Daren Farr MD Cervical Spine MRI 12/18/17 0950 Signed Impressions: Service Date/Time: Monday, December 18, 2017 15:16 - CONCLUSION: 1. Faint, chronic appearing T2 signal abnormality throughout most of the central cervical cord. No abnormal enhancement or other evidence of an active/acute lesion. 2. Mild degenerative changes as above. There is no foraminal or spinal stenosis. Daren Farr MD Brain MRI 12/18/17 0950 Signed Impressions: Service Date/Time: Monday, December 18, 2017 15:16 - CONCLUSION: Moderate signal abnormality in the periventricular white matter with involvement of the corpus callosum in a pattern characteristic of multiple sclerosis. No recent infarct. No abnormal enhancement. Gilbert Turcios MD Procedures s/p endoscopic resection on 12/23/17 Objective Remarks GENERAL: 57-year-old male critically ill currently orotracheally intubated, in extremis and refractory shock. SKIN: cool, poorly perfused. HEAD: Atraumatic. Normocephalic. EYES: Pupils equal and round about 2 mm bilaterally and reactive. No scleral icterus. No injection or drainage. ENT: No nasal bleeding or discharge. Mucous membranes pink and moist. NECK: Trachea midline. No JVD. Right IJ hemodialysis catheter is clean dry and intact CARDIOVASCULAR: Tachycardic, RR. sinus. RESPIRATORY: Orally intubated on mechanical ventilation, good air entry bilaterally, scattered rhonchi, no wheezing or crackles. GASTROINTESTINAL: Abdomen soft, nontender. no guarding. Dressing midline is clean dry and intact.. MUSCULOSKELETAL: Extremities trace lower extremity edema edema. No obvious deformities. NEUROLOGICAL: RASS -4. does not follow commands. sedated. intubated. A/P Assessment and Plan Assessment: 57yM with refractory enterococcus bacteremia and profound septic shock. very critically ill. Neuro/Psych: Acute encephalopathy/toxic metabolic Secondary progressive MS mainly ataxia Versed/fentanyl for sedation/analgesia as needed with daily sedation vacation. Goal of RASS of -2 Evaluated by neurology/Dr. Abraham. Previously on dimethyl fumarate 240 mg twice daily Was to receive plasmapheresis but is currently on hold. His steroid appear to be on hold as well. MRI brain 12/18 this admission revealed changes in the periventricular white matter on the corpus callosum indicative of multiple sclerosis EEG revealed some frontal alpha sharps otherwise negative Acetaminophen 600 mg 2 every 6 hours as needed fever CV: Septic shock- refractory, worsening. History of hypertension History of dyslipidemia Currently on titrating dosages of norepinephrine, phenylephrine and vasopressin to maintain mean arterial pressure greater than equal to 65 Remains on IV fluids. IV albumin every 6 hourly 8 doses ordered on 12/28. Holding antihypertensive medications of propranolol and losartan while on vasopressors Holding atorvastatin 40 mg by tube daily for dyslipidemia. Serial lactates. Resp: Acute hypoxemic respiratory failure secondary to aspiration PCV-VG 500/16/50%/PEEP+8 Ventilator bundle Albuterol/ipratropium aerosols every 6 hours with albuterol aerosols every 2 hours as needed dyspnea Follow postintubation chest x-ray and ABG Chest x-ray prior to intubation revealed bilateral lower lobe infiltrates GI: Postop day #6 right hemicolectomy secondary to adenocarcinoma of the cecum Grade D esophagitis History of duodenal ulcer Hyperplastic polyps OGT to LIWS Pantoprazole 40 mg IV twice daily CT abdomen pelvis with no evidence of leak. : Overflow incontinence Perez catheter placement Holding oxybutynin 10 mg a.m. 5 mg at bedtime Endo: Diabetes mellitus Holding metformin thousand milligrams twice daily and glipizide 25 mg twice daily Sliding scale insulin with NovoLog/medium protocol with Accu-Cheks every 6 hours to maintain euglycemia Renal: Strict intake output, monitor and replete electrolytes, follow BN creatinine. Worsening BUN/creatinine noted. Nephrology consulted as patient may require renal replacement therapy. Continue bicarb drip. Check UA, urine sodium and creatinine. Heme: History of iron deficiency anemia Status post iron sucrose 200 mg IV from 12/25-12/27 ID: Day #3 piperacillin/tazobactam and vancomycin, vancomycin pharmacy consult ordered. Blood cultures growing Enterococcus faecalis from 12/27. Sputum cultures with gram-negative rods from 12/27. ID consult requested for septic shock with enterococcus bacteremia, aspiration pneumonia Repeat blood cultures on 12/29. FEN: Replace electrolytes as clinically indicated per ICU electrolyte protocol MSK: PT evaluate and treat Access -Left femoral central line placed 12/27. Left femoral A-line placed 12/27 Prophylaxis -GI -pantoprazole -DVT -SCD/enoxaparin Condition remains critical with septic shock, multiorgan failure with high pressor requirement with worsening renal failure. Discussed with patient's at bedside and updated regarding current clinical status and plan of care and she voiced understanding and was agreeable. Critical Care: The total critical care time was 106 minutes. Time to perform other separately billable procedures was not included in the critical care time. Yannick Mcgee MD Dec 29, 2017 01:37
--- NOTE | 2017-12-29 01:45 | PD.PROCEDR ---
Procedure Note Procedure Procedure: Transesophageal Echocardiography Diagnosis: Refractory septic shock Indications: Need to differentiate undifferentiated shock as well as rule out infective endocarditis Consent: Emergent Anesthesia: Versed and fentanyl IV Description of the Procedure: The patient was sedated and mechanically ventilated. The echo probe was inserted easily and without resistance. At the conclusion of the procedure, the echo probe was removed. Please see detailed echocardiogram report for formal findings. Preliminary Findings (not confirmed): 1. hyperdynamic LV with grossly underfilled LV cavity 2. evidence of systolic anterior motion of the mitral valve 3. evidence of dynamic LVOT obstruction by color flow Doppler 4. grossly preserved RV function 5. no pericardial effusion The patient remained in refractory shock. There were no immediate complications noted. There was minimal EBL. I personally performed the procedure. Yannick Mcgee MD Dec 29, 2017 01:45
--- NOTE | 2017-12-29 03:31 | DEATH SUM ---
Pronouncement Date Pronounced : Dec 29, 2017 Time Of : 01:48 Pronouncement Called to pronounce of patient. Identified patient as Chris Wilkes with wrist band MR# [id number]. Patient with no cardiac activity in 2 separate leads and no palpable/auscible cardiac activity. Patient with no spontaneous respirations, no corneal reflex or response to painful stimuli. Pupils fixed and dilated. Preliminary Cause of : Cardiac arrest Yannick Mcgee MD Dec 29, 2017 03:30
--- NOTE | 2017-12-29 03:32 | HHI.DS ---
Summary Note Date of : Dec 29, 2017 Time Of : 01:48 Admission Date Dec 17, 2017 at 17:42 Admitting Diagnosis Hyperglycemia/GI bleed/symptomatic anemia Diagnosis at Time of : (1) Hypokalemia ICD Code: E87.6 - Hypokalemia (2) GI bleed ICD Code: K92.2 - Gastrointestinal hemorrhage, unspecified (3) DM (diabetes mellitus) ICD Code: E11.9 - Type 2 diabetes mellitus without complications (4) Anemia ICD Code: D64.9 - Anemia, unspecified (5) Hyperlipidemia ICD Code: E78.5 - Hyperlipidemia, unspecified (6) Hypertension ICD Code: I10 - Essential (primary) hypertension (7) Multiple sclerosis exacerbation ICD Code: G35 - Multiple sclerosis (8) Impaired mobility and activities of daily living ICD Code: Z74.09 - Other reduced mobility (9) Colonic mass ICD Code: K63.9 - Disease of intestine, unspecified Procedures s/p endoscopic resection on 12/23/17 Brief History 57 year old male with primary progressive multiple sclerosis presenting with increasing weakness, confusion, and inability to care for himself. He is accompanied by his who provides most of the history. He was hospitalized from 12/05-12/07 for MS exacerbation and treated with IV Solumedrol and sent home on a tapering course of prednisone that he is still taking. His is very concerned because before he was able to at least help transfer himself (i.e. to and from his wheelchair) but now he is completely dependent and she has been having an increasingly difficult time taking care of him. Currently he is getting three hours a day of [facility] which is all they can afford. She describes him as " weight." He was having lower extremity weakness prior to his last hospitalization and states he had mild improvement on the steroids but feels that it is worsening once more. He also endorses bilateral leg pain. Prior to the last hospitalization he was taking Aleve regularly; he was found to have a hemoglobin around 7 and was transfused a unit but had negative Hemoccult. He was told to discontinue the Aleve. He has been on Zantac while on the tapering prednisone but today he had a large, black, liquid bowel movement. He had no associated nausea, vomiting, fever, chills, chest pain, or abdominal pain. He has never had a colonoscopy. CBC/BMP: 12/28/17 4085 12/28/17 4978 Significant Findings Laboratory Tests Test 12/27/17 02:16 12/27/17 04:34 12/27/17 05:00 12/27/17 06:40 Arterial Blood pH 7.48 (7.380-7.420) 7.46 (7.380-7.420) Arterial Blood Partial Pressure CO2 30 mmHg (38-42) 21 mmHg (38-42) Blood Gas Hemoglobin 10.9 G/DL (12.0-16.0) 9.7 G/DL (12.0-16.0) Red Blood Count 4.35 MIL/MM3 (4.50-5.90) Hemoglobin 9.6 GM/DL (13.0-17.0) Hematocrit 31.1 % (39.0-51.0) Mean Corpuscular Volume 71.6 FL (80.0-100.0) Mean Corpuscular Hemoglobin 22.1 PG (27.0-34.0) Mean Corpuscular Hemoglobin Concent 30.9 % (32.0-36.0) Red Cell Distribution Width 29.5 % (11.6-17.2) Neutrophils (%) (Auto) 81.7 % (16.0-70.0) Lymphocytes # (Auto) 0.7 TH/MM3 (1.0-4.8) Band Neutrophils % 55 % (0-6) Metamyelocytes 4 % (0-1) Nucleated Red Blood Cells 1 /100 WBC (0-0) Toxic Granulation 1+ (NORMAL) Dohle Bodies PRESENT (NONE SEEN) Polychromasia 2.2 % (0.0-1.9) Ovalocytes 1+ (NORMAL) Blood Urea Nitrogen 26 MG/DL (7-18) Creatinine 2.03 MG/DL (0.60-1.30) Random Glucose 230 MG/DL (74-106) Total Protein 5.2 GM/DL (6.4-8.2) Albumin 1.8 GM/DL (3.4-5.0) Calcium Level 7.7 MG/DL (8.5-10.1) Sodium Level 132 MEQ/L (136-145) Chloride Level 94 MEQ/L (98-107) Carbon Dioxide Level 20.8 MEQ/L (21.0-32.0) Anion Gap 17 MEQ/L (5-15) Estimat Glomerular Filtration Rate 34 ML/MIN (>89) Lactic Acid Level 3.6 mmol/L (0.4-2.0) Troponin I LESS THAN 0.02 NG/ML Blood Gas HCO3 15 mmol/L (22-26) Blood Gas Base Excess -8.4 mmol/L (-2-2) Blood Gas Oxygen Saturation 88 % (90-100) Arterial Blood Partial Pressure O2 59 mmHg (61-120) Urine Turbidity HAZY (CLEAR) Urine Protein 30 mg/dL (NEG-TRACE) Urine Ketones 40 mg/dL (NEG) Urine Occult Blood SMALL (NEG) Urine Leukocyte Esterase MOD (NEG) Urine RBC 13 /hpf (0-3) Urine WBC 20 /hpf (0-5) Urine Bacteria RARE /hpf (NONE) Urine Mucus MANY /lpf (OCC) Test 12/27/17 06:50 12/27/17 07:18 12/27/17 10:55 12/27/17 17:45 Blood Gas HCO3 17 mmol/L (22-26) Blood Gas Base Excess -6.2 mmol/L (-2-2) Arterial Blood pH 7.44 (7.380-7.420) Arterial Blood Partial Pressure CO2 26 mmHg (38-42) Arterial Blood Oxygen Content 11.9 Vol % (12.0-20.0) Blood Gas Hemoglobin 9.3 G/DL (12.0-16.0) Lactic Acid Level 5.3 mmol/L (0.4-2.0) 7.0 mmol/L (0.4-2.0) Amylase Level 519 U/L (25-115) Red Blood Count 3.89 MIL/MM3 (4.50-5.90) Hemoglobin 8.7 GM/DL (13.0-17.0) Hematocrit 27.7 % (39.0-51.0) Mean Corpuscular Volume 71.3 FL (80.0-100.0) Mean Corpuscular Hemoglobin 22.4 PG (27.0-34.0) Mean Corpuscular Hemoglobin Concent 31.5 % (32.0-36.0) Red Cell Distribution Width 29.2 % (11.6-17.2) Prothrombin Time 11.8 SEC (9.8-11.6) Blood Urea Nitrogen 31 MG/DL (7-18) Creatinine 3.17 MG/DL (0.60-1.30) Random Glucose 285 MG/DL (74-106) Total Protein 5.0 GM/DL (6.4-8.2) Albumin 1.5 GM/DL (3.4-5.0) Calcium Level 7.0 MG/DL (8.5-10.1) Phosphorus Level 6.6 MG/DL (2.5-4.9) Alkaline Phosphatase 127 U/L (45-117) Aspartate Amino Transf (AST/SGOT) 446 U/L (15-37) Alanine Aminotransferase (ALT/SGPT) 315 U/L (12-78) Sodium Level 133 MEQ/L (136-145) Carbon Dioxide Level 15.7 MEQ/L (21.0-32.0) Anion Gap 17 MEQ/L (5-15) Estimat Glomerular Filtration Rate 20 ML/MIN (>89) Protein Corrected Calcium 8.1 MG/DL (8.5-10.1) Test 12/27/17 19:37 12/28/17 00:25 12/28/17 04:50 12/28/17 16:06 Blood Gas HCO3 15 mmol/L (22-26) Blood Gas Base Excess -9.2 mmol/L (-2-2) Arterial Blood Partial Pressure CO2 25 mmHg (38-42) Arterial Blood Partial Pressure O2 204 mmHg (61-120) Arterial Blood Oxygen Content 11.9 Vol % (12.0-20.0) Blood Gas Hemoglobin 8.4 G/DL (12.0-16.0) Lactic Acid Level 5.9 mmol/L (0.4-2.0) 5.3 mmol/L (0.4-2.0) Red Blood Count 3.63 MIL/MM3 (4.50-5.90) Hemoglobin 8.0 GM/DL (13.0-17.0) Hematocrit 25.5 % (39.0-51.0) Mean Corpuscular Volume 70.0 FL (80.0-100.0) Mean Corpuscular Hemoglobin 22.0 PG (27.0-34.0) Mean Corpuscular Hemoglobin Concent 31.5 % (32.0-36.0) Red Cell Distribution Width 29.9 % (11.6-17.2) Neutrophils (%) (Auto) 87.0 % (16.0-70.0) Neutrophils # (Auto) 8.5 TH/MM3 (1.8-7.7) Band Neutrophils % 42 % (0-6) Neutrophils # (Manual) 8.3 TH/MM3 (1.8-7.7) Metamyelocytes 3 % (0-1) Myelocytes 1 % (0-0) Toxic Granulation 1+ (NORMAL) Dohle Bodies PRESENT (NONE SEEN) Polychromasia 2.6 % (0.0-1.9) Basophilic Stippling FAINT (NORMAL) Ovalocytes 1+ (NORMAL) Prothrombin Time 11.8 SEC (9.8-11.6) Blood Urea Nitrogen 35 MG/DL (7-18) Creatinine 3.70 MG/DL (0.60-1.30) Random Glucose 141 MG/DL (74-106) Total Protein 4.9 GM/DL (6.4-8.2) Albumin 1.5 GM/DL (3.4-5.0) Calcium Level 6.6 MG/DL (8.5-10.1) Phosphorus Level 6.3 MG/DL (2.5-4.9) Aspartate Amino Transf (AST/SGOT) 714 U/L (15-37) Alanine Aminotransferase (ALT/SGPT) 602 U/L (12-78) Sodium Level 134 MEQ/L (136-145) Carbon Dioxide Level 20.7 MEQ/L (21.0-32.0) Estimat Glomerular Filtration Rate 17 ML/MIN (>89) Protein Corrected Calcium 7.7 MG/DL (8.5-10.1) Urine Turbidity HAZY (CLEAR) Urine Protein 100 mg/dL (NEG-TRACE) Urine Occult Blood MOD (NEG) Urine Bacteria OCC /hpf (NONE) Test 12/28/17 21:55 12/28/17 23:00 White Blood Count 15.8 TH/MM3 (4.0-11.0) Red Blood Count 3.24 MIL/MM3 (4.50-5.90) Hemoglobin 7.3 GM/DL (13.0-17.0) Hematocrit 24.8 % (39.0-51.0) Mean Corpuscular Volume 76.4 FL (80.0-100.0) Mean Corpuscular Hemoglobin 22.4 PG (27.0-34.0) Mean Corpuscular Hemoglobin Concent 29.4 % (32.0-36.0) Red Cell Distribution Width 29.1 % (11.6-17.2) Platelet Count 111 TH/MM3 (150-450) Band Neutrophils % 29 % (0-6) Lymphocytes % 4 % (9-44) Neutrophils # (Manual) 15.0 TH/MM3 (1.8-7.7) Metamyelocytes 3 % (0-1) Promyelocytes 1 % (0-0) Nucleated Red Blood Cells 4 /100 WBC (0-0) Toxic Granulation 3+ (NORMAL) Platelet Estimate LOW (NORMAL) Ovalocytes 2+ (NORMAL) Blood Gas HCO3 10 mmol/L (22-26) 9 mmol/L (22-26) Blood Gas Base Excess -17.9 mmol/L (-2-2) -19.1 mmol/L (-2-2) Arterial Blood pH 7.06 (7.380-7.420) 7.04 (7.380-7.420) Arterial Blood Oxygen Content 10.0 Vol % (12.0-20.0) 8.5 Vol % (12.0-20.0) Blood Gas Hemoglobin 7.4 G/DL (12.0-16.0) 6.0 G/DL (12.0-16.0) Lactic Acid Level 15.1 mmol/L (0.4-2.0) Arterial Blood Partial Pressure CO2 36 mmHg (38-42) Arterial Blood Partial Pressure O2 153 mmHg (61-120) Imaging CT Abd/Pelvis 12/28: Ileus, bibasilar consolidation, small ascites Last 24 hours Impressions Chest X-Ray 12/28/17 0000 Signed Impressions: Service Date/Time: Thursday, December 28, 2017 04:25 - CONCLUSION: Left base consolidation developing. Right base consolidation not significantly changed. Daren Farr MD Last Impressions Chest X-Ray 12/27/17 0000 Signed Impressions: Service Date/Time: Wednesday, December 27, 2017 02:57 - CONCLUSION: Right greater than left basilar consolidation worsening. Daren Farr MD Abdomen X-Ray 12/26/17 0000 Signed Impressions: Service Date/Time: Tuesday, December 26, 2017 14:50 - CONCLUSION: 1. Findings consistent with moderate adynamic ileus versus developing partial small bowel obstruction. Natanael Pino MD Catheter Placement X-Ray 12/19/17 1302 Signed Impressions: Service Date/Time: Tuesday, December 19, 2017 13:50 - CONCLUSION: Uncomplicated line placement as above. Natanael Pino MD Abdomen/Pelvis CT 12/19/17 0000 Signed Impressions: Service Date/Time: Tuesday, December 19, 2017 21:45 - CONCLUSION: 1. No acute findings on abdomen and pelvic CT. The bladder is mildly this ended with mild bladder wall thickening. Fatty liver. Small hiatal hernia. Gilbert Turcios MD Thoracic Spine MRI 12/18/17 0950 Signed Impressions: Service Date/Time: Monday, December 18, 2017 15:16 - CONCLUSION: 1. The thoracic cord has normal signal and morphology throughout. 2. Mild, nonacute appearing superior endplate compression fractures of T3, T12 and L1. 3. No foraminal or spinal stenosis. 4. T9 vertebral body hemangioma. Daren Farr MD Cervical Spine MRI 12/18/17 0950 Signed Impressions: Service Date/Time: Monday, December 18, 2017 15:16 - CONCLUSION: 1. Faint, chronic appearing T2 signal abnormality throughout most of the central cervical cord. No abnormal enhancement or other evidence of an active/acute lesion. 2. Mild degenerative changes as above. There is no foraminal or spinal stenosis. Daren Farr MD Brain MRI 12/18/17 0950 Signed Impressions: Service Date/Time: Monday, December 18, 2017 15:16 - CONCLUSION: Moderate signal abnormality in the periventricular white matter with involvement of the corpus callosum in a pattern characteristic of multiple sclerosis. No recent infarct. No abnormal enhancement. Gilbert Turcios MD Hospital Course 12/27: This is a 57-year-old male. Previously DNR status. Date of admission 12/19/2017. Past medical history includes secondary progressive MS mainly ataxia, diabetes notes, dyslipidemia, hyperglycemia, iron deficiency anemia and hypertension. Patient was originally admitted to the [facility] on 12/19 with exacerbation of MS. Patient was originally hospitalized from 12/05-12/07 for MS exacerbation and treated with methylprednisolone succinate patient For exacerbation of MS patient was seen in consultation by neurology who consulted hematology for exchange plasmapheresis. The Vas-Cath has been placed but is currently on hold due to his underlying illness. Hematology still actively following and patient is on iron sucrose Patient was seen by gastroenterology due to anemia. Patient underwent a colonoscopy and EGD on 12/[address] Lopez. 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 Snare polypectomy to the transverse colon which showed hyperplastic polyp. General surgery was consulted. On 12/23 patient underwent a right hemicolectomy with Dr. Monaco On morning of 12/27, patient became more lethargic and acutely short of breath. Chest x-ray revealed worsening infiltrates. Patient was transferred to the ICU where he required emergent intubation. Patient aspirated approximately 1800 cc and was intubated. Currently on multiple vasopressors and critically ill. 12/28: Awake, following commands, orally intubated on mechanical ventilation. Remains on high doses of pressors including Levophed 20 mics per minute, Cliff- Synephrine 300 mics per minute, vasopressin 0.04 U/min. Borderline urine output with rising BUN/creatinine noted. Blood cultures growing Enterococcus faecalis from 12/27 and sputum cultures growing gram-negative rods. 12/29: remains in refractory shock. on phenylephrine, vasopressin, levophed. sbp 60s with map in 40s. I called microbiology lab and will not have any information regarding susceptibilities until tomorrow at the earliest. Vanc trough 21, so unlikely to be subtherapeutic on the vanc. I performed emergent KRISTIE to assess valves (/ bottles of enterococcus could be endocarditis as a reason for refractory shock). KRISTIE suggests hyperdynamic and empty LV with evidence of systolic anterior motion of the mitral valve including what appears to be a dynamic outflow tract obstruction with evidence of aliasing and increased flow velocity by color flow doppler through the LVOT. preserved RV function. no pericardial effusion. With this new information, we increased afterload with vasopressin and phenylephrine and elected not to pursue epinephrine and preferentially decrease our norepinephrine dose. Lactate also at this time was 15 (from 5 prior) and abg was 7.0 despite aggressive bicarbonate replacement. I gave 2 units prbc and added methylene blue to assist with refractory vasoplegia. I also covered for the possibility of VRE given the refractory shock, and chose Daptomycin over Linezolid as the combination of Linezolid and methylene blue has the theoretical possibility of causing Serotonin Syndrome. The dialysis catheter that is in situ was placed on 12/19, and although I have a low suspicion for CLABSI in this patient, it cannot be completely ruled out, so a second dialysis catheter was planned to be placed. however, the patient continued to decompensate into PEA arrest. I have had multiple conversations with the family regarding his poor prognosis. At the point that the patient went into PEA arrest, his asked that we not pursue ACLS/CPR and instead make him comfortable and DNR status with comfort measures. Despite our best efforts at resuscitation, the patient with his family at bedside at 1:48am. Yannick Mcgee MD Dec 29, 2017 03:32
[2017-12-29 03:59] LABS: CREATININE, RANDOM URINE 84.7 MG/DL
== END 2017-12-29 01:48 | disposition expired | DRG 329 ==
LOC: NEPC 14:27 → OBSVTOIN 17:42 → INTOOBSV 17:42 → NEDA 17:42 → N06A 19:49 → N03B 12-27 03:29
PROVIDERS: ADMIT Internal Medicine Critical Care Medicine; ATTEND Internal Medicine Critical Care Medicine
PROC: 0DB68ZX Excision of Stomach, Via Natural or Artificial Opening Endoscopic, Diagnostic (ICD-10-PCS; 2017-12-19)
PROC: 0DB38ZX Excision of Lower Esophagus, Via Natural or Artificial Opening Endoscopic, Diagnostic (ICD-10-PCS; 2017-12-19)
PROC: 0DBL8ZX Excision of Transverse Colon, Via Natural or Artificial Opening Endoscopic, Diagnostic (ICD-10-PCS; 2017-12-19)
PROC: 0DBK8ZX Excision of Ascending Colon, Via Natural or Artificial Opening Endoscopic, Diagnostic (ICD-10-PCS; 2017-12-19)
PROC: 0DBH8ZX Excision of Cecum, Via Natural or Artificial Opening Endoscopic, Diagnostic (ICD-10-PCS; 2017-12-19)
PROC: 07BC0ZX Excision of Pelvis Lymphatic, Open Approach, Diagnostic (ICD-10-PCS; 2017-12-23)
PROC: 0DTF0ZZ Resection of Right Large Intestine, Open Approach (ICD-10-PCS; principal; 2017-12-23 10:39)
PROC: 5A1945Z Respiratory Ventilation, 24-96 Consecutive Hours (ICD-10-PCS; 2017-12-27)
PROC: 0BH17EZ Insertion of Endotracheal Airway into Trachea, Via Natural or Artificial Opening (ICD-10-PCS; 2017-12-27)
PROC: 06HN33Z Insertion of Infusion Device into Left Femoral Vein, Percutaneous Approach (ICD-10-PCS; 2017-12-27)
PROC: 04HY32Z Insertion of Monitoring Device into Lower Artery, Percutaneous Approach (ICD-10-PCS; 2017-12-27)
PROC: 4A133B1 Monitoring of Arterial Pressure, Peripheral, Percutaneous Approach (ICD-10-PCS; 2017-12-27)
PROC: 4A133J1 Monitoring of Arterial Pulse, Peripheral, Percutaneous Approach (ICD-10-PCS; 2017-12-27)
PROC: 30233N1 Transfusion of Nonautologous Red Blood Cells into Peripheral Vein, Percutaneous Approach (ICD-10-PCS; 2017-12-28)
PROC: B246ZZ4 Ultrasonography of Right and Left Heart, Transesophageal (ICD-10-PCS; 2017-12-29)
DX: C18.0 Malignant neoplasm of cecum (principal); C77.5 Secondary and unspecified malignant neoplasm of intrapelvic lymph nodes; J96.01 Acute respiratory failure with hypoxia; A41.81 Sepsis due to Enterococcus; R65.21 Severe sepsis with septic shock; N17.0 Acute kidney failure with tubular necrosis; J18.9 Pneumonia, unspecified organism; G93.41 Metabolic encephalopathy; C18.2 Malignant neoplasm of ascending colon; K92.1 Melena; K92.2 Gastrointestinal hemorrhage, unspecified; K22.10 Ulcer of esophagus without bleeding; K26.9 Duodenal ulcer, unspecified as acute or chronic, without hemorrhage or perforation; G35 Multiple sclerosis; I10 Essential (primary) hypertension; E11.65 Type 2 diabetes mellitus with hyperglycemia; D50.9 Iron deficiency anemia, unspecified; Z87.11 Personal history of peptic ulcer disease; Z82.49 Family history of ischemic heart disease and other diseases of the circulatory system; Z82.3 Family history of stroke; Z79.84 Long term (current) use of oral hypoglycemic drugs; E78.5 Hyperlipidemia, unspecified; R27.0 Ataxia, unspecified; Z99.3 Dependence on wheelchair; Z66 Do not resuscitate; K44.9 Diaphragmatic hernia without obstruction or gangrene; K64.8 Other hemorrhoids; D12.3 Benign neoplasm of transverse colon; K29.50 Unspecified chronic gastritis without bleeding; I46.9 Cardiac arrest, cause unspecified; N39.490 Overflow incontinence; T17.918A Gastric contents in respiratory tract, part unspecified causing other injury, initial encounter; X58.XXXA Exposure to other specified factors, initial encounter; Y93.89 Activity, other specified; Y92.239 Unspecified place in hospital as the place of occurrence of the external cause; Y99.9 Unspecified external cause status
CPT/HCPCS: 31500; 36430; 36556; 36600; 70553; 71045; 72156; 72157; 74018; 74176; 74177; 76937; 77001; 80048; 80053; 80202; 81001; 82010; 82150; 82378; 82550; 82570; 82607; 82728; 82747; 82805; 82948; 83036; 83540; 83550; 83605; 83690; 83735; 84100; 84300; 84484; 85007; 85014; 85018; 85025; 85027; 85384; 85610; 85730; 86850; 86900; 86901; 86920; 87040; 87070; 87077; 87086; 87186; 87205; 87641; 88305; 88309; 88312; 93005; 94002; 94003; 94640; 94664; 96361; 96374; 96375; A9579; C1752; C9113; C9290; J0131; J0690; J1100; J1170; J1644; J1650; J1720; J1756; J1815; J2250; J2270; J2370; J2405; J2543; J2710; J2930; J3010; J3370; J7030; J7040; J7050; J7060; J7120; P9016; P9045; Q9963; Q9967